=== PATIENT | female | born 1950 | race Caucasian/White ===

== ENCOUNTER 2017-03-12 04:20 | Inpatient (IN) ==
[2017-03-12 05:54] LABS: Hematocrit 36.9 VOL% (35.7-47.0); Hemoglobin 12.9 GM/DL (12.0-16.0); Lymphocytes % 5.4 % (21.3-54.2); Mean Corpuscular Hemoglobin 30 PG (27-34); Mean Corpuscular Volume 85.2 FL (87-102); Mean Platelet Volume 9.2 FL (9.6-12.0); Monocytes % 5.7 % (1.7-12.7); Neutrophils % 87.9 % (38.7-73.9); Platelet Count 298 T/CUMM (130-400); Red Blood Count 4.33 MC/CUMM (3.8-5.5); Red Cell Distribution Width 13.7 % (9.3-17.3)
[2017-03-12 05:55] LABS: Basophils % 0.2 % (0.0-0.8); Eosinophils % 0.2 % (0.00-10.9); Immature Granulocytes % 0.6 %; Immature Granulocytes Absolute 0.11 #; Monocytes # 1.1 10*3/uL (0.11-0.8); Neutrophils # 16.7 10*3/uL (1.4-7.4)
[2017-03-12] MEDS ORDERED: cefTRIAXone 1,000 MG in SODIUM CHLORIDE 0.9% 100 ML IV STA (06:02)
[2017-03-12] MEDS ORDERED: ACETAMINOPHEN 325 MG TABLET PO PRN (06:04)
[2017-03-12] MEDS ORDERED: ONDANSETRON 4 MG/2 ML VIAL IV PRN (06:04)
[2017-03-12] MEDS ORDERED: GLUCAGON 1 MG VIAL IM PRN (06:04)
[2017-03-12] MEDS ORDERED: DEXTROSE 50% 25 GM/50 ML VIAL IV PRN (06:04)
[2017-03-12 06:07] LABS: Apearance,Urine CLEAR (Clear); Bilirubin,Urine Negative (Negative); Blood, Urine Small mg/dL (Negative); Glucose,Urine (UA) 150 mg/dL (Negative); Ketones,Urine Negative (Negative); Mucus,Urine Occasional /LPF (Occasional); Nitrite,Urine Negative (Negative); Protein,Urine >=500 MG/DL; Urine Color Yellow (Yellow); Urine Specific Gravity 1.009 (1.001-1.035); Urine Urobilinogen < 2.0 EU/DL (0.2-1.0)
[2017-03-12 06:09] LABS: Barbiturates Screen,Urine Negative (Negative); Benzodiazepines Screen,Urine Positive (Negative); Cannabinoid Screen,Urine Negative (Negative); Opiate Screen,Urine Negative (Negative); Phencyclidine Screen,Urine Negative (Negative)
[2017-03-12] MEDS ORDERED: SODIUM CHLORIDE 0.9% 1,000 ML IV SCH (06:30)
[2017-03-12 06:31] LABS: Bilirubin,Total 0.4 MG/DL (0.2-1.0); Calcium 8.7 MG/DL (8.5-10.1); Osmolality,Calculated 290.3 MOS/KG (273-304); Potassium 4.2 MMOL/L (3.5-5.1); Total Protein 5.8 G/DL (6.4-8.3)
[2017-03-12] MEDS ORDERED: cefTRIAXone 1,000 MG VIAL ONE (07:03)
[2017-03-12] MEDS ORDERED: DEXTROSE 50% 25 GM/50 ML VIAL IV STA (07:18)
[2017-03-12] MEDS: DEXTROSE 5% NACL 0.9% 1,000 ML IV SCH ×2 (08:26→16:34)
[2017-03-12] MEDS ORDERED: [UNRECOGNIZED DRUG - OTHER] PO SCH (09:00)
[2017-03-12] MEDS: FLUoxetine 20 MG CAPSULE PO SCH (10:11)
[2017-03-12] MEDS: ALPRAZolam 0.5 MG TABLET PO SCH ×3 (10:11→20:57)
[2017-03-12] MEDS: DOCUSATE SODIUM 100 MG CAPSULE PO SCH ×2 (10:12→20:56)
[2017-03-12] MEDS: FELODIPINE 5 MG TABLET PO SCH (10:12)
[2017-03-12] MEDS: FENOFIBRATE 145 MG TABLET PO SCH (10:13)
[2017-03-12] MEDS: DIGOXIN 0.25 MG TABLET PO SCH (10:13)
[2017-03-12] MEDS: PANTOPRAZOLE 40 MG TABLET PO SCH (10:14)
[2017-03-12] MEDS: ATORVASTATIN 40 MG TABLET PO SCH (10:16)
[2017-03-12] MEDS: INSULIN REGULAR 100 UNIT/ML SUBCUT SCH ×3 (12:24→20:57)
[2017-03-13] MEDS: DEXTROSE 5% NACL 0.9% 1,000 ML IV SCH ×2 (00:35→17:25)
[2017-03-13 06:32] LABS: Basophils % 0.5 % (0.0-0.8); Eosinophils # 0.1 10*3/uL (0.0-0.87); Eosinophils % 0.6 % (0.00-10.9); Hematocrit 31.4 VOL% (35.7-47.0); Hemoglobin 10.6 GM/DL (12.0-16.0); Immature Granulocytes % 0.5 %; Immature Granulocytes Absolute 0.04 #; Lymphocytes # 1.7 10*3/uL (1.4-4.0); Lymphocytes % 20.2 % (21.3-54.2); Mean Corpuscular HGB Conc 33.8 GM/DL (32-36); Mean Corpuscular Hemoglobin 29 PG (27-34); Mean Corpuscular Volume 86.5 FL (87-102); Mean Platelet Volume 9.7 FL (9.6-12.0); Monocytes # 0.8 10*3/uL (0.11-0.8); Monocytes % 9.9 % (1.7-12.7); Neutrophils # 5.7 10*3/uL (1.4-7.4); Neutrophils % 68.3 % (38.7-73.9); Platelet Count 250 T/CUMM (130-400); Red Blood Count 3.63 MC/CUMM (3.8-5.5); Red Cell Distribution Width 14.4 % (9.3-17.3); White Blood Count 8.4 T/CUMM (4-12)
[2017-03-13] MEDS: LEVOTHYROXINE 100 MCG TABLET PO SCH (06:50)
[2017-03-13 07:09] LABS: Albumin 2.3 G/DL (3.4-5.0); Bilirubin,Total 0.8 MG/DL (0.2-1.0); Osmolality,Calculated 295.1 MOS/KG (273-304); Potassium 3.8 MMOL/L (3.5-5.1); Risk Ratio 4.18; Total Protein 4.8 G/DL (6.4-8.3); VLDL CHOLESTEROL 45.6 MG/DL
[2017-03-13 07:56] LABS: Free T4 (Free Thyroxine) 1.31 NG/DL (0.76-1.46); Thyroid Stimulating Hormone 0.078 uIU/ml (0.358-3.74)
[2017-03-13] MEDS: INSULIN REGULAR 100 UNIT/ML SUBCUT SCH ×4 (09:02→22:35)
[2017-03-13] MEDS: ALPRAZolam 0.5 MG TABLET PO SCH ×3 (09:03→21:40)
[2017-03-13 09:55] LABS: Basophils # 0.1 10*3/uL (0.0-0.2); Basophils % 0.7 % (0.0-0.8); Eosinophils # 0.1 10*3/uL (0.0-0.87); Eosinophils % 0.7 % (0.00-10.9); Hematocrit 31.1 VOL% (35.7-47.0); Hemoglobin 10.5 GM/DL (12.0-16.0); Immature Granulocytes % 0.5 %; Immature Granulocytes Absolute 0.04 #; Lymphocytes # 1.5 10*3/uL (1.4-4.0); Lymphocytes % 18.8 % (21.3-54.2); Mean Corpuscular HGB Conc 33.8 GM/DL (32-36); Mean Corpuscular Hemoglobin 30 PG (27-34); Mean Corpuscular Volume 87.4 FL (87-102); Mean Platelet Volume 9.2 FL (9.6-12.0); Monocytes # 0.7 10*3/uL (0.11-0.8); Monocytes % 7.9 % (1.7-12.7); Neutrophils # 5.8 10*3/uL (1.4-7.4); Neutrophils % 71.4 % (38.7-73.9); Platelet Count 245 T/CUMM (130-400); Red Blood Count 3.56 MC/CUMM (3.8-5.5); Red Cell Distribution Width 14.4 % (9.3-17.3); White Blood Count 8.2 T/CUMM (4-12)
[2017-03-13] MEDS: PANTOPRAZOLE 40 MG TABLET PO SCH (11:14)
[2017-03-13] MEDS: ATORVASTATIN 40 MG TABLET PO SCH (11:14)
[2017-03-13] MEDS: FLUoxetine 20 MG CAPSULE PO SCH ×2 (11:14→11:26)
[2017-03-13] MEDS: DOCUSATE SODIUM 100 MG CAPSULE PO SCH ×2 (11:46→21:37)
[2017-03-13] MEDS: DIGOXIN 0.25 MG TABLET PO SCH (11:46)
[2017-03-13] MEDS: FENOFIBRATE 145 MG TABLET PO SCH (11:50)
[2017-03-13] MEDS: FELODIPINE 5 MG TABLET PO SCH (11:50)
[2017-03-13] MEDS ORDERED: amLODIPine 5 MG TABLET PO SCH (14:00)
[2017-03-13] MEDS: amLODIPine 5 MG TABLET PO SCH ×2 (18:00→21:38)
[2017-03-13] MEDS ORDERED: FUROSEMIDE 40 MG TABLET PO SCH (21:00)
[2017-03-13] MEDS: CARVEDILOL 25 MG TABLET PO SCH (21:37)
[2017-03-14] MEDS: LEVOTHYROXINE 100 MCG TABLET PO SCH (06:48)
[2017-03-14] MEDS: FLUoxetine 20 MG CAPSULE PO SCH (09:28)
[2017-03-14] MEDS: DOCUSATE SODIUM 100 MG CAPSULE PO SCH ×2 (09:28→20:44)
[2017-03-14] MEDS: CARVEDILOL 25 MG TABLET PO SCH ×2 (09:29→20:44)
[2017-03-14] MEDS: DIGOXIN 0.25 MG TABLET PO SCH (09:30)
[2017-03-14] MEDS: FUROSEMIDE 40 MG TABLET PO SCH ×2 (09:30→18:49)
[2017-03-14] MEDS: PANTOPRAZOLE 40 MG TABLET PO SCH (09:31)
[2017-03-14] MEDS: amLODIPine 5 MG TABLET PO SCH ×2 (09:31→20:44)
[2017-03-14] MEDS: ATORVASTATIN 40 MG TABLET PO SCH (09:32)
[2017-03-14] MEDS: INSULIN REGULAR 100 UNIT/ML SUBCUT SCH ×4 (09:32→22:30)
[2017-03-14] MEDS: ALPRAZolam 0.5 MG TABLET PO SCH ×3 (09:34→20:47)
[2017-03-14] MEDS: FENOFIBRATE 145 MG TABLET PO SCH (09:42)
[2017-03-15] MEDS: LEVOTHYROXINE 100 MCG TABLET PO SCH (06:18)
[2017-03-15 08:43] LABS: Basophils # 0.1 10*3/uL (0.0-0.2); Basophils % 0.7 % (0.0-0.8); Eosinophils # 0.2 10*3/uL (0.0-0.87); Hematocrit 32.6 VOL% (35.7-47.0); Hemoglobin 11.3 GM/DL (12.0-16.0); Immature Granulocytes % 0.5 %; Immature Granulocytes Absolute 0.04 #; Lymphocytes # 1.5 10*3/uL (1.4-4.0); Mean Corpuscular HGB Conc 34.7 GM/DL (32-36); Mean Corpuscular Hemoglobin 29 PG (27-34); Mean Corpuscular Volume 84.9 FL (87-102); Mean Platelet Volume 9.4 FL (9.6-12.0); Monocytes # 0.5 10*3/uL (0.11-0.8); Monocytes % 6.7 % (1.7-12.7); Neutrophils # 5.7 10*3/uL (1.4-7.4); Neutrophils % 71.1 % (38.7-73.9); Platelet Count 292 T/CUMM (130-400); Red Blood Count 3.84 MC/CUMM (3.8-5.5); Red Cell Distribution Width 13.5 % (9.3-17.3)
[2017-03-15 09:08] LABS: Calcium 8.7 MG/DL (8.5-10.1); Magnesium 1.7 MG/DL (1.8-2.4); Osmolality,Calculated 294.1 MOS/KG (273-304); Potassium 3.8 MMOL/L (3.5-5.1)
[2017-03-15] MEDS: ALPRAZolam 0.5 MG TABLET PO SCH ×3 (09:22→21:23)
[2017-03-15] MEDS: FLUoxetine 20 MG CAPSULE PO SCH (09:23)
[2017-03-15] MEDS: INSULIN REGULAR 100 UNIT/ML SUBCUT SCH ×4 (09:23→21:23)
[2017-03-15] MEDS: amLODIPine 5 MG TABLET PO SCH ×2 (09:23→21:23)
[2017-03-15] MEDS: PANTOPRAZOLE 40 MG TABLET PO SCH (09:24)
[2017-03-15] MEDS: FUROSEMIDE 40 MG TABLET PO SCH ×2 (09:24→16:54)
[2017-03-15] MEDS: FENOFIBRATE 145 MG TABLET PO SCH (09:24)
[2017-03-15] MEDS: ATORVASTATIN 40 MG TABLET PO SCH (09:24)
[2017-03-15] MEDS: CARVEDILOL 25 MG TABLET PO SCH ×2 (09:24→21:19)
[2017-03-15] MEDS: DIGOXIN 0.25 MG TABLET PO SCH (09:24)
[2017-03-15] MEDS: DOCUSATE SODIUM 100 MG CAPSULE PO SCH ×3 (11:11→21:25)
[2017-03-15] MEDS: INSULIN ASPART PROTAMINE/ASPART 70/30 100 UNIT/ML SUBCUT SCH (16:57)
[2017-03-15] MEDS ORDERED: INSULIN GLARGINE 100 UNIT/ML SUBCUT SCH (21:00)
[2017-03-16] MEDS: FENOFIBRATE 145 MG TABLET PO SCH (10:00)
[2017-03-16] MEDS: DIGOXIN 0.25 MG TABLET PO SCH (10:00)
[2017-03-16] MEDS: ALPRAZolam 0.5 MG TABLET PO SCH (10:01)
[2017-03-16] MEDS: FUROSEMIDE 40 MG TABLET PO SCH (10:01)
[2017-03-16] MEDS: LEVOTHYROXINE 100 MCG TABLET PO SCH (10:01)
[2017-03-16] MEDS: PANTOPRAZOLE 40 MG TABLET PO SCH (10:01)
[2017-03-16] MEDS: FLUoxetine 20 MG CAPSULE PO SCH (10:01)
[2017-03-16] MEDS: amLODIPine 5 MG TABLET PO SCH (10:02)
[2017-03-16] MEDS: ATORVASTATIN 40 MG TABLET PO SCH (10:02)
[2017-03-16] MEDS: CARVEDILOL 25 MG TABLET PO SCH (10:02)
[2017-03-16] MEDS: DOCUSATE SODIUM 100 MG CAPSULE PO SCH (10:02)
[2017-03-16] MEDS: INSULIN REGULAR 100 UNIT/ML SUBCUT SCH ×2 (10:03→12:35)
[2017-03-16] MEDS: INSULIN ASPART PROTAMINE/ASPART 70/30 100 UNIT/ML SUBCUT SCH (10:17)
[2017-03-16 11:55] VITALS: BP 138/64
== END 2017-03-16 13:33 | disposition home health service (06) | DRG 637 ==
LOC: EDBD → EDUNIT# → N.ED 04:20 → N.EDINP 04:20 → N.TELES 08:06
PROVIDERS: ADMIT Family Medicine; ATTEND Family Medicine

== ENCOUNTER 2017-03-25 14:13 | Inpatient (IN) ==
[2017-03-25] MEDS ORDERED: MAGNESIUM HYDROXIDE SUSP 30 ML UDCUP PO PRN (14:19)
[2017-03-25] MEDS: PANTOPRAZOLE 40 MG VIAL IV SCH (17:31)
[2017-03-25] MEDS: SODIUM CHLORIDE 0.9% 1,000 ML IV SCH (17:31)
[2017-03-25] MEDS: INSULIN LISPRO 100 UNIT/ML SUBCUT SCH ×2 (17:34→23:19)
[2017-03-25 19:29] LABS: Basophils # 0.1 10*3/uL (0.0-0.2); Basophils % 0.5 % (0.0-0.8); Eosinophils % 0.1 % (0.00-10.9); Hematocrit 31.6 VOL% (35.7-47.0); Hemoglobin 10.6 GM/DL (12.0-16.0); Immature Granulocytes % 0.4 %; Immature Granulocytes Absolute 0.04 #; Lymphocytes # 1.1 10*3/uL (1.4-4.0); Lymphocytes % 11.4 % (21.3-54.2); Mean Corpuscular HGB Conc 33.5 GM/DL (32-36); Mean Corpuscular Hemoglobin 29 PG (27-34); Mean Corpuscular Volume 87.1 FL (87-102); Mean Platelet Volume 9.1 FL (9.6-12.0); Monocytes # 0.8 10*3/uL (0.11-0.8); Monocytes % 7.9 % (1.7-12.7); Neutrophils # 7.7 10*3/uL (1.4-7.4); Neutrophils % 79.7 % (38.7-73.9); Platelet Count 353 T/CUMM (130-400); Red Blood Count 3.63 MC/CUMM (3.8-5.5); Red Cell Distribution Width 13.8 % (9.3-17.3); White Blood Count 9.6 T/CUMM (4-12)
[2017-03-25 19:48] LABS: Albumin 2.9 G/DL (3.4-5.0); Bilirubin,Total 0.7 MG/DL (0.2-1.0); Calcium 8.4 MG/DL (8.5-10.1); Total Protein 5.8 G/DL (6.4-8.3)
[2017-03-25 19:49] LABS: Magnesium 1.7 MG/DL (1.8-2.4); Osmolality,Calculated 290.5 MOS/KG (273-304); Potassium 3.9 MMOL/L (3.5-5.1)
[2017-03-25 20:54] LABS: Apearance,Urine CLEAR (Clear); Bilirubin,Urine Negative (Negative); Blood, Urine Small mg/dL (Negative); Glucose,Urine (UA) 150 mg/dL (Negative); Hyaline Casts,Urine 10 /LPF (0-3); Ketones,Urine 5 mg/dL (Negative); Nitrite,Urine Negative (Negative); Protein,Urine >=500 MG/DL; RBC,Urine 4 /HPF (0-4); Squamous Epithelial Cell,Urine Occasional /HPF (0-10); Urine Color Yellow (Yellow); Urine Specific Gravity 1.042 (1.001-1.035); Urine Urobilinogen < 2.0 EU/DL (0.2-1.0); WBC,Urine 1 /HPF (0-6)
[2017-03-25] MEDS: CARVEDILOL 25 MG TABLET PO SCH (23:18)
[2017-03-25] MEDS: ALPRAZolam 0.5 MG TABLET PO SCH (23:18)
[2017-03-25] MEDS: ONDANSETRON 4 MG/2 ML VIAL IV PRN (23:22)
[2017-03-26] MEDS: SODIUM CHLORIDE 0.9% 1,000 ML IV SCH ×3 (02:13→18:15)
[2017-03-26] MEDS: LEVOTHYROXINE 125 MCG TABLET PO SCH (06:24)
[2017-03-26 07:09] LABS: Basophils # 0.1 10*3/uL (0.0-0.2); Basophils % 0.8 % (0.0-0.8); Eosinophils # 0.1 10*3/uL (0.0-0.87); Eosinophils % 1.3 % (0.00-10.9); Hematocrit 28.9 VOL% (35.7-47.0); Hemoglobin 9.9 GM/DL (12.0-16.0); Immature Granulocytes % 0.5 %; Immature Granulocytes Absolute 0.03 #; Lymphocytes # 1.3 10*3/uL (1.4-4.0); Mean Corpuscular HGB Conc 34.3 GM/DL (32-36); Mean Corpuscular Hemoglobin 29 PG (27-34); Mean Platelet Volume 8.8 FL (9.6-12.0); Monocytes # 0.6 10*3/uL (0.11-0.8); Monocytes % 9.2 % (1.7-12.7); Neutrophils % 66.2 % (38.7-73.9); Platelet Count 297 T/CUMM (130-400); White Blood Count 6.1 T/CUMM (4-12)
[2017-03-26 07:46] LABS: Osmolality,Calculated 286.5 MOS/KG (273-304); Potassium 3.5 MMOL/L (3.5-5.1); Risk Ratio 5.5; VLDL CHOLESTEROL 80.4 MG/DL
[2017-03-26 07:55] LABS: Free T4 (Free Thyroxine) 1.41 NG/DL (0.76-1.46); Thyroid Stimulating Hormone 0.193 uIU/ml (0.358-3.74)
[2017-03-26] MEDS ORDERED: GLUCAGON 1 MG VIAL IM PRN (08:23)
[2017-03-26] MEDS ORDERED: DEXTROSE 50% 25 GM/50 ML VIAL IV PRN (08:23)
[2017-03-26] MEDS: FLUoxetine 20 MG CAPSULE PO SCH (08:45)
[2017-03-26] MEDS: CARVEDILOL 25 MG TABLET PO SCH ×2 (08:45→21:05)
[2017-03-26] MEDS: ALPRAZolam 0.5 MG TABLET PO SCH ×3 (08:45→21:05)
[2017-03-26] MEDS: FENOFIBRATE 145 MG TABLET PO SCH (08:45)
[2017-03-26] MEDS: INSULIN LISPRO 100 UNIT/ML SUBCUT SCH ×4 (08:45→21:05)
[2017-03-26] MEDS: FELODIPINE 5 MG TABLET PO SCH (08:45)
[2017-03-26] MEDS: PANTOPRAZOLE 40 MG VIAL IV SCH (08:46)
[2017-03-26] MEDS: ATORVASTATIN 40 MG TABLET PO SCH (08:46)
[2017-03-26] MEDS: SOLIFENACIN 5 MG TABLET PO SCH (08:46)
[2017-03-26] MEDS ORDERED: ZINC OXIDE PASTE 113 GM TUBE TOP PRN (13:06)
[2017-03-27] MEDS: SODIUM CHLORIDE 0.9% 1,000 ML IV SCH ×3 (02:15→19:46)
[2017-03-27 05:49] LABS: Basophils % 0.7 % (0.0-0.8); Eosinophils # 0.2 10*3/uL (0.0-0.87); Eosinophils % 3.4 % (0.00-10.9); Hematocrit 27.3 VOL% (35.7-47.0); Hemoglobin 9.3 GM/DL (12.0-16.0); Immature Granulocytes % 0.6 %; Immature Granulocytes Absolute 0.03 #; Lymphocytes # 0.8 10*3/uL (1.4-4.0); Lymphocytes % 14.7 % (21.3-54.2); Mean Corpuscular HGB Conc 34.1 GM/DL (32-36); Mean Corpuscular Hemoglobin 29 PG (27-34); Mean Corpuscular Volume 85.8 FL (87-102); Monocytes # 0.5 10*3/uL (0.11-0.8); Monocytes % 9.1 % (1.7-12.7); Neutrophils # 3.8 10*3/uL (1.4-7.4); Neutrophils % 71.5 % (38.7-73.9); Platelet Count 286 T/CUMM (130-400); Red Blood Count 3.18 MC/CUMM (3.8-5.5); Red Cell Distribution Width 13.9 % (9.3-17.3); White Blood Count 5.4 T/CUMM (4-12)
[2017-03-27 06:12] LABS: Calcium 7.7 MG/DL (8.5-10.1); Potassium 4.1 MMOL/L (3.5-5.1)
[2017-03-27] MEDS: LEVOTHYROXINE 125 MCG TABLET PO SCH (06:35)
[2017-03-27] MEDS: INSULIN LISPRO 100 UNIT/ML SUBCUT SCH ×4 (09:58→21:05)
[2017-03-27] MEDS: ATORVASTATIN 40 MG TABLET PO SCH (10:30)
[2017-03-27] MEDS: CARVEDILOL 25 MG TABLET PO SCH ×2 (10:30→21:05)
[2017-03-27] MEDS: ALPRAZolam 0.5 MG TABLET PO SCH ×3 (10:30→21:05)
[2017-03-27] MEDS: ONDANSETRON 4 MG/2 ML VIAL IV PRN (10:30)
[2017-03-27] MEDS: SOLIFENACIN 5 MG TABLET PO SCH (10:30)
[2017-03-27] MEDS: FLUoxetine 20 MG CAPSULE PO SCH (10:31)
[2017-03-27] MEDS: FELODIPINE 5 MG TABLET PO SCH (10:31)
[2017-03-27] MEDS: FENOFIBRATE 145 MG TABLET PO SCH (10:31)
[2017-03-27] MEDS: PANTOPRAZOLE 40 MG VIAL IV SCH (10:32)
[2017-03-27] MEDS: ACETAMINOPHEN 325 MG TABLET PO PRN (21:02)
[2017-03-28] MEDS: SODIUM CHLORIDE 0.9% 1,000 ML IV SCH ×3 (03:46→22:44)
[2017-03-28 05:47] LABS: Basophils % 0.7 % (0.0-0.8); Hemoglobin 8.9 GM/DL (12.0-16.0); Immature Granulocytes % 0.5 %; Immature Granulocytes Absolute 0.02 #; Lymphocytes # 0.6 10*3/uL (1.4-4.0); Lymphocytes % 13.8 % (21.3-54.2); Mean Corpuscular Hemoglobin 29 PG (27-34); Mean Corpuscular Volume 88.5 FL (87-102); Mean Platelet Volume 9.3 FL (9.6-12.0); Monocytes # 0.5 10*3/uL (0.11-0.8); Monocytes % 12.6 % (1.7-12.7); Neutrophils # 2.9 10*3/uL (1.4-7.4); Neutrophils % 71.4 % (38.7-73.9); Platelet Count 238 T/CUMM (130-400); Red Blood Count 3.05 MC/CUMM (3.8-5.5); Red Cell Distribution Width 14.1 % (9.3-17.3); White Blood Count 4.1 T/CUMM (4-12)
[2017-03-28] MEDS: LEVOTHYROXINE 125 MCG TABLET PO SCH (05:50)
[2017-03-28 06:21] LABS: Albumin 2.4 G/DL (3.4-5.0); Bilirubin,Total 0.7 MG/DL (0.2-1.0); Calcium 7.6 MG/DL (8.5-10.1); Magnesium 1.5 MG/DL (1.8-2.4); Potassium 3.8 MMOL/L (3.5-5.1)
[2017-03-28] MEDS: cefTRIAXone 1,000 MG in SYRINGE 1 EACH IV SCH (06:37)
[2017-03-28] MEDS: ONDANSETRON 4 MG/2 ML VIAL IV PRN ×2 (07:37→20:51)
[2017-03-28] MEDS: ACETAMINOPHEN 325 MG TABLET PO PRN ×3 (07:45→21:37)
[2017-03-28] MEDS: PANTOPRAZOLE 40 MG VIAL IV SCH (08:10)
[2017-03-28] MEDS: INSULIN LISPRO 100 UNIT/ML SUBCUT SCH ×4 (08:59→20:51)
[2017-03-28] MEDS: FLUoxetine 20 MG CAPSULE PO SCH (09:25)
[2017-03-28] MEDS: ALPRAZolam 0.5 MG TABLET PO SCH ×5 (09:25→21:41)
[2017-03-28] MEDS: FELODIPINE 5 MG TABLET PO SCH (09:25)
[2017-03-28] MEDS: FENOFIBRATE 145 MG TABLET PO SCH (09:25)
[2017-03-28] MEDS: CARVEDILOL 25 MG TABLET PO SCH ×4 (09:25→21:41)
[2017-03-28] MEDS: ATORVASTATIN 40 MG TABLET PO SCH (09:25)
[2017-03-28] MEDS: SOLIFENACIN 5 MG TABLET PO SCH (09:25)
[2017-03-28] MEDS ORDERED: MAGNESIUM SULF RIDER 2 GM in PREMIX 1 EACH IV ONE (12:37)
[2017-03-28] MEDS ORDERED: ALUMINUM/MAGNES/SIMETH MAX STR 30 ML UDCUP PO ONE (12:45)
[2017-03-28] MEDS ORDERED: ACETAMINOPHEN 650 MG SUPP RECTAL PRN (22:15)
[2017-03-28] MEDS: methylPREDNISolone SOD SUC 40 MG/1 ML VIAL IV SCH (22:45)
[2017-03-28 23:12] LABS: Apearance,Urine CLEAR (Clear); Bilirubin,Urine Negative (Negative); Blood, Urine Small mg/dL (Negative); Glucose,Urine (UA) 50 mg/dL (Negative); Ketones,Urine 5 mg/dL (Negative); Nitrite,Urine Negative (Negative); Protein,Urine 100 MG/DL; RBC,Urine 1 /HPF (0-4); Urine Color Yellow (Yellow); Urine Specific Gravity 1.008 (1.001-1.035); Urine Urobilinogen < 2.0 EU/DL (0.2-1.0); WBC,Urine <1 /HPF (0-6)
[2017-03-29] MEDS: KETOROLAC 15 MG/1 ML VIAL IV SCH ×2 (01:07→12:10)
[2017-03-29 02:33] LABS: Hematocrit 27.6 VOL% (35.7-47.0); Hemoglobin 9.5 GM/DL (12.0-16.0); Red Blood Count 3.22 MC/CUMM (3.8-5.5); White Blood Count 4.1 T/CUMM (4-12)
[2017-03-29 02:34] LABS: Basophils % 0.5 % (0.0-0.8); Immature Granulocytes % 0.7 %; Immature Granulocytes Absolute 0.03 #; Lymphocytes # 0.4 10*3/uL (1.4-4.0); Lymphocytes % 8.7 % (21.3-54.2); Mean Corpuscular HGB Conc 34.4 GM/DL (32-36); Mean Corpuscular Hemoglobin 30 PG (27-34); Mean Corpuscular Volume 85.7 FL (87-102); Mean Platelet Volume 9.2 FL (9.6-12.0); Monocytes # 0.2 10*3/uL (0.11-0.8); Monocytes % 3.9 % (1.7-12.7); Neutrophils # 3.6 10*3/uL (1.4-7.4); Neutrophils % 86.2 % (38.7-73.9); Platelet Count 202 T/CUMM (130-400)
[2017-03-29 03:03] LABS: Calcium 7.3 MG/DL (8.5-10.1); Osmolality,Calculated 286.3 MOS/KG (273-304); Potassium 3.3 MMOL/L (3.5-5.1)
[2017-03-29 05:04] LABS: Platelet Estimate Normal
[2017-03-29] MEDS: cefTRIAXone 1,000 MG in SYRINGE 1 EACH IV SCH (06:00)
[2017-03-29] MEDS: LEVOTHYROXINE 125 MCG TABLET PO SCH (06:00)
[2017-03-29] MEDS: INSULIN LISPRO 100 UNIT/ML SUBCUT SCH ×4 (08:15→21:04)
[2017-03-29] MEDS: FENOFIBRATE 145 MG TABLET PO SCH (08:16)
[2017-03-29] MEDS: SOLIFENACIN 5 MG TABLET PO SCH (08:16)
[2017-03-29] MEDS: PANTOPRAZOLE 40 MG VIAL IV SCH (08:16)
[2017-03-29] MEDS: FELODIPINE 5 MG TABLET PO SCH (08:16)
[2017-03-29] MEDS: ONDANSETRON 4 MG/2 ML VIAL IV PRN (08:16)
[2017-03-29] MEDS: ATORVASTATIN 40 MG TABLET PO SCH (08:17)
[2017-03-29] MEDS: CARVEDILOL 25 MG TABLET PO SCH ×2 (08:17→21:02)
[2017-03-29] MEDS: ALPRAZolam 0.5 MG TABLET PO SCH ×3 (08:17→21:02)
[2017-03-29] MEDS: FLUoxetine 20 MG CAPSULE PO SCH (08:17)
[2017-03-29] MEDS: SODIUM CHLORIDE 0.9% 1,000 ML IV SCH ×2 (09:08→20:10)
[2017-03-29] MEDS: methylPREDNISolone SOD SUC 40 MG/1 ML VIAL IV SCH ×2 (09:34→21:50)
[2017-03-29] MEDS: NYSTATIN 500,000 UNIT/5 ML UDCUP SWISH/SWAL SCH ×3 (13:54→21:03)
[2017-03-29] MEDS: OSELTAMIVIR 75 MG CAPSULE PO SCH ×2 (16:22→21:02)
[2017-03-30] MEDS: KETOROLAC 15 MG/1 ML VIAL IV SCH ×2 (00:44→12:22)
[2017-03-30] MEDS: SODIUM CHLORIDE 0.9% 1,000 ML IV SCH (05:30)
[2017-03-30] MEDS: cefTRIAXone 1,000 MG in SYRINGE 1 EACH IV SCH (06:06)
[2017-03-30] MEDS: LEVOTHYROXINE 125 MCG TABLET PO SCH ×2 (06:09→07:40)
[2017-03-30] MEDS: INSULIN LISPRO 100 UNIT/ML SUBCUT SCH ×4 (08:51→21:03)
[2017-03-30] MEDS: PANTOPRAZOLE 40 MG VIAL IV SCH (08:52)
[2017-03-30] MEDS: ONDANSETRON 4 MG/2 ML VIAL IV PRN (08:52)
[2017-03-30] MEDS: SOLIFENACIN 5 MG TABLET PO SCH (08:56)
[2017-03-30] MEDS: NYSTATIN 500,000 UNIT/5 ML UDCUP SWISH/SWAL SCH ×4 (08:56→20:00)
[2017-03-30] MEDS: FENOFIBRATE 145 MG TABLET PO SCH (08:56)
[2017-03-30] MEDS: ATORVASTATIN 40 MG TABLET PO SCH (08:56)
[2017-03-30] MEDS: ALPRAZolam 0.5 MG TABLET PO SCH ×3 (08:57→20:00)
[2017-03-30] MEDS: CARVEDILOL 25 MG TABLET PO SCH ×2 (08:57→20:00)
[2017-03-30] MEDS: FELODIPINE 5 MG TABLET PO SCH (08:57)
[2017-03-30] MEDS: FLUoxetine 20 MG CAPSULE PO SCH (08:57)
[2017-03-30] MEDS: OSELTAMIVIR 75 MG CAPSULE PO SCH ×2 (08:57→20:00)
[2017-03-30] MEDS: SODIUM CHLOR 0.45% KCL 20 MEQ 20 MEQ/1,000 ML BAG IV SCH ×2 (09:07→17:01)
[2017-03-30] MEDS: DIGOXIN 0.25 MG TABLET PO SCH (12:23)
[2017-03-30] MEDS ORDERED: PHENOL 1.4% THROAT SPRAY 177 ML BOTTLE PO PRN (16:49)
[2017-03-30] MEDS: traZODone 50 MG TABLET PO PRN (20:00)
[2017-03-31] MEDS: KETOROLAC 15 MG/1 ML VIAL IV SCH ×3 (00:32→22:30)
[2017-03-31] MEDS: SODIUM CHLOR 0.45% KCL 20 MEQ 20 MEQ/1,000 ML BAG IV SCH ×3 (00:33→17:05)
[2017-03-31] MEDS: LEVOTHYROXINE 125 MCG TABLET PO SCH (05:37)
[2017-03-31 06:40] LABS: Basophils % 0.2 % (0.0-0.8); Hematocrit 30.5 VOL% (35.7-47.0); Hemoglobin 10.1 GM/DL (12.0-16.0); Immature Granulocytes % 0.5 %; Immature Granulocytes Absolute 0.02 #; Lymphocytes # 1.1 10*3/uL (1.4-4.0); Lymphocytes % 25.1 % (21.3-54.2); Mean Corpuscular HGB Conc 33.1 GM/DL (32-36); Mean Corpuscular Hemoglobin 29 PG (27-34); Mean Corpuscular Volume 87.1 FL (87-102); Mean Platelet Volume 10.1 FL (9.6-12.0); Monocytes # 0.3 10*3/uL (0.11-0.8); Neutrophils # 2.9 10*3/uL (1.4-7.4); Neutrophils % 68.2 % (38.7-73.9); Platelet Count 239 T/CUMM (130-400); Red Cell Distribution Width 14.8 % (9.3-17.3); White Blood Count 4.2 T/CUMM (4-12)
[2017-03-31 07:03] LABS: Calcium 7.4 MG/DL (8.5-10.1); Osmolality,Calculated 291.8 MOS/KG (273-304); Potassium 3.1 MMOL/L (3.5-5.1)
[2017-03-31] MEDS: POTASSIUM CHLORIDE 10 MEQ TABLET PO SCH ×3 (09:00→22:35)
[2017-03-31] MEDS: NYSTATIN 500,000 UNIT/5 ML UDCUP SWISH/SWAL SCH ×4 (09:00→22:36)
[2017-03-31] MEDS: OSELTAMIVIR 75 MG CAPSULE PO SCH ×3 (09:00→22:35)
[2017-03-31] MEDS: PANTOPRAZOLE 40 MG VIAL IV SCH ×2 (09:00→12:47)
[2017-03-31] MEDS: cefTRIAXone 1,000 MG in SYRINGE 1 EACH IV SCH ×2 (09:00→12:50)
[2017-03-31] MEDS: FENOFIBRATE 145 MG TABLET PO SCH ×2 (09:00→12:49)
[2017-03-31] MEDS: ATORVASTATIN 40 MG TABLET PO SCH ×2 (09:00→12:48)
[2017-03-31] MEDS: CARVEDILOL 25 MG TABLET PO SCH ×3 (09:00→22:36)
[2017-03-31] MEDS: SOLIFENACIN 5 MG TABLET PO SCH ×2 (09:00→12:49)
[2017-03-31] MEDS: FLUoxetine 20 MG CAPSULE PO SCH ×2 (09:00→12:50)
[2017-03-31] MEDS: ALPRAZolam 0.5 MG TABLET PO SCH ×4 (09:00→22:35)
[2017-03-31] MEDS: FELODIPINE 5 MG TABLET PO SCH ×2 (09:00→12:50)
[2017-03-31] MEDS ORDERED: POTASSIUM CHLORIDE INJ 30 MEQ in SODIUM CHLORIDE 0.9% 500 ML IV ONE (09:30)
[2017-03-31] MEDS: INSULIN LISPRO 100 UNIT/ML SUBCUT SCH ×4 (10:22→22:37)
[2017-03-31] MEDS: ACETAMINOPHEN 325 MG TABLET PO PRN (10:26)
[2017-03-31] MEDS: ONDANSETRON 4 MG/2 ML VIAL IV PRN (12:34)
[2017-03-31] MEDS: DIGOXIN 0.25 MG TABLET PO SCH (13:50)
[2017-04-01] MEDS: SODIUM CHLOR 0.45% KCL 20 MEQ 20 MEQ/1,000 ML BAG IV SCH ×2 (01:40→14:26)
[2017-04-01] MEDS: ACETAMINOPHEN 325 MG TABLET PO PRN (05:36)
[2017-04-01] MEDS: LEVOTHYROXINE 125 MCG TABLET PO SCH (05:37)
[2017-04-01 06:09] LABS: Basophils % 0.3 % (0.0-0.8); Hematocrit 27.1 VOL% (35.7-47.0); Hemoglobin 9.1 GM/DL (12.0-16.0); Immature Granulocytes % 0.3 %; Immature Granulocytes Absolute 0.01 #; Lymphocytes # 1.4 10*3/uL (1.4-4.0); Lymphocytes % 40.9 % (21.3-54.2); Mean Corpuscular HGB Conc 33.6 GM/DL (32-36); Mean Corpuscular Hemoglobin 29 PG (27-34); Mean Corpuscular Volume 87.4 FL (87-102); Mean Platelet Volume 9.9 FL (9.6-12.0); Monocytes # 0.3 10*3/uL (0.11-0.8); Monocytes % 7.6 % (1.7-12.7); Neutrophils # 1.7 10*3/uL (1.4-7.4); Neutrophils % 50.9 % (38.7-73.9); Platelet Count 204 T/CUMM (130-400); Red Cell Distribution Width 14.8 % (9.3-17.3); White Blood Count 3.4 T/CUMM (4-12)
[2017-04-01 06:45] LABS: Calcium 6.8 MG/DL (8.5-10.1); Potassium 3.4 MMOL/L (3.5-5.1)
[2017-04-01] MEDS: INSULIN LISPRO 100 UNIT/ML SUBCUT SCH ×4 (08:00→21:46)
[2017-04-01] MEDS: NYSTATIN 500,000 UNIT/5 ML UDCUP SWISH/SWAL SCH ×4 (10:18→21:56)
[2017-04-01] MEDS: SOLIFENACIN 5 MG TABLET PO SCH (10:18)
[2017-04-01] MEDS: FENOFIBRATE 145 MG TABLET PO SCH (10:19)
[2017-04-01] MEDS: ALPRAZolam 0.5 MG TABLET PO SCH ×3 (10:19→21:57)
[2017-04-01] MEDS: CARVEDILOL 25 MG TABLET PO SCH ×2 (10:19→21:56)
[2017-04-01] MEDS: POTASSIUM CHLORIDE 10 MEQ TABLET PO SCH ×2 (10:20→21:56)
[2017-04-01] MEDS: FELODIPINE 5 MG TABLET PO SCH (10:20)
[2017-04-01] MEDS: KETOROLAC 15 MG/1 ML VIAL IV SCH ×2 (10:20→21:54)
[2017-04-01] MEDS: ATORVASTATIN 40 MG TABLET PO SCH (10:20)
[2017-04-01] MEDS: OSELTAMIVIR 75 MG CAPSULE PO SCH ×2 (10:20→21:56)
[2017-04-01] MEDS: FLUoxetine 20 MG CAPSULE PO SCH (10:20)
[2017-04-01] MEDS: PANTOPRAZOLE 40 MG VIAL IV SCH (10:22)
[2017-04-01] MEDS: cefTRIAXone 1,000 MG in SYRINGE 1 EACH IV SCH (10:31)
[2017-04-01] MEDS: DIGOXIN 0.25 MG TABLET PO SCH (13:55)
[2017-04-02] MEDS: SODIUM CHLOR 0.45% KCL 20 MEQ 20 MEQ/1,000 ML BAG IV SCH ×4 (01:00→18:45)
[2017-04-02] MEDS: LEVOTHYROXINE 125 MCG TABLET PO SCH (06:34)
[2017-04-02 07:18] LABS: Basophils % 0.3 % (0.0-0.8); Eosinophils % 0.6 % (0.00-10.9); Hematocrit 28.6 VOL% (35.7-47.0); Hemoglobin 9.6 GM/DL (12.0-16.0); Immature Granulocytes % 0.6 %; Immature Granulocytes Absolute 0.02 #; Lymphocytes # 1.3 10*3/uL (1.4-4.0); Lymphocytes % 36.1 % (21.3-54.2); Mean Corpuscular HGB Conc 33.6 GM/DL (32-36); Mean Corpuscular Hemoglobin 29 PG (27-34); Mean Corpuscular Volume 85.6 FL (87-102); Mean Platelet Volume 10.1 FL (9.6-12.0); Monocytes # 0.2 10*3/uL (0.11-0.8); Monocytes % 6.8 % (1.7-12.7); Neutrophils % 55.6 % (38.7-73.9); Platelet Count 208 T/CUMM (130-400); Red Blood Count 3.34 MC/CUMM (3.8-5.5); Red Cell Distribution Width 15.5 % (9.3-17.3); White Blood Count 3.6 T/CUMM (4-12)
[2017-04-02 07:39] LABS: Burr Cells Slight; Giant Platelets Few; Hypochromasia 1+; Ovalocytes Slight; Platelet Estimate Adequate
[2017-04-02 07:51] LABS: Calcium 6.7 MG/DL (8.5-10.1)
[2017-04-02 08:00] LABS: Alanine Aminotransferase 28 U/L (13-56); Albumin 1.5 G/DL (3.4-5.0); Alkaline Phosphatase 36 U/L (45-117); Aspartate Amino Transferase 41 U/L (0-37); Bilirubin,Total < 0.39 MG/DL (0.2-1.0); Blood Urea Nitrogen 22 MG/DL (7-18); Calcium 6.8 MG/DL (8.5-10.1); Glucose 118 MG/DL (74-106); Osmolality,Calculated 289.8 MOS/KG (273-304); Potassium 4.1 MMOL/L (3.5-5.1); Sodium 144 MMOL/L (136-145); Total Protein 4.3 G/DL (6.4-8.3)
[2017-04-02] MEDS: INSULIN LISPRO 100 UNIT/ML SUBCUT SCH ×4 (08:20→21:01)
[2017-04-02] MEDS: PANTOPRAZOLE 40 MG VIAL IV SCH (10:10)
[2017-04-02] MEDS: ATORVASTATIN 40 MG TABLET PO SCH (10:11)
[2017-04-02] MEDS: SOLIFENACIN 5 MG TABLET PO SCH (10:11)
[2017-04-02] MEDS: FELODIPINE 5 MG TABLET PO SCH (10:11)
[2017-04-02] MEDS: cefTRIAXone 1,000 MG in SYRINGE 1 EACH IV SCH (10:11)
[2017-04-02] MEDS: NYSTATIN 500,000 UNIT/5 ML UDCUP SWISH/SWAL SCH ×4 (10:11→20:59)
[2017-04-02] MEDS: FENOFIBRATE 145 MG TABLET PO SCH (10:12)
[2017-04-02] MEDS: OSELTAMIVIR 75 MG CAPSULE PO SCH ×2 (10:12→20:58)
[2017-04-02] MEDS: CARVEDILOL 25 MG TABLET PO SCH ×2 (10:12→20:58)
[2017-04-02] MEDS: POTASSIUM CHLORIDE 10 MEQ TABLET PO SCH ×2 (10:12→20:58)
[2017-04-02] MEDS: FLUoxetine 20 MG CAPSULE PO SCH (10:12)
[2017-04-02] MEDS: KETOROLAC 15 MG/1 ML VIAL IV SCH ×2 (10:13→20:59)
[2017-04-02] MEDS: DIGOXIN 0.25 MG TABLET PO SCH (13:01)
[2017-04-03 04:53] LABS: Basophils % 0.3 % (0.0-0.8); Hematocrit 29.8 VOL% (35.7-47.0); Hemoglobin 10.2 GM/DL (12.0-16.0); Immature Granulocytes % 0.8 %; Immature Granulocytes Absolute 0.03 #; Lymphocytes # 1.6 10*3/uL (1.4-4.0); Lymphocytes % 38.8 % (21.3-54.2); Mean Corpuscular HGB Conc 34.2 GM/DL (32-36); Mean Corpuscular Hemoglobin 29 PG (27-34); Mean Corpuscular Volume 85.4 FL (87-102); Mean Platelet Volume 10.6 FL (9.6-12.0); Monocytes # 0.3 10*3/uL (0.11-0.8); Neutrophils # 2.1 10*3/uL (1.4-7.4); Neutrophils % 52.1 % (38.7-73.9); Platelet Count 266 T/CUMM (130-400); Red Blood Count 3.49 MC/CUMM (3.8-5.5); Red Cell Distribution Width 15.3 % (9.3-17.3)
[2017-04-03] MEDS: SODIUM CHLOR 0.45% KCL 20 MEQ 20 MEQ/1,000 ML BAG IV SCH ×2 (05:21→13:07)
[2017-04-03 05:23] LABS: Calcium 7.6 MG/DL (8.5-10.1); Magnesium 1.3 MG/DL (1.8-2.4); Osmolality,Calculated 288.1 MOS/KG (273-304); Potassium 4.4 MMOL/L (3.5-5.1)
[2017-04-03 05:39] LABS: Platelet Estimate Normal; Polychromasia Slight
[2017-04-03] MEDS: LEVOTHYROXINE 125 MCG TABLET PO SCH (06:17)
[2017-04-03] MEDS ORDERED: MAGNESIUM SULF RIDER 2 GM in PREMIX 1 EACH IV ONE (07:08)
[2017-04-03] MEDS: ONDANSETRON 4 MG/2 ML VIAL IV PRN ×2 (07:25→20:53)
[2017-04-03] MEDS: FENOFIBRATE 145 MG TABLET PO SCH (08:50)
[2017-04-03] MEDS: NYSTATIN 500,000 UNIT/5 ML UDCUP SWISH/SWAL SCH ×4 (08:50→20:52)
[2017-04-03] MEDS: CARVEDILOL 25 MG TABLET PO SCH ×2 (08:50→20:52)
[2017-04-03] MEDS: FLUoxetine 20 MG CAPSULE PO SCH (08:50)
[2017-04-03] MEDS: INSULIN LISPRO 100 UNIT/ML SUBCUT SCH ×4 (08:50→21:11)
[2017-04-03] MEDS: FELODIPINE 5 MG TABLET PO SCH (08:50)
[2017-04-03] MEDS: OSELTAMIVIR 75 MG CAPSULE PO SCH ×2 (08:50→20:52)
[2017-04-03] MEDS: ATORVASTATIN 40 MG TABLET PO SCH (08:50)
[2017-04-03] MEDS: SOLIFENACIN 5 MG TABLET PO SCH (08:50)
[2017-04-03] MEDS: POTASSIUM CHLORIDE 10 MEQ TABLET PO SCH ×2 (08:50→20:53)
[2017-04-03] MEDS: cefTRIAXone 1,000 MG in SYRINGE 1 EACH IV SCH (08:51)
[2017-04-03] MEDS: PANTOPRAZOLE 40 MG VIAL IV SCH (08:51)
[2017-04-03] MEDS: DIGOXIN 0.25 MG TABLET PO SCH (13:07)
[2017-04-03] MEDS ORDERED: CLORAZEPATE 3.75 MG TABLET PO PRN (16:12)
[2017-04-03] MEDS: traZODone 50 MG TABLET PO PRN (20:53)
[2017-04-04 03:39] LABS: Basophils % 0.7 % (0.0-0.8); Eosinophils # 0.1 10*3/uL (0.0-0.87); Eosinophils % 1.3 % (0.00-10.9); Hematocrit 28.7 VOL% (35.7-47.0); Hemoglobin 9.7 GM/DL (12.0-16.0); Immature Granulocytes % 0.7 %; Immature Granulocytes Absolute 0.03 #; Lymphocytes # 1.7 10*3/uL (1.4-4.0); Lymphocytes % 36.2 % (21.3-54.2); Mean Corpuscular HGB Conc 33.8 GM/DL (32-36); Mean Corpuscular Hemoglobin 29 PG (27-34); Mean Corpuscular Volume 86.2 FL (87-102); Mean Platelet Volume 9.8 FL (9.6-12.0); Monocytes # 0.4 10*3/uL (0.11-0.8); Monocytes % 7.6 % (1.7-12.7); Neutrophils # 2.5 10*3/uL (1.4-7.4); Neutrophils % 53.5 % (38.7-73.9); Platelet Count 342 T/CUMM (130-400); Red Blood Count 3.33 MC/CUMM (3.8-5.5); Red Cell Distribution Width 15.4 % (9.3-17.3); White Blood Count 4.6 T/CUMM (4-12)
[2017-04-04 04:07] LABS: Calcium 7.7 MG/DL (8.5-10.1); Osmolality,Calculated 289.7 MOS/KG (273-304); Potassium 4.5 MMOL/L (3.5-5.1)
[2017-04-04] MEDS: SODIUM CHLOR 0.45% KCL 20 MEQ 20 MEQ/1,000 ML BAG IV SCH ×4 (04:52→11:32)
[2017-04-04 05:02] LABS: Band Neutrophils 1 % (0-10); Eosinophils 4 % (0-10); Lymphocytes 29 % (20-55); Metamyelocytes 1 %; Segmented Neutrophils 62 % (50-85); Total Cells Counted 100
[2017-04-04 05:03] LABS: Anisocytosis 1+; Hypochromasia Slight; Platelet Estimate Normal
[2017-04-04] MEDS: LEVOTHYROXINE 125 MCG TABLET PO SCH (06:46)
[2017-04-04] MEDS: INSULIN LISPRO 100 UNIT/ML SUBCUT SCH ×4 (08:14→21:38)
[2017-04-04] MEDS: SOLIFENACIN 5 MG TABLET PO SCH (09:25)
[2017-04-04] MEDS: NYSTATIN 500,000 UNIT/5 ML UDCUP SWISH/SWAL SCH ×4 (09:25→21:33)
[2017-04-04] MEDS: FENOFIBRATE 145 MG TABLET PO SCH (09:26)
[2017-04-04] MEDS: ATORVASTATIN 40 MG TABLET PO SCH (09:26)
[2017-04-04] MEDS: FELODIPINE 5 MG TABLET PO SCH (09:26)
[2017-04-04] MEDS: PANTOPRAZOLE 40 MG VIAL IV SCH (09:26)
[2017-04-04] MEDS: CARVEDILOL 25 MG TABLET PO SCH ×2 (09:26→21:33)
[2017-04-04] MEDS: cefTRIAXone 1,000 MG in SYRINGE 1 EACH IV SCH (09:26)
[2017-04-04] MEDS: POTASSIUM CHLORIDE 10 MEQ TABLET PO SCH ×2 (09:26→21:33)
[2017-04-04] MEDS: FLUoxetine 20 MG CAPSULE PO SCH (09:26)
[2017-04-04] MEDS: DIGOXIN 0.25 MG TABLET PO SCH (14:09)
[2017-04-04] MEDS: traZODone 50 MG TABLET PO PRN (21:33)
[2017-04-05] MEDS: SODIUM CHLOR 0.45% KCL 20 MEQ 20 MEQ/1,000 ML BAG IV SCH ×2 (01:07→16:34)
[2017-04-05] MEDS: LEVOTHYROXINE 125 MCG TABLET PO SCH (06:00)
[2017-04-05] MEDS: INSULIN LISPRO 100 UNIT/ML SUBCUT SCH ×4 (07:30→21:34)
[2017-04-05 08:45] LABS: Basophils % 0.5 % (0.0-0.8); Eosinophils # 0.1 10*3/uL (0.0-0.87); Eosinophils % 2.4 % (0.00-10.9); Hematocrit 32.5 VOL% (35.7-47.0); Hemoglobin 10.5 GM/DL (12.0-16.0); Immature Granulocytes % 1.7 %; Immature Granulocytes Absolute 0.07 #; Lymphocytes % 24.2 % (21.3-54.2); Mean Corpuscular HGB Conc 32.3 GM/DL (32-36); Mean Corpuscular Hemoglobin 29 PG (27-34); Mean Corpuscular Volume 88.6 FL (87-102); Monocytes # 0.3 10*3/uL (0.11-0.8); Monocytes % 8.1 % (1.7-12.7); Neutrophils # 2.6 10*3/uL (1.4-7.4); Neutrophils % 63.1 % (38.7-73.9); Platelet Count 381 T/CUMM (130-400); Red Blood Count 3.67 MC/CUMM (3.8-5.5); Red Cell Distribution Width 15.5 % (9.3-17.3); White Blood Count 4.2 T/CUMM (4-12)
[2017-04-05 09:02] LABS: Calcium 8.2 MG/DL (8.5-10.1); Osmolality,Calculated 286.8 MOS/KG (273-304); Potassium 4.7 MMOL/L (3.5-5.1)
[2017-04-05 09:14] LABS: Lymphocytes 19 % (20-55); Segmented Neutrophils 73 % (50-85); Total Cells Counted 100
[2017-04-05 09:24] LABS: Hypochromasia 1+
[2017-04-05 09:26] LABS: Platelet Estimate Normal
[2017-04-05] MEDS: ATORVASTATIN 40 MG TABLET PO SCH (11:30)
[2017-04-05] MEDS: NYSTATIN 500,000 UNIT/5 ML UDCUP SWISH/SWAL SCH ×4 (11:30→21:35)
[2017-04-05] MEDS: FELODIPINE 5 MG TABLET PO SCH (11:30)
[2017-04-05] MEDS: FENOFIBRATE 145 MG TABLET PO SCH (11:30)
[2017-04-05] MEDS: FLUoxetine 20 MG CAPSULE PO SCH (11:30)
[2017-04-05] MEDS: CARVEDILOL 25 MG TABLET PO SCH ×2 (11:36→21:34)
[2017-04-05] MEDS: POTASSIUM CHLORIDE 10 MEQ TABLET PO SCH ×2 (11:36→21:35)
[2017-04-05] MEDS: SOLIFENACIN 5 MG TABLET PO SCH (11:36)
[2017-04-05] MEDS: PANTOPRAZOLE 40 MG VIAL IV SCH (11:55)
[2017-04-05] MEDS: cefTRIAXone 1,000 MG in SYRINGE 1 EACH IV SCH (11:57)
[2017-04-05] MEDS: DIGOXIN 0.25 MG TABLET PO SCH (13:59)
[2017-04-06] MEDS: LEVOTHYROXINE 125 MCG TABLET PO SCH (06:31)
[2017-04-06] MEDS: CARVEDILOL 25 MG TABLET PO SCH (09:07)
[2017-04-06] MEDS: POTASSIUM CHLORIDE 10 MEQ TABLET PO SCH (09:08)
[2017-04-06] MEDS: NYSTATIN 500,000 UNIT/5 ML UDCUP SWISH/SWAL SCH (09:08)
[2017-04-06] MEDS: ATORVASTATIN 40 MG TABLET PO SCH (09:09)
[2017-04-06] MEDS: PANTOPRAZOLE 40 MG VIAL IV SCH (09:10)
[2017-04-06] MEDS: FELODIPINE 5 MG TABLET PO SCH (09:10)
[2017-04-06] MEDS: SOLIFENACIN 5 MG TABLET PO SCH (09:14)
[2017-04-06] MEDS: FENOFIBRATE 145 MG TABLET PO SCH (09:14)
[2017-04-06] MEDS: FLUoxetine 20 MG CAPSULE PO SCH (09:14)
[2017-04-06] MEDS: INSULIN LISPRO 100 UNIT/ML SUBCUT SCH ×2 (11:56→12:40)
[2017-04-06] MEDS: SODIUM CHLOR 0.45% KCL 20 MEQ 20 MEQ/1,000 ML BAG IV SCH (11:57)
[2017-04-06 12:29] VITALS: BP 138/63
== END 2017-04-06 12:35 | disposition swing bed (61) | DRG 194 ==
LOC: N.2E 16:12
PROVIDERS: ADMIT Family Medicine; ATTEND Family Medicine

== ENCOUNTER 2017-05-03 18:30 | Inpatient (IN) ==
[2017-05-03] MEDS ORDERED: ONDANSETRON 4 MG/2 ML VIAL IV STA (19:33)
[2017-05-03] MEDS ORDERED: SODIUM CHLORIDE 0.9% 500 ML IV STA (19:33)
[2017-05-03] MEDS ORDERED: MORPHINE 2 MG/1 ML SYRINGE IV STA (19:33)
[2017-05-03] MEDS ORDERED: ONDANSETRON 4 MG/2 ML VIAL ONE (20:18)
[2017-05-03] MEDS ORDERED: MORPHINE 2 MG/1 ML SYRINGE ONE (20:18)
[2017-05-03 20:55] LABS: Basophils # 0.1 10*3/uL (0.0-0.2); Basophils % 0.6 % (0.0-0.8); Eosinophils # 0.2 10*3/uL (0.0-0.87); Eosinophils % 1.9 % (0.00-10.9); Hematocrit 28.9 VOL% (35.7-47.0); Hemoglobin 9.7 GM/DL (12.0-16.0); Immature Granulocytes % 0.5 %; Immature Granulocytes Absolute 0.05 #; Lymphocytes # 2.2 10*3/uL (1.4-4.0); Mean Corpuscular HGB Conc 33.6 GM/DL (32-36); Mean Corpuscular Hemoglobin 29 PG (27-34); Mean Corpuscular Volume 85.8 FL (87-102); Monocytes # 0.7 10*3/uL (0.11-0.8); Monocytes % 7.6 % (1.7-12.7); Neutrophils # 6.1 10*3/uL (1.4-7.4); Neutrophils % 65.4 % (38.7-73.9); Platelet Count 231 T/CUMM (130-400); Red Blood Count 3.37 MC/CUMM (3.8-5.5); Red Cell Distribution Width 14.3 % (9.3-17.3); White Blood Count 9.3 T/CUMM (4-12)
[2017-05-03 21:04] LABS: INR 1.1; PT Patient Result 11.1 SECS
[2017-05-03 21:12] LABS: Alanine Aminotransferase 21 U/L (13-56); Albumin 2.6 G/DL (3.4-5.0); Alkaline Phosphatase 58 U/L (45-117); Aspartate Amino Transferase 17 U/L (0-37); Bilirubin,Total < 0.39 MG/DL (0.2-1.0); Blood Urea Nitrogen 43 MG/DL (7-18); Calcium 8.1 MG/DL (8.5-10.1); Glucose 85 MG/DL (74-106); Osmolality,Calculated 284.7 MOS/KG (273-304); Sodium 138 MMOL/L (136-145); Total Protein 5.1 G/DL (6.4-8.3)
[2017-05-03] MEDS ORDERED: ALPRAZolam 0.5 MG TABLET PO PRN (22:09)
[2017-05-03] MEDS ORDERED: GLUCAGON 1 MG VIAL IM PRN (22:09)
[2017-05-03] MEDS ORDERED: DEXTROSE 50% 25 GM/50 ML VIAL IV PRN (22:09)
[2017-05-03] MEDS ORDERED: MORPHINE 2 MG/1 ML SYRINGE IV PRN (22:09)
[2017-05-03] MEDS ORDERED: traZODone 50 MG TABLET PO PRN (22:09)
[2017-05-03] MEDS ORDERED: ACETAMINOPHEN 325 MG TABLET PO PRN ×2 (22:09)
[2017-05-03] MEDS ORDERED: LACTULOSE 20 GM/30 ML UDCUP PO PRN (22:09)
[2017-05-03 22:25] LABS: Amorphous Crystals,Urine Occasional /HPF (Few); Apearance,Urine Slightly Hazy (Clear); Bacteria,Urine Occasional /HPF (Few); Bilirubin,Urine Negative (Negative); Blood, Urine Negative (Negative); Glucose,Urine (UA) 50 mg/dL (Negative); Ketones,Urine Negative (Negative); Nitrite,Urine Negative (Negative); Protein,Urine 100 MG/DL; Urine Color Yellow (Yellow); Urine Specific Gravity 1.006 (1.001-1.035); Urine Urobilinogen < 2.0 EU/DL (0.2-1.0); WBC,Urine 2 /HPF (0-6)
[2017-05-03 22:29] LABS: Barbiturates Screen,Urine Negative (Negative); Benzodiazepines Screen,Urine Positive (Negative); Cannabinoid Screen,Urine Negative (Negative); Opiate Screen,Urine Positive (Negative); Phencyclidine Screen,Urine Negative (Negative)
[2017-05-03] MEDS ORDERED: SODIUM CHLORIDE 0.9% 1,000 ML IV SCH (22:30)
[2017-05-04 06:19] LABS: Basophils % 0.6 % (0.0-0.8); Eosinophils # 0.2 10*3/uL (0.0-0.87); Eosinophils % 3.3 % (0.00-10.9); Hematocrit 26.2 VOL% (35.7-47.0); Hemoglobin 8.5 GM/DL (12.0-16.0); Immature Granulocytes % 0.7 %; Immature Granulocytes Absolute 0.05 #; Lymphocytes # 1.8 10*3/uL (1.4-4.0); Lymphocytes % 25.1 % (21.3-54.2); Mean Corpuscular HGB Conc 32.4 GM/DL (32-36); Mean Corpuscular Hemoglobin 28 PG (27-34); Mean Platelet Volume 10.4 FL (9.6-12.0); Monocytes # 0.6 10*3/uL (0.11-0.8); Monocytes % 8.1 % (1.7-12.7); Neutrophils # 4.4 10*3/uL (1.4-7.4); Neutrophils % 62.2 % (38.7-73.9); Platelet Count 224 T/CUMM (130-400); Red Blood Count 3.01 MC/CUMM (3.8-5.5); Red Cell Distribution Width 14.5 % (9.3-17.3); White Blood Count 7.1 T/CUMM (4-12)
[2017-05-04 07:00] LABS: Albumin 2.2 G/DL (3.4-5.0); Bilirubin,Total 0.4 MG/DL (0.2-1.0); Calcium 7.4 MG/DL (8.5-10.1); Osmolality,Calculated 297.3 MOS/KG (273-304); Potassium 3.2 MMOL/L (3.5-5.1); Risk Ratio 4.17; Total Protein 4.6 G/DL (6.4-8.3)
[2017-05-04] MEDS ORDERED: ceFAZolin 1,000 MG in SYRINGE 1 EACH IV ONE (07:23)
[2017-05-04] MEDS ORDERED: MAGNESIUM SULF RIDER 2 GM in PREMIX 1 EACH IV ONE (08:10)
[2017-05-04] MEDS: INSULIN ASPART PROTAMINE/ASPART 70/30 100 UNIT/ML SUBCUT SCH ×2 (08:51→18:19)
[2017-05-04] MEDS ORDERED: PANTOPRAZOLE 40 MG TABLET PO SCH (09:00)
[2017-05-04] MEDS ORDERED: FELODIPINE 5 MG TABLET PO SCH (09:00)
[2017-05-04] MEDS: INSULIN REGULAR 100 UNIT/ML SUBCUT SCH ×4 (10:10→21:26)
[2017-05-04] MEDS: DIGOXIN 0.25 MG TABLET PO SCH (10:11)
[2017-05-04] MEDS: CARVEDILOL 25 MG TABLET PO SCH ×2 (10:11→21:40)
[2017-05-04] MEDS ORDERED: ZINC OXIDE PASTE 113 GM TUBE TOP PRN (12:25)
[2017-05-04] MEDS: POTASSIUM CHLORIDE INJ 40 MEQ in LACTATED RINGERS 1,000 ML IV SCH ×2 (12:30→21:29)
[2017-05-04] MEDS ORDERED: BACITRACIN OINT 0.9 GM PACK TOP ONE (13:51)
[2017-05-04] MEDS ORDERED: MORPHINE 2 MG/1 ML SYRINGE IV PRN (14:26)
[2017-05-04] MEDS: FUROSEMIDE 40 MG TABLET PO SCH ×2 (14:28→21:25)
[2017-05-04] MEDS: FLUoxetine 20 MG CAPSULE PO SCH (14:28)
[2017-05-04] MEDS: DOCUSATE SODIUM 100 MG CAPSULE PO SCH ×2 (14:28→21:25)
[2017-05-04] MEDS: ATORVASTATIN 40 MG TABLET PO SCH (14:28)
[2017-05-04] MEDS: LEVOTHYROXINE 100 MCG TABLET PO SCH (14:28)
[2017-05-04] MEDS: PANTOPRAZOLE 40 MG TABLET PO SCH (14:28)
[2017-05-04] MEDS: SOLIFENACIN 5 MG TABLET PO SCH (14:29)
[2017-05-04] MEDS: FENOFIBRATE 145 MG TABLET PO SCH (14:29)
[2017-05-04] MEDS ORDERED: MIDAZOLAM 2 MG/2 ML VIAL ONE (15:35)
[2017-05-04] MEDS ORDERED: PROPOFOL 500 MG/50 ML BOTTLE IV ONE (15:35)
[2017-05-04] MEDS ORDERED: fentaNYL 100 MCG/2 ML VIAL ONE (15:35)
[2017-05-04] MEDS ORDERED: KETAMINE 500 MG/10 ML VIAL ONE (15:35)
[2017-05-04] MEDS: KETOROLAC 15 MG/1 ML VIAL IV SCH ×2 (16:51→21:26)
[2017-05-04] MEDS: MORPHINE 2 MG/1 ML SYRINGE IV PRN (18:20)
[2017-05-04] MEDS: ceFAZolin 1,000 MG in SYRINGE 1 EACH IV SCH (19:11)
[2017-05-04] MEDS: INSULIN GLARGINE 100 UNIT/ML SUBCUT SCH (21:27)
[2017-05-05] MEDS: KETOROLAC 15 MG/1 ML VIAL IV SCH ×2 (04:52→12:05)
[2017-05-05 06:07] LABS: Basophils # 0.1 10*3/uL (0.0-0.2); Basophils % 0.8 % (0.0-0.8); Eosinophils # 0.3 10*3/uL (0.0-0.87); Eosinophils % 3.8 % (0.00-10.9); Hematocrit 28.1 VOL% (35.7-47.0); Hemoglobin 9.2 GM/DL (12.0-16.0); Immature Granulocytes % 0.4 %; Immature Granulocytes Absolute 0.03 #; Lymphocytes # 1.5 10*3/uL (1.4-4.0); Mean Corpuscular HGB Conc 32.7 GM/DL (32-36); Mean Corpuscular Hemoglobin 29 PG (27-34); Mean Corpuscular Volume 87.3 FL (87-102); Mean Platelet Volume 10.1 FL (9.6-12.0); Monocytes # 0.6 10*3/uL (0.11-0.8); Monocytes % 7.8 % (1.7-12.7); Neutrophils # 5.2 10*3/uL (1.4-7.4); Neutrophils % 67.2 % (38.7-73.9); Platelet Count 241 T/CUMM (130-400); Red Blood Count 3.22 MC/CUMM (3.8-5.5); Red Cell Distribution Width 14.6 % (9.3-17.3); White Blood Count 7.7 T/CUMM (4-12)
[2017-05-05] MEDS: LEVOTHYROXINE 100 MCG TABLET PO SCH (06:46)
[2017-05-05 06:51] LABS: Calcium 7.7 MG/DL (8.5-10.1); Osmolality,Calculated 288.8 MOS/KG (273-304); Potassium 3.6 MMOL/L (3.5-5.1)
[2017-05-05 07:01] LABS: Albumin 2.2 G/DL (3.4-5.0); Bilirubin,Total 0.8 MG/DL (0.2-1.0); Calcium 7.5 MG/DL (8.5-10.1); Free T4 (Free Thyroxine) 1.11 NG/DL (0.76-1.46); Osmolality,Calculated 288.8 MOS/KG (273-304); Potassium 3.4 MMOL/L (3.5-5.1); Thyroid Stimulating Hormone 0.87 uIU/ml (0.358-3.74); Total Protein 4.5 G/DL (6.4-8.3)
[2017-05-05] MEDS: INSULIN REGULAR 100 UNIT/ML SUBCUT SCH ×4 (08:19→20:32)
[2017-05-05] MEDS: FUROSEMIDE 40 MG TABLET PO SCH ×2 (09:33→20:31)
[2017-05-05] MEDS: CARVEDILOL 25 MG TABLET PO SCH ×2 (09:33→20:31)
[2017-05-05] MEDS: POTASSIUM CHLORIDE 20 MEQ TABLET PO SCH ×2 (09:33→20:31)
[2017-05-05] MEDS: ONDANSETRON 4 MG/2 ML VIAL IV PRN ×2 (09:47→20:39)
[2017-05-05] MEDS: INSULIN ASPART PROTAMINE/ASPART 70/30 100 UNIT/ML SUBCUT SCH ×2 (09:56→17:18)
[2017-05-05] MEDS: FONDAPARINUX 2.5 MG/0.5 ML SYRINGE SUBCUT SCH (09:56)
[2017-05-05] MEDS: DOCUSATE SODIUM 100 MG CAPSULE PO SCH ×2 (12:05→20:31)
[2017-05-05] MEDS: DIGOXIN 0.25 MG TABLET PO SCH (12:06)
[2017-05-05] MEDS: FLUoxetine 20 MG CAPSULE PO SCH (12:06)
[2017-05-05] MEDS: PANTOPRAZOLE 40 MG TABLET PO SCH (12:06)
[2017-05-05] MEDS: ATORVASTATIN 40 MG TABLET PO SCH (12:06)
[2017-05-05] MEDS: SOLIFENACIN 5 MG TABLET PO SCH (12:06)
[2017-05-05] MEDS: FENOFIBRATE 145 MG TABLET PO SCH (12:06)
[2017-05-05] MEDS: ceFAZolin 1,000 MG in SYRINGE 1 EACH IV SCH (12:24)
[2017-05-05] MEDS ORDERED: PROMETHAZINE 25 MG/1 ML VIAL IM ONE (12:24)
[2017-05-05] MEDS: MORPHINE 2 MG/1 ML SYRINGE IV PRN ×2 (13:17→23:54)
[2017-05-05] MEDS: POTASSIUM CHLORIDE INJ 40 MEQ in LACTATED RINGERS 1,000 ML IV SCH (15:12)
[2017-05-05] MEDS: INSULIN GLARGINE 100 UNIT/ML SUBCUT SCH (20:32)
[2017-05-06] MEDS: POTASSIUM CHLORIDE INJ 40 MEQ in LACTATED RINGERS 1,000 ML IV SCH ×2 (02:36→16:40)
[2017-05-06 06:14] LABS: Basophils % 0.5 % (0.0-0.8); Eosinophils # 0.2 10*3/uL (0.0-0.87); Hematocrit 28.7 VOL% (35.7-47.0); Hemoglobin 9.7 GM/DL (12.0-16.0); Immature Granulocytes % 0.5 %; Immature Granulocytes Absolute 0.04 #; Lymphocytes # 1.7 10*3/uL (1.4-4.0); Lymphocytes % 21.1 % (21.3-54.2); Mean Corpuscular HGB Conc 33.8 GM/DL (32-36); Mean Corpuscular Hemoglobin 29 PG (27-34); Mean Corpuscular Volume 85.7 FL (87-102); Mean Platelet Volume 9.8 FL (9.6-12.0); Monocytes # 0.5 10*3/uL (0.11-0.8); Monocytes % 5.8 % (1.7-12.7); Neutrophils # 5.5 10*3/uL (1.4-7.4); Neutrophils % 70.1 % (38.7-73.9); Platelet Count 259 T/CUMM (130-400); Red Blood Count 3.35 MC/CUMM (3.8-5.5); Red Cell Distribution Width 14.6 % (9.3-17.3); White Blood Count 7.8 T/CUMM (4-12)
[2017-05-06] MEDS: LEVOTHYROXINE 100 MCG TABLET PO SCH (06:18)
[2017-05-06 06:39] LABS: Potassium 3.8 MMOL/L (3.5-5.1)
[2017-05-06] MEDS: INSULIN ASPART PROTAMINE/ASPART 70/30 100 UNIT/ML SUBCUT SCH ×2 (12:44→17:52)
[2017-05-06] MEDS: INSULIN REGULAR 100 UNIT/ML SUBCUT SCH ×3 (12:44→20:41)
[2017-05-06] MEDS: SOLIFENACIN 5 MG TABLET PO SCH (13:23)
[2017-05-06] MEDS: FLUoxetine 20 MG CAPSULE PO SCH (13:24)
[2017-05-06] MEDS: PANTOPRAZOLE 40 MG TABLET PO SCH (13:24)
[2017-05-06] MEDS: FENOFIBRATE 145 MG TABLET PO SCH (13:24)
[2017-05-06] MEDS: FUROSEMIDE 40 MG TABLET PO SCH ×2 (13:24→20:45)
[2017-05-06] MEDS: MAGNESIUM CHLORIDE 64 MG TABLET PO SCH ×2 (13:24→20:45)
[2017-05-06] MEDS: POTASSIUM CHLORIDE 20 MEQ TABLET PO SCH ×2 (13:25→20:45)
[2017-05-06] MEDS: CARVEDILOL 25 MG TABLET PO SCH ×2 (13:26→20:45)
[2017-05-06] MEDS: ATORVASTATIN 40 MG TABLET PO SCH (13:26)
[2017-05-06] MEDS: DOCUSATE SODIUM 100 MG CAPSULE PO SCH ×2 (13:26→20:44)
[2017-05-06] MEDS: FONDAPARINUX 2.5 MG/0.5 ML SYRINGE SUBCUT SCH (13:28)
[2017-05-06] MEDS: DIGOXIN 0.25 MG TABLET PO SCH (13:29)
[2017-05-06] MEDS: INSULIN GLARGINE 100 UNIT/ML SUBCUT SCH (20:41)
[2017-05-07] MEDS: LEVOTHYROXINE 100 MCG TABLET PO SCH (06:05)
[2017-05-07] MEDS: MAGNESIUM HYDROXIDE SUSP 30 ML UDCUP PO PRN (06:09)
[2017-05-07 07:10] LABS: Hemoglobin A1C 7.4 % (4.2-6.3)
[2017-05-07 07:21] LABS: Osmolality,Calculated 286.1 MOS/KG (273-304); Potassium 4.1 MMOL/L (3.5-5.1)
[2017-05-07] MEDS: INSULIN REGULAR 100 UNIT/ML SUBCUT SCH ×4 (08:31→20:48)
[2017-05-07] MEDS: INSULIN ASPART PROTAMINE/ASPART 70/30 100 UNIT/ML SUBCUT SCH ×2 (08:33→18:02)
[2017-05-07] MEDS: FUROSEMIDE 40 MG TABLET PO SCH ×2 (09:00→20:52)
[2017-05-07] MEDS: DOCUSATE SODIUM 100 MG CAPSULE PO SCH ×2 (09:00→20:52)
[2017-05-07] MEDS: MAGNESIUM CHLORIDE 64 MG TABLET PO SCH ×2 (09:00→20:52)
[2017-05-07] MEDS: DIGOXIN 0.25 MG TABLET PO SCH (09:00)
[2017-05-07] MEDS: POTASSIUM CHLORIDE 20 MEQ TABLET PO SCH ×2 (09:00→20:52)
[2017-05-07] MEDS: CARVEDILOL 25 MG TABLET PO SCH ×2 (09:04→20:52)
[2017-05-07] MEDS: IRBESARTAN 150 MG TABLET PO SCH (09:05)
[2017-05-07] MEDS: FLUoxetine 20 MG CAPSULE PO SCH (16:01)
[2017-05-07] MEDS: PANTOPRAZOLE 40 MG TABLET PO SCH (16:01)
[2017-05-07] MEDS: ATORVASTATIN 40 MG TABLET PO SCH (16:01)
[2017-05-07] MEDS: FENOFIBRATE 145 MG TABLET PO SCH (16:01)
[2017-05-07] MEDS: SOLIFENACIN 5 MG TABLET PO SCH (16:02)
[2017-05-07] MEDS: FONDAPARINUX 2.5 MG/0.5 ML SYRINGE SUBCUT SCH (16:02)
[2017-05-07] MEDS ORDERED: TUBERCULIN SKIN TEST 0.1 ML SYRINGE INTRADERM ONE (16:37)
[2017-05-07] MEDS: INSULIN GLARGINE 100 UNIT/ML SUBCUT SCH (20:56)
[2017-05-08 02:47] LABS: Basophils # 0.1 10*3/uL (0.0-0.2); Eosinophils # 0.4 10*3/uL (0.0-0.87); Eosinophils % 5.2 % (0.00-10.9); Hematocrit 25.7 VOL% (35.7-47.0); Hemoglobin 8.5 GM/DL (12.0-16.0); Immature Granulocytes % 0.3 %; Immature Granulocytes Absolute 0.02 #; Lymphocytes # 1.7 10*3/uL (1.4-4.0); Lymphocytes % 25.5 % (21.3-54.2); Mean Corpuscular HGB Conc 33.1 GM/DL (32-36); Mean Corpuscular Hemoglobin 29 PG (27-34); Mean Corpuscular Volume 86.8 FL (87-102); Mean Platelet Volume 9.4 FL (9.6-12.0); Monocytes # 0.6 10*3/uL (0.11-0.8); Monocytes % 8.8 % (1.7-12.7); Neutrophils % 59.2 % (38.7-73.9); Platelet Count 313 T/CUMM (130-400); Red Blood Count 2.96 MC/CUMM (3.8-5.5); Red Cell Distribution Width 14.6 % (9.3-17.3); White Blood Count 6.8 T/CUMM (4-12)
[2017-05-08 04:55] LABS: Osmolality,Calculated 284.3 MOS/KG (273-304); Potassium 4.5 MMOL/L (3.5-5.1)
[2017-05-08] MEDS: LEVOTHYROXINE 100 MCG TABLET PO SCH (06:17)
[2017-05-08] MEDS: INSULIN REGULAR 100 UNIT/ML SUBCUT SCH ×4 (08:32→21:03)
[2017-05-08] MEDS: INSULIN ASPART PROTAMINE/ASPART 70/30 100 UNIT/ML SUBCUT SCH ×2 (08:32→16:30)
[2017-05-08] MEDS: FONDAPARINUX 2.5 MG/0.5 ML SYRINGE SUBCUT SCH (08:33)
[2017-05-08] MEDS: IRBESARTAN 150 MG TABLET PO SCH (08:33)
[2017-05-08] MEDS: POTASSIUM CHLORIDE 20 MEQ TABLET PO SCH ×2 (08:34→21:02)
[2017-05-08] MEDS: FUROSEMIDE 40 MG TABLET PO SCH ×2 (08:34→21:02)
[2017-05-08] MEDS: CARVEDILOL 25 MG TABLET PO SCH ×2 (08:34→21:02)
[2017-05-08] MEDS: FENOFIBRATE 145 MG TABLET PO SCH (08:35)
[2017-05-08] MEDS: PANTOPRAZOLE 40 MG TABLET PO SCH (08:35)
[2017-05-08] MEDS: ATORVASTATIN 40 MG TABLET PO SCH (08:35)
[2017-05-08] MEDS: SOLIFENACIN 5 MG TABLET PO SCH (08:35)
[2017-05-08] MEDS: MAGNESIUM CHLORIDE 64 MG TABLET PO SCH ×2 (08:35→21:02)
[2017-05-08] MEDS: FLUoxetine 20 MG CAPSULE PO SCH (08:35)
[2017-05-08] MEDS: DOCUSATE SODIUM 100 MG CAPSULE PO SCH ×2 (08:41→21:02)
[2017-05-08] MEDS: DIGOXIN 0.25 MG TABLET PO SCH (13:23)
[2017-05-08] MEDS: INSULIN GLARGINE 100 UNIT/ML SUBCUT SCH (21:03)
[2017-05-09] MEDS: LEVOTHYROXINE 100 MCG TABLET PO SCH (06:25)
[2017-05-09] MEDS: INSULIN REGULAR 100 UNIT/ML SUBCUT SCH ×4 (08:00→20:53)
[2017-05-09] MEDS: INSULIN ASPART PROTAMINE/ASPART 70/30 100 UNIT/ML SUBCUT SCH ×2 (08:00→16:30)
[2017-05-09] MEDS: FONDAPARINUX 2.5 MG/0.5 ML SYRINGE SUBCUT SCH (09:00)
[2017-05-09] MEDS: IRBESARTAN 150 MG TABLET PO SCH (09:01)
[2017-05-09] MEDS: DOCUSATE SODIUM 100 MG CAPSULE PO SCH ×2 (09:01→20:52)
[2017-05-09] MEDS: DIGOXIN 0.25 MG TABLET PO SCH (09:02)
[2017-05-09] MEDS: FUROSEMIDE 40 MG TABLET PO SCH ×2 (09:02→20:52)
[2017-05-09] MEDS: POTASSIUM CHLORIDE 20 MEQ TABLET PO SCH ×2 (09:02→20:52)
[2017-05-09] MEDS: CARVEDILOL 25 MG TABLET PO SCH ×2 (09:02→20:52)
[2017-05-09] MEDS: MAGNESIUM CHLORIDE 64 MG TABLET PO SCH ×2 (09:03→20:52)
[2017-05-09] MEDS: ATORVASTATIN 40 MG TABLET PO SCH (09:03)
[2017-05-09] MEDS: FENOFIBRATE 145 MG TABLET PO SCH (09:03)
[2017-05-09] MEDS: PANTOPRAZOLE 40 MG TABLET PO SCH (09:03)
[2017-05-09] MEDS: SOLIFENACIN 5 MG TABLET PO SCH (09:03)
[2017-05-09] MEDS: FLUoxetine 20 MG CAPSULE PO SCH (09:03)
[2017-05-09] MEDS: INSULIN GLARGINE 100 UNIT/ML SUBCUT SCH (20:53)
[2017-05-10] MEDS: MAGNESIUM HYDROXIDE SUSP 30 ML UDCUP PO PRN (06:04)
[2017-05-10] MEDS: LEVOTHYROXINE 100 MCG TABLET PO SCH (06:04)
[2017-05-10 06:13] LABS: Basophils # 0.1 10*3/uL (0.0-0.2); Basophils % 1.1 % (0.0-0.8); Eosinophils # 0.3 10*3/uL (0.0-0.87); Eosinophils % 5.9 % (0.00-10.9); Hematocrit 29.7 VOL% (35.7-47.0); Hemoglobin 9.8 GM/DL (12.0-16.0); Immature Granulocytes % 0.2 %; Immature Granulocytes Absolute 0.01 #; Lymphocytes # 1.3 10*3/uL (1.4-4.0); Lymphocytes % 25.6 % (21.3-54.2); Mean Corpuscular Hemoglobin 29 PG (27-34); Mean Corpuscular Volume 86.8 FL (87-102); Mean Platelet Volume 9.1 FL (9.6-12.0); Monocytes # 0.5 10*3/uL (0.11-0.8); Monocytes % 10.1 % (1.7-12.7); Neutrophils % 57.1 % (38.7-73.9); Platelet Count 413 T/CUMM (130-400); Red Blood Count 3.42 MC/CUMM (3.8-5.5); Red Cell Distribution Width 14.6 % (9.3-17.3); White Blood Count 5.2 T/CUMM (4-12)
[2017-05-10] MEDS: INSULIN REGULAR 100 UNIT/ML SUBCUT SCH ×4 (07:48→21:01)
[2017-05-10] MEDS: INSULIN ASPART PROTAMINE/ASPART 70/30 100 UNIT/ML SUBCUT SCH ×2 (07:48→16:36)
[2017-05-10] MEDS: FONDAPARINUX 2.5 MG/0.5 ML SYRINGE SUBCUT SCH (08:18)
[2017-05-10] MEDS: DIGOXIN 0.25 MG TABLET PO SCH (08:19)
[2017-05-10] MEDS: FENOFIBRATE 145 MG TABLET PO SCH (08:19)
[2017-05-10] MEDS: MAGNESIUM CHLORIDE 64 MG TABLET PO SCH ×2 (08:19→21:58)
[2017-05-10] MEDS: FUROSEMIDE 40 MG TABLET PO SCH ×2 (08:19→21:58)
[2017-05-10] MEDS: SOLIFENACIN 5 MG TABLET PO SCH (08:20)
[2017-05-10] MEDS: POTASSIUM CHLORIDE 20 MEQ TABLET PO SCH ×2 (08:21→21:58)
[2017-05-10] MEDS: ATORVASTATIN 40 MG TABLET PO SCH (08:21)
[2017-05-10] MEDS: FLUoxetine 20 MG CAPSULE PO SCH (08:21)
[2017-05-10] MEDS: IRBESARTAN 150 MG TABLET PO SCH (08:21)
[2017-05-10] MEDS: CARVEDILOL 25 MG TABLET PO SCH ×2 (08:21→21:58)
[2017-05-10] MEDS: DOCUSATE SODIUM 100 MG CAPSULE PO SCH ×2 (08:21→21:58)
[2017-05-10] MEDS: PANTOPRAZOLE 40 MG TABLET PO SCH (08:21)
[2017-05-10] MEDS: INSULIN GLARGINE 100 UNIT/ML SUBCUT SCH (21:01)
[2017-05-11] MEDS: LEVOTHYROXINE 100 MCG TABLET PO SCH (06:34)
[2017-05-11] MEDS: INSULIN REGULAR 100 UNIT/ML SUBCUT SCH ×4 (07:11→21:40)
[2017-05-11] MEDS: INSULIN ASPART PROTAMINE/ASPART 70/30 100 UNIT/ML SUBCUT SCH ×2 (07:12→17:19)
[2017-05-11] MEDS: MAGNESIUM CHLORIDE 64 MG TABLET PO SCH ×2 (10:24→21:39)
[2017-05-11] MEDS: DIGOXIN 0.25 MG TABLET PO SCH (10:24)
[2017-05-11] MEDS: IRBESARTAN 150 MG TABLET PO SCH (10:24)
[2017-05-11] MEDS: ATORVASTATIN 40 MG TABLET PO SCH (10:25)
[2017-05-11] MEDS: POTASSIUM CHLORIDE 20 MEQ TABLET PO SCH ×2 (10:25→21:38)
[2017-05-11] MEDS: SOLIFENACIN 5 MG TABLET PO SCH (10:25)
[2017-05-11] MEDS: CARVEDILOL 25 MG TABLET PO SCH ×2 (10:25→21:39)
[2017-05-11] MEDS: DOCUSATE SODIUM 100 MG CAPSULE PO SCH ×2 (10:25→21:40)
[2017-05-11] MEDS: FENOFIBRATE 145 MG TABLET PO SCH (10:25)
[2017-05-11] MEDS: FLUoxetine 20 MG CAPSULE PO SCH (10:26)
[2017-05-11] MEDS: PANTOPRAZOLE 40 MG TABLET PO SCH (10:26)
[2017-05-11] MEDS: FUROSEMIDE 40 MG TABLET PO SCH ×2 (10:26→21:40)
[2017-05-11] MEDS: FONDAPARINUX 2.5 MG/0.5 ML SYRINGE SUBCUT SCH (17:22)
[2017-05-11] MEDS: INSULIN GLARGINE 100 UNIT/ML SUBCUT SCH (21:41)
[2017-05-12] MEDS: LEVOTHYROXINE 100 MCG TABLET PO SCH (06:10)
[2017-05-12 06:23] LABS: Basophils # 0.1 10*3/uL (0.0-0.2); Basophils % 1.3 % (0.0-0.8); Eosinophils # 0.3 10*3/uL (0.0-0.87); Eosinophils % 5.9 % (0.00-10.9); Hematocrit 30.3 VOL% (35.7-47.0); Hemoglobin 9.4 GM/DL (12.0-16.0); Immature Granulocytes % 0.4 %; Immature Granulocytes Absolute 0.02 #; Lymphocytes # 1.6 10*3/uL (1.4-4.0); Lymphocytes % 29.9 % (21.3-54.2); Mean Corpuscular Hemoglobin 28 PG (27-34); Mean Corpuscular Volume 90.2 FL (87-102); Monocytes # 0.5 10*3/uL (0.11-0.8); Monocytes % 8.5 % (1.7-12.7); Neutrophils # 2.9 10*3/uL (1.4-7.4); Platelet Count 418 T/CUMM (130-400); Red Blood Count 3.36 MC/CUMM (3.8-5.5); Red Cell Distribution Width 14.9 % (9.3-17.3); White Blood Count 5.4 T/CUMM (4-12)
[2017-05-12 07:04] LABS: Albumin 2.3 G/DL (3.4-5.0); Bilirubin,Total 0.4 MG/DL (0.2-1.0); Calcium 8.7 MG/DL (8.5-10.1); Osmolality,Calculated 287.3 MOS/KG (273-304); Potassium 4.7 MMOL/L (3.5-5.1); Total Protein 5.4 G/DL (6.4-8.3)
[2017-05-12] MEDS: INSULIN REGULAR 100 UNIT/ML SUBCUT SCH ×2 (08:27→13:41)
[2017-05-12] MEDS ORDERED: ASPIRIN 325 MG TABLET PO SCH (09:00)
[2017-05-12] MEDS: INSULIN ASPART PROTAMINE/ASPART 70/30 100 UNIT/ML SUBCUT SCH (10:41)
[2017-05-12] MEDS: CARVEDILOL 25 MG TABLET PO SCH (10:42)
[2017-05-12] MEDS: DOCUSATE SODIUM 100 MG CAPSULE PO SCH (10:42)
[2017-05-12] MEDS: IRBESARTAN 150 MG TABLET PO SCH (10:42)
[2017-05-12] MEDS: POTASSIUM CHLORIDE 20 MEQ TABLET PO SCH (10:42)
[2017-05-12] MEDS: FUROSEMIDE 40 MG TABLET PO SCH (10:42)
[2017-05-12] MEDS: MAGNESIUM CHLORIDE 64 MG TABLET PO SCH (10:43)
[2017-05-12] MEDS: PANTOPRAZOLE 40 MG TABLET PO SCH (10:43)
[2017-05-12] MEDS: ATORVASTATIN 40 MG TABLET PO SCH (10:43)
[2017-05-12] MEDS: FLUoxetine 20 MG CAPSULE PO SCH (10:43)
[2017-05-12] MEDS: SOLIFENACIN 5 MG TABLET PO SCH (10:43)
[2017-05-12] MEDS: FENOFIBRATE 145 MG TABLET PO SCH (10:43)
[2017-05-12 11:22] VITALS: BP 141/72
== END 2017-05-12 16:05 | disposition swing bed (61) | DRG 481 ==
LOC: EDUNIT# → EDBD → N.ED 18:30 → N.EDINP 21:13 → N.3E 22:19
PROVIDERS: ADMIT Family Medicine; ATTEND Family Medicine

== ENCOUNTER 2017-06-21 12:45 | Inpatient (IN) ==
[2017-06-21] MEDS ORDERED: MAGNESIUM HYDROXIDE SUSP 30 ML UDCUP PO PRN (13:06)
[2017-06-21] MEDS ORDERED: ONDANSETRON 4 MG/2 ML VIAL IV PRN (13:06)
[2017-06-21] MEDS ORDERED: DEXTROSE 50% 25 GM/50 ML VIAL IV PRN (13:06)
[2017-06-21] MEDS ORDERED: GLUCAGON 1 MG VIAL IM PRN (13:06)
[2017-06-21] MEDS ORDERED: ACETAMINOPHEN 325 MG TABLET PO PRN (13:06)
[2017-06-21] MEDS: SODIUM CHLORIDE 0.9% 1,000 ML IV SCH (15:09)
[2017-06-21] MEDS: PANTOPRAZOLE 40 MG VIAL IV SCH (15:09)
[2017-06-21 15:26] LABS: Basophils # 0.1 10*3/uL (0.0-0.2); Eosinophils # 0.1 10*3/uL (0.0-0.87); Eosinophils % 1.5 % (0.00-10.9); Hematocrit 36.9 VOL% (35.7-47.0); Hemoglobin 12.3 GM/DL (12.0-16.0); Immature Granulocytes % 0.8 %; Immature Granulocytes Absolute 0.06 #; Lymphocytes # 1.8 10*3/uL (1.4-4.0); Lymphocytes % 25.5 % (21.3-54.2); Mean Corpuscular HGB Conc 33.3 GM/DL (32-36); Mean Corpuscular Hemoglobin 28 PG (27-34); Mean Corpuscular Volume 85.2 FL (87-102); Mean Platelet Volume 9.7 FL (9.6-12.0); Monocytes # 0.4 10*3/uL (0.11-0.8); Neutrophils # 4.6 10*3/uL (1.4-7.4); Neutrophils % 65.2 % (38.7-73.9); Platelet Count 347 T/CUMM (130-400); Red Blood Count 4.33 MC/CUMM (3.8-5.5); Red Cell Distribution Width 15.2 % (9.3-17.3); White Blood Count 7.1 T/CUMM (4-12)
[2017-06-21 15:37] LABS: Albumin 3.2 G/DL (3.4-5.0); Bilirubin,Total 0.8 MG/DL (0.2-1.0); Calcium 8.5 MG/DL (8.5-10.1); Osmolality,Calculated 289.5 MOS/KG (273-304); Potassium 3.3 MMOL/L (3.5-5.1); Total Protein 6.4 G/DL (6.4-8.3)
[2017-06-21] MEDS: INSULIN REGULAR 100 UNIT/ML SUBCUT SCH (16:16)
[2017-06-21] MEDS ORDERED: ALPRAZolam 0.5 MG TABLET PO PRN (17:18)
[2017-06-21 19:13] LABS: Apearance,Urine CLEAR (Clear); Bilirubin,Urine Negative (Negative); Blood, Urine Negative (Negative); Glucose,Urine (UA) 50 mg/dL (Negative); Ketones,Urine 5 mg/dL (Negative); Nitrite,Urine Negative (Negative); Protein,Urine >=500 MG/DL; Squamous Epithelial Cell,Urine Occasional /HPF (0-10); Urine Color Yellow (Yellow); Urine Urobilinogen < 2.0 EU/DL (0.2-1.0); WBC,Urine <1 /HPF (0-6)
[2017-06-21] MEDS: CARVEDILOL 25 MG TABLET PO SCH (21:22)
[2017-06-21] MEDS: traZODone 50 MG TABLET PO SCH (22:25)
[2017-06-22] MEDS: INSULIN REGULAR 100 UNIT/ML SUBCUT SCH ×5 (01:37→21:00)
[2017-06-22] MEDS: SODIUM CHLORIDE 0.9% 1,000 ML IV SCH ×3 (01:38→23:22)
[2017-06-22 06:32] LABS: Risk Ratio 6.26; VLDL CHOLESTEROL 57.2 MG/DL
[2017-06-22 07:36] LABS: Calcium 7.7 MG/DL (8.5-10.1); Osmolality,Calculated 293.8 MOS/KG (273-304); Potassium 3.9 MMOL/L (3.5-5.1)
[2017-06-22] MEDS ORDERED: traZODone 50 MG TABLET PO PRN (08:01)
[2017-06-22] MEDS: ATORVASTATIN 40 MG TABLET PO SCH (08:38)
[2017-06-22] MEDS: CARVEDILOL 25 MG TABLET PO SCH ×2 (08:38→20:55)
[2017-06-22] MEDS: LEVOTHYROXINE 125 MCG TABLET PO SCH (08:38)
[2017-06-22] MEDS: FENOFIBRATE 145 MG TABLET PO SCH (08:39)
[2017-06-22] MEDS: FUROSEMIDE 40 MG TABLET PO SCH ×2 (08:39→16:04)
[2017-06-22] MEDS: SOLIFENACIN 5 MG TABLET PO SCH (08:39)
[2017-06-22] MEDS: FELODIPINE 5 MG TABLET PO SCH (08:39)
[2017-06-22] MEDS: FLUoxetine 20 MG CAPSULE PO SCH (08:39)
[2017-06-22] MEDS ORDERED: [UNRECOGNIZED DRUG - OTHER] PO SCH (09:00)
[2017-06-22] MEDS: PANTOPRAZOLE 40 MG VIAL IV SCH (09:10)
[2017-06-22] MEDS: DIGOXIN 0.25 MG TABLET PO SCH (12:45)
[2017-06-22] MEDS: FAT EMULSION 20% 250 ML IV SCH (15:50)
[2017-06-22] MEDS ORDERED: TRACE ELEMENTS (5) 1 ML, MULTIVITAMIN INJ 10 ML in AMINO ACIDS/DEXT/LYTES 4.25-5% 2,000 ML IV SCH (17:00)
[2017-06-22] MEDS ORDERED: DEXTROSE 10% 1,000 ML IV PRN (17:00)
[2017-06-22] MEDS: traZODone 50 MG TABLET PO SCH (20:56)
[2017-06-23] MEDS: SODIUM CHLORIDE 0.9% 1,000 ML IV SCH ×2 (02:37→14:37)
[2017-06-23 05:36] LABS: Basophils % 0.8 % (0.0-0.8); Eosinophils # 0.1 10*3/uL (0.0-0.87); Eosinophils % 2.1 % (0.00-10.9); Hematocrit 30.5 VOL% (35.7-47.0); Hemoglobin 10.3 GM/DL (12.0-16.0); Immature Granulocytes % 0.4 %; Immature Granulocytes Absolute 0.02 #; Lymphocytes # 1.4 10*3/uL (1.4-4.0); Lymphocytes % 27.4 % (21.3-54.2); Mean Corpuscular HGB Conc 33.8 GM/DL (32-36); Mean Corpuscular Hemoglobin 29 PG (27-34); Mean Corpuscular Volume 85.7 FL (87-102); Mean Platelet Volume 9.6 FL (9.6-12.0); Monocytes # 0.5 10*3/uL (0.11-0.8); Monocytes % 9.1 % (1.7-12.7); Neutrophils # 3.1 10*3/uL (1.4-7.4); Neutrophils % 60.2 % (38.7-73.9); Platelet Count 224 T/CUMM (130-400); Red Blood Count 3.56 MC/CUMM (3.8-5.5); Red Cell Distribution Width 14.9 % (9.3-17.3); White Blood Count 5.1 T/CUMM (4-12)
[2017-06-23] MEDS: LEVOTHYROXINE 125 MCG TABLET PO SCH (06:02)
[2017-06-23 06:11] LABS: Prealbumin 14.2 MG/DL (20-40)
[2017-06-23 06:29] LABS: Albumin 2.5 G/DL (3.4-5.0); Bilirubin,Total 0.7 MG/DL (0.2-1.0); Ferritin 208.1 ng/ml (8-252); Free T4 (Free Thyroxine) 1.33 NG/DL (0.76-1.46); Osmolality,Calculated 290.4 MOS/KG (273-304); Potassium 3.6 MMOL/L (3.5-5.1); Thyroid Stimulating Hormone 0.142 uIU/ml (0.358-3.74); Total Protein 4.7 G/DL (6.4-8.3)
[2017-06-23 07:55] LABS: Sedimentation Rate-Westergren 10 MM/HR (0-30)
[2017-06-23] MEDS: FLUoxetine 20 MG CAPSULE PO SCH (08:50)
[2017-06-23] MEDS: PANTOPRAZOLE 40 MG VIAL IV SCH (08:50)
[2017-06-23] MEDS: ATORVASTATIN 40 MG TABLET PO SCH (08:50)
[2017-06-23] MEDS: FELODIPINE 5 MG TABLET PO SCH (08:50)
[2017-06-23] MEDS: FENOFIBRATE 145 MG TABLET PO SCH (08:50)
[2017-06-23] MEDS: SOLIFENACIN 5 MG TABLET PO SCH (08:50)
[2017-06-23] MEDS: FUROSEMIDE 40 MG TABLET PO SCH ×2 (08:50→16:20)
[2017-06-23] MEDS: MAGNESIUM CHLORIDE 64 MG TABLET PO SCH ×2 (08:50→21:25)
[2017-06-23] MEDS: CARVEDILOL 25 MG TABLET PO SCH ×2 (08:50→21:25)
[2017-06-23] MEDS: INSULIN REGULAR 100 UNIT/ML SUBCUT SCH ×4 (09:17→21:24)
[2017-06-23] MEDS ORDERED: PROPOFOL 200 MG/20 ML VIAL IV ONE (12:12)
[2017-06-23] MEDS ORDERED: LIDOCAINE 2% 5 ML VIAL ONE (12:12)
[2017-06-23] MEDS: DIGOXIN 0.25 MG TABLET PO SCH (14:36)
[2017-06-23] MEDS: FAT EMULSION 20% 250 ML IV SCH (14:42)
[2017-06-23] MEDS: TRACE ELEMENTS (5) 1 ML, MULTIVITAMIN INJ 10 ML, INSULIN REGULAR 10 UNIT in AMINO ACIDS... IV SCH (16:20)
[2017-06-23] MEDS: traZODone 50 MG TABLET PO SCH (21:25)
[2017-06-24 04:49] LABS: Basophils % 0.7 % (0.0-0.8); Eosinophils # 0.1 10*3/uL (0.0-0.87); Eosinophils % 2.6 % (0.00-10.9); Hematocrit 29.4 VOL% (35.7-47.0); Hemoglobin 10.2 GM/DL (12.0-16.0); Immature Granulocytes % 0.4 %; Immature Granulocytes Absolute 0.02 #; Lymphocytes # 1.6 10*3/uL (1.4-4.0); Lymphocytes % 29.7 % (21.3-54.2); Mean Corpuscular HGB Conc 34.7 GM/DL (32-36); Mean Corpuscular Hemoglobin 29 PG (27-34); Mean Corpuscular Volume 83.1 FL (87-102); Mean Platelet Volume 9.8 FL (9.6-12.0); Monocytes # 0.5 10*3/uL (0.11-0.8); Monocytes % 8.9 % (1.7-12.7); Neutrophils # 3.2 10*3/uL (1.4-7.4); Neutrophils % 57.7 % (38.7-73.9); Platelet Count 197 T/CUMM (130-400); Red Blood Count 3.54 MC/CUMM (3.8-5.5); Red Cell Distribution Width 14.9 % (9.3-17.3); White Blood Count 5.5 T/CUMM (4-12)
[2017-06-24 05:16] LABS: Calcium 8.3 MG/DL (8.5-10.1); Osmolality,Calculated 298.8 MOS/KG (273-304); Potassium 3.6 MMOL/L (3.5-5.1)
[2017-06-24] MEDS ORDERED: cefOXitin 2,000 MG in SYRINGE 1 EACH IV ONE (07:00)
[2017-06-24] MEDS ORDERED: TISSUE ADHESIVE 1 EACH APPLICATOR TOP ONE (07:08)
[2017-06-24] MEDS ORDERED: LIDOCAINE 1%/EPI INJ 20 ML VIAL ONE (07:08)
[2017-06-24] MEDS ORDERED: BUPIVACAINE MPF 0.25% /EPI 30 ML VIAL ONE (07:08)
[2017-06-24] MEDS: LEVOTHYROXINE 125 MCG TABLET PO SCH (08:16)
[2017-06-24] MEDS: SODIUM CHLORIDE 0.9% 1,000 ML IV SCH (08:16)
[2017-06-24] MEDS: INSULIN REGULAR 100 UNIT/ML SUBCUT SCH ×4 (08:32→20:48)
[2017-06-24] MEDS: PANTOPRAZOLE 40 MG VIAL IV SCH (08:48)
[2017-06-24] MEDS: CARVEDILOL 25 MG TABLET PO SCH ×2 (08:48→21:02)
[2017-06-24] MEDS ORDERED: LACTATED RINGERS 1,000 ML IV SCH (09:30)
[2017-06-24] MEDS ORDERED: INSULIN REGULAR 100 UNIT/ML ONE (10:22)
[2017-06-24] MEDS: INSULIN REGULAR 100 UNIT/ML IV ONE ×2 (10:25→10:42)
[2017-06-24] MEDS ORDERED: PROPOFOL 200 MG/20 ML VIAL IV ONE (10:26)
[2017-06-24] MEDS ORDERED: MIDAZOLAM 2 MG/2 ML VIAL ONE (10:27)
[2017-06-24] MEDS ORDERED: ONDANSETRON 4 MG/2 ML VIAL ONE ×2 (10:27→10:37)
[2017-06-24] MEDS ORDERED: fentaNYL 100 MCG/2 ML VIAL ONE (10:27)
[2017-06-24] MEDS ORDERED: ALBUMIN 5% 12.5 GM/250 ML VIAL IV ONE (10:27)
[2017-06-24] MEDS ORDERED: SEVOFLURANE 1 UNIT/15 MINUTE INH ONE (10:27)
[2017-06-24] MEDS ORDERED: GLYCOPYRROLATE 0.4 MG/2 ML VIAL ONE (10:28)
[2017-06-24] MEDS ORDERED: ROCURONIUM 100 MG/10 ML VIAL IV ONE (10:28)
[2017-06-24] MEDS ORDERED: NEOSTIGMINE 10 MG/10 ML VIAL ONE (10:28)
[2017-06-24] MEDS ORDERED: PHENYLEPHRINE 1 MG/10 ML SYRINGE IV ONE (10:28)
[2017-06-24] MEDS ORDERED: ACETAMINOPHEN 1,000 MG/100 ML VIAL IV ONE (10:28)
[2017-06-24] MEDS ORDERED: HYDROmorphone 2 MG/1 ML VIAL ONE (10:37)
[2017-06-24] MEDS ORDERED: HYDROmorphone 2 MG/1 ML VIAL IV PRN (10:41)
[2017-06-24] MEDS ORDERED: ONDANSETRON 4 MG/2 ML VIAL IV PRN (10:41)
[2017-06-24] MEDS: SOLIFENACIN 5 MG TABLET PO SCH (11:35)
[2017-06-24] MEDS: FELODIPINE 5 MG TABLET PO SCH (11:35)
[2017-06-24] MEDS: FUROSEMIDE 40 MG TABLET PO SCH ×2 (11:36→15:57)
[2017-06-24] MEDS: FENOFIBRATE 145 MG TABLET PO SCH (11:36)
[2017-06-24] MEDS: ATORVASTATIN 40 MG TABLET PO SCH (11:36)
[2017-06-24] MEDS: FLUoxetine 20 MG CAPSULE PO SCH (11:36)
[2017-06-24] MEDS: MAGNESIUM CHLORIDE 64 MG TABLET PO SCH ×2 (11:45→20:48)
[2017-06-24] MEDS ORDERED: FUROSEMIDE 40 MG/4 ML VIAL IV ONE (12:13)
[2017-06-24] MEDS ORDERED: FUROSEMIDE 20 MG/2 ML VIAL IV ONE (12:13)
[2017-06-24] MEDS ORDERED: FUROSEMIDE 20 MG/2 ML VIAL ONE (12:15)
[2017-06-24] MEDS ORDERED: DIGOXIN 0.25 MG TABLET PO SCH (13:00)
[2017-06-24] MEDS: FAT EMULSION 20% 250 ML IV SCH (14:34)
[2017-06-24] MEDS: TRACE ELEMENTS (5) 1 ML, MULTIVITAMIN INJ 10 ML, INSULIN REGULAR 10 UNIT in AMINO ACIDS... IV SCH (16:07)
[2017-06-24] MEDS ORDERED: SODIUM CHLORIDE 0.45% 1,000 ML IV SCH ×2 (19:08→19:30)
[2017-06-24] MEDS: traZODone 50 MG TABLET PO SCH (20:48)
[2017-06-25] MEDS: LEVOTHYROXINE 125 MCG TABLET PO SCH (06:03)
[2017-06-25 07:07] LABS: Basophils % 0.5 % (0.0-0.8); Eosinophils # 0.2 10*3/uL (0.0-0.87); Eosinophils % 2.8 % (0.00-10.9); Hematocrit 27.3 VOL% (35.7-47.0); Hemoglobin 9.4 GM/DL (12.0-16.0); Immature Granulocytes % 0.2 %; Immature Granulocytes Absolute 0.01 #; Lymphocytes # 1.3 10*3/uL (1.4-4.0); Lymphocytes % 21.5 % (21.3-54.2); Mean Corpuscular HGB Conc 34.4 GM/DL (32-36); Mean Corpuscular Hemoglobin 29 PG (27-34); Mean Platelet Volume 10.6 FL (9.6-12.0); Monocytes # 0.4 10*3/uL (0.11-0.8); Monocytes % 7.2 % (1.7-12.7); Neutrophils # 4.1 10*3/uL (1.4-7.4); Neutrophils % 67.8 % (38.7-73.9); Platelet Count 184 T/CUMM (130-400); Red Blood Count 3.25 MC/CUMM (3.8-5.5); Red Cell Distribution Width 15.7 % (9.3-17.3); White Blood Count 6.1 T/CUMM (4-12)
[2017-06-25 07:43] LABS: Osmolality,Calculated 287.3 MOS/KG (273-304); Potassium 3.4 MMOL/L (3.5-5.1)
[2017-06-25 07:49] LABS: Albumin 2.7 G/DL (3.4-5.0); Bilirubin,Total 0.8 MG/DL (0.2-1.0); Calcium 7.9 MG/DL (8.5-10.1); Osmolality,Calculated 290.1 MOS/KG (273-304); Potassium 3.2 MMOL/L (3.5-5.1); Total Protein 5.1 G/DL (6.4-8.3)
[2017-06-25] MEDS: INSULIN REGULAR 100 UNIT/ML SUBCUT SCH ×2 (08:58→12:54)
[2017-06-25] MEDS: PANTOPRAZOLE 40 MG VIAL IV SCH (09:00)
[2017-06-25] MEDS: FELODIPINE 5 MG TABLET PO SCH (09:00)
[2017-06-25] MEDS: CARVEDILOL 25 MG TABLET PO SCH (09:01)
[2017-06-25] MEDS: FLUoxetine 20 MG CAPSULE PO SCH (09:01)
[2017-06-25] MEDS: FUROSEMIDE 40 MG TABLET PO SCH (09:02)
[2017-06-25] MEDS: SOLIFENACIN 5 MG TABLET PO SCH (09:02)
[2017-06-25] MEDS: MAGNESIUM CHLORIDE 64 MG TABLET PO SCH (09:03)
[2017-06-25] MEDS: ATORVASTATIN 40 MG TABLET PO SCH (09:03)
[2017-06-25] MEDS: FENOFIBRATE 145 MG TABLET PO SCH (09:03)
[2017-06-25] MEDS ORDERED: POTASSIUM CHLORIDE 10 MEQ TABLET PO SCH (11:00)
[2017-06-25] MEDS ORDERED: SODIUM CHLOR 0.45% KCL 20 MEQ 20 MEQ/1,000 ML BAG IV SCH (11:00)
[2017-06-25 12:24] VITALS: BP 141/67
[2017-06-25] MEDS: DIGOXIN 0.25 MG TABLET PO SCH (12:52)
== END 2017-06-25 13:57 | disposition home health service (06) | DRG 418 ==
LOC: N.2E 13:48
PROVIDERS: ADMIT Family Medicine; ATTEND Family Medicine
PROC: LAPCHOL (2017-06-24 09:15)

== ENCOUNTER 2017-12-17 16:27 | Inpatient (IN) ==
[2017-12-17 17:48] LABS: Basophils % 0.2 % (0.0-0.8); Hematocrit 31.5 VOL% (35.7-47.0); Hemoglobin 10.5 GM/DL (12.0-16.0); Immature Granulocytes % 0.5 %; Immature Granulocytes Absolute 0.06 #; Lymphocytes # 1.3 10*3/uL (1.4-4.0); Lymphocytes % 11.6 % (21.3-54.2); Mean Corpuscular HGB Conc 33.3 GM/DL (32-36); Mean Corpuscular Hemoglobin 30 PG (27-34); Mean Corpuscular Volume 90.5 FL (87-102); Monocytes # 0.6 10*3/uL (0.11-0.8); Neutrophils # 9.2 10*3/uL (1.4-7.4); Neutrophils % 82.7 % (38.7-73.9); Platelet Count 437 T/CUMM (130-400); Red Blood Count 3.48 MC/CUMM (3.8-5.5); Red Cell Distribution Width 14.1 % (9.3-17.3); White Blood Count 11.1 T/CUMM (4-12)
[2017-12-17 17:59] LABS: INR 1.1; PT Patient Result 11.6 SECS; Partial Thromboplastin Time 21.5 SECS (0-40)
[2017-12-17 18:02] LABS: Ammonia < 10 UMOL/L (11-32)
[2017-12-17 18:13] LABS: Alanine Aminotransferase 35 U/L (13-56); Albumin 3.2 G/DL (3.4-5.0); Alkaline Phosphatase 59 U/L (45-117); Aspartate Amino Transferase 97 U/L (0-37); Blood Urea Nitrogen 42 MG/DL (7-18); Calcium 8.6 MG/DL (8.5-10.1); Free T4 (Free Thyroxine) 1.09 NG/DL (0.76-1.46); Glucose 260 MG/DL (74-106); Osmolality,Calculated 298.4 MOS/KG (273-304); Potassium 3.7 MMOL/L (3.5-5.1); Sodium 140 MMOL/L (136-145); Total Protein 6.7 G/DL (6.4-8.3)
[2017-12-17] MEDS ORDERED: SODIUM CHLORIDE 0.9% 1,000 ML IV STA (18:27)
[2017-12-17 18:53] LABS: Apearance,Urine Slightly Hazy (Clear); Bacteria,Urine Many /HPF (Few); Bilirubin,Urine Negative (Negative); Blood, Urine Moderate mg/dL (Negative); Glucose,Urine (UA) >=500 mg/dL (Negative); Ketones,Urine 20 mg/dL (Negative); Nitrite,Urine Negative (Negative); Protein,Urine >=500 MG/DL; RBC,Urine 1 /HPF (0-4); Urine Color Yellow (Yellow); Urine Urobilinogen < 2.0 EU/DL (0.2-1.0); WBC,Urine 19 /HPF (0-6)
[2017-12-17 19:09] LABS: Barbiturates Screen,Urine Negative (Negative); Benzodiazepines Screen,Urine Positive (Negative); Cannabinoid Screen,Urine Negative (Negative); Opiate Screen,Urine Negative (Negative); Phencyclidine Screen,Urine Negative (Negative)
[2017-12-17] MEDS ORDERED: ACETAMINOPHEN 325 MG TABLET PO PRN ×2 (19:29→23:13)
[2017-12-17] MEDS ORDERED: ONDANSETRON 4 MG/2 ML VIAL IV PRN (19:29)
[2017-12-17] MEDS ORDERED: SODIUM CHLORIDE 0.9% 1,000 ML IV SCH (19:30)
[2017-12-17] MEDS: SODIUM CHLORIDE 0.9% 1,000 ML IV SCH (23:37)
[2017-12-17] MEDS: FAMOTIDINE 20 MG/2 ML VIAL IV SCH (23:45)
[2017-12-17] MEDS: cefTRIAXone 1,000 MG in SYRINGE 1 EACH IV SCH (23:47)
[2017-12-18 05:19] LABS: Basophils # 0.1 10*3/uL (0.0-0.2); Basophils % 0.6 % (0.0-0.8); Eosinophils % 0.1 % (0.00-10.9); Hematocrit 28.2 VOL% (35.7-47.0); Hemoglobin 9.6 GM/DL (12.0-16.0); Immature Granulocytes % 0.6 %; Immature Granulocytes Absolute 0.06 #; Lymphocytes # 2.1 10*3/uL (1.4-4.0); Lymphocytes % 20.8 % (21.3-54.2); Mean Corpuscular Hemoglobin 31 PG (27-34); Mean Corpuscular Volume 89.5 FL (87-102); Monocytes # 0.8 10*3/uL (0.11-0.8); Monocytes % 8.2 % (1.7-12.7); Neutrophils # 7.1 10*3/uL (1.4-7.4); Neutrophils % 69.7 % (38.7-73.9); Platelet Count 380 T/CUMM (130-400); Red Blood Count 3.15 MC/CUMM (3.8-5.5); Red Cell Distribution Width 14.1 % (9.3-17.3); White Blood Count 10.1 T/CUMM (4-12)
[2017-12-18 05:55] LABS: Albumin 2.7 G/DL (3.4-5.0); Bilirubin,Total 0.9 MG/DL (0.2-1.0); Calcium 7.8 MG/DL (8.5-10.1); Osmolality,Calculated 294.1 MOS/KG (273-304); Potassium 3.7 MMOL/L (3.5-5.1); Total Protein 5.9 G/DL (6.4-8.3)
[2017-12-18] MEDS ORDERED: FAMOTIDINE 20 MG/2 ML VIAL IV SCH (09:00)
[2017-12-18] MEDS ORDERED: cefTRIAXone 1,000 MG in SYRINGE 1 EACH IV SCH (09:00)
[2017-12-18] MEDS ORDERED: PANTOPRAZOLE 40 MG TABLET PO SCH (09:00)
[2017-12-18] MEDS: SODIUM CHLORIDE 0.9% 1,000 ML IV SCH ×2 (09:52→18:56)
[2017-12-18] MEDS ORDERED: traMADol 50 MG TABLET PO PRN (11:50)
[2017-12-18] MEDS: tiZANidine 4 MG TABLET PO SCH ×2 (12:45→17:51)
[2017-12-18] MEDS: DIGOXIN 0.25 MG TABLET PO SCH (12:45)
[2017-12-18] MEDS: OXYBUTYNIN 5 MG TABLET PO SCH ×2 (15:20→21:12)
[2017-12-18] MEDS: INSULIN LISPRO 100 UNIT/ML SUBCUT SCH ×2 (17:50→21:20)
[2017-12-18] MEDS: POTASSIUM CHLORIDE 10 MEQ TABLET PO SCH (21:12)
[2017-12-18] MEDS: FUROSEMIDE 40 MG TABLET PO SCH (21:12)
[2017-12-18] MEDS: CARVEDILOL 25 MG TABLET PO SCH (21:13)
[2017-12-18] MEDS: FAMOTIDINE 20 MG/2 ML VIAL IV SCH (21:13)
[2017-12-18] MEDS: cefTRIAXone 1,000 MG in SYRINGE 1 EACH IV SCH (23:06)
[2017-12-19] MEDS: tiZANidine 4 MG TABLET PO SCH ×4 (00:40→17:20)
[2017-12-19] MEDS: SODIUM CHLORIDE 0.9% 1,000 ML IV SCH ×2 (04:30→15:20)
[2017-12-19] MEDS: LEVOTHYROXINE 125 MCG TABLET PO SCH (07:24)
[2017-12-19] MEDS: INSULIN LISPRO 100 UNIT/ML SUBCUT SCH ×4 (07:57→21:33)
[2017-12-19] MEDS: ONDANSETRON 4 MG/2 ML VIAL IV PRN ×2 (08:47→17:52)
[2017-12-19] MEDS: FENOFIBRATE 145 MG TABLET PO SCH (08:48)
[2017-12-19] MEDS: FLUoxetine 20 MG CAPSULE PO SCH (08:49)
[2017-12-19] MEDS: OXYBUTYNIN 5 MG TABLET PO SCH ×3 (08:49→21:39)
[2017-12-19] MEDS: POTASSIUM CHLORIDE 10 MEQ TABLET PO SCH ×2 (08:50→21:38)
[2017-12-19] MEDS: FUROSEMIDE 40 MG TABLET PO SCH ×2 (08:50→21:38)
[2017-12-19] MEDS: predniSONE 20 MG TABLET PO SCH (08:50)
[2017-12-19] MEDS: ATORVASTATIN 40 MG TABLET PO SCH (08:50)
[2017-12-19] MEDS: CARVEDILOL 25 MG TABLET PO SCH ×2 (08:50→21:39)
[2017-12-19] MEDS: ENOXAPARIN 30 MG/0.3 ML SYRINGE SUBCUT SCH (08:51)
[2017-12-19] MEDS: FELODIPINE 5 MG TABLET PO SCH (08:52)
[2017-12-19] MEDS ORDERED: DARIFENACIN HYDROBROMIDE 15 MG PO SCH (09:00)
[2017-12-19] MEDS: DIGOXIN 0.25 MG TABLET PO SCH (12:56)
[2017-12-19] MEDS: FAMOTIDINE 20 MG/2 ML VIAL IV SCH (21:32)
[2017-12-19] MEDS: traZODone 50 MG TABLET PO PRN (21:42)
[2017-12-19] MEDS: cefTRIAXone 1,000 MG in SYRINGE 1 EACH IV SCH (23:41)
[2017-12-20] MEDS: tiZANidine 4 MG TABLET PO SCH ×5 (00:37→23:42)
[2017-12-20] MEDS: SODIUM CHLORIDE 0.9% 1,000 ML IV SCH ×3 (01:20→21:39)
[2017-12-20 03:25] LABS: Calcium 8.5 MG/DL (8.5-10.1); Osmolality,Calculated 295.6 MOS/KG (273-304); Potassium 3.6 MMOL/L (3.5-5.1)
[2017-12-20] MEDS: LEVOTHYROXINE 125 MCG TABLET PO SCH (07:12)
[2017-12-20] MEDS: INSULIN LISPRO 100 UNIT/ML SUBCUT SCH ×4 (07:38→20:44)
[2017-12-20] MEDS: ONDANSETRON 4 MG/2 ML VIAL IV PRN (09:42)
[2017-12-20] MEDS: FENOFIBRATE 145 MG TABLET PO SCH (10:19)
[2017-12-20] MEDS: CARVEDILOL 25 MG TABLET PO SCH ×2 (10:19→20:36)
[2017-12-20] MEDS: POTASSIUM CHLORIDE 10 MEQ TABLET PO SCH ×2 (10:19→20:37)
[2017-12-20] MEDS: FLUoxetine 20 MG CAPSULE PO SCH (10:19)
[2017-12-20] MEDS: predniSONE 20 MG TABLET PO SCH (10:19)
[2017-12-20] MEDS: FELODIPINE 5 MG TABLET PO SCH (10:20)
[2017-12-20] MEDS: FUROSEMIDE 40 MG TABLET PO SCH ×2 (10:20→20:36)
[2017-12-20] MEDS: ATORVASTATIN 40 MG TABLET PO SCH (10:20)
[2017-12-20] MEDS: OXYBUTYNIN 5 MG TABLET PO SCH ×3 (10:20→20:36)
[2017-12-20] MEDS: ENOXAPARIN 30 MG/0.3 ML SYRINGE SUBCUT SCH (10:21)
[2017-12-20] MEDS ORDERED: DIGOXIN 0.25 MG TABLET PO SCH (11:50)
[2017-12-20] MEDS: FAMOTIDINE 20 MG/2 ML VIAL IV SCH (20:37)
[2017-12-20] MEDS: cefTRIAXone 1,000 MG in SYRINGE 1 EACH IV SCH (20:41)
[2017-12-21] MEDS: tiZANidine 4 MG TABLET PO SCH (05:10)
[2017-12-21 05:57] LABS: Basophils # 0.1 10*3/uL (0.0-0.2); Basophils % 0.5 % (0.0-0.8); Hemoglobin 10.8 GM/DL (12.0-16.0); Immature Granulocytes % 0.5 %; Immature Granulocytes Absolute 0.05 #; Lymphocytes # 1.3 10*3/uL (1.4-4.0); Lymphocytes % 11.8 % (21.3-54.2); Mean Corpuscular HGB Conc 32.7 GM/DL (32-36); Mean Corpuscular Hemoglobin 30 PG (27-34); Mean Corpuscular Volume 91.7 FL (87-102); Mean Platelet Volume 9.2 FL (9.6-12.0); Monocytes # 0.6 10*3/uL (0.11-0.8); Monocytes % 5.1 % (1.7-12.7); Neutrophils # 8.9 10*3/uL (1.4-7.4); Neutrophils % 82.1 % (38.7-73.9); Platelet Count 339 T/CUMM (130-400); Red Cell Distribution Width 13.2 % (9.3-17.3); White Blood Count 10.8 T/CUMM (4-12)
[2017-12-21 06:32] LABS: Calcium 8.1 MG/DL (8.5-10.1); Osmolality,Calculated 305.7 MOS/KG (273-304); Potassium 4.3 MMOL/L (3.5-5.1); Risk Ratio 4.9; VLDL CHOLESTEROL 68.4 MG/DL
[2017-12-21] MEDS: LEVOTHYROXINE 125 MCG TABLET PO SCH (06:32)
[2017-12-21] MEDS: INSULIN LISPRO 100 UNIT/ML SUBCUT SCH ×4 (07:25→22:01)
[2017-12-21] MEDS ORDERED: tiZANidine 4 MG TABLET PO PRN (07:44)
[2017-12-21] MEDS: ONDANSETRON 4 MG/2 ML VIAL IV PRN (07:45)
[2017-12-21] MEDS ORDERED: predniSONE 10 MG TABLET PO SCH (09:00)
[2017-12-21] MEDS: SODIUM CHLORIDE 0.9% 1,000 ML IV SCH ×2 (09:27→19:08)
[2017-12-21] MEDS: ATORVASTATIN 40 MG TABLET PO SCH (10:48)
[2017-12-21] MEDS: FLUoxetine 20 MG CAPSULE PO SCH (10:48)
[2017-12-21] MEDS: FELODIPINE 5 MG TABLET PO SCH (10:48)
[2017-12-21] MEDS: FUROSEMIDE 40 MG TABLET PO SCH ×2 (10:48→21:58)
[2017-12-21] MEDS: FENOFIBRATE 145 MG TABLET PO SCH (10:48)
[2017-12-21] MEDS: IRBESARTAN 150 MG TABLET PO SCH (10:48)
[2017-12-21] MEDS: POTASSIUM CHLORIDE 10 MEQ TABLET PO SCH ×2 (10:48→21:58)
[2017-12-21] MEDS: CARVEDILOL 25 MG TABLET PO SCH ×2 (10:49→21:58)
[2017-12-21] MEDS: OXYBUTYNIN 5 MG TABLET PO SCH ×3 (10:49→21:58)
[2017-12-21] MEDS: ENOXAPARIN 30 MG/0.3 ML SYRINGE SUBCUT SCH (10:49)
[2017-12-21] MEDS: traZODone 50 MG TABLET PO PRN (21:58)
[2017-12-21] MEDS: FAMOTIDINE 20 MG/2 ML VIAL IV SCH (21:58)
[2017-12-21] MEDS: cefTRIAXone 1,000 MG in SYRINGE 1 EACH IV SCH (22:01)
[2017-12-22] MEDS: SODIUM CHLORIDE 0.9% 1,000 ML IV SCH ×2 (02:10→16:37)
[2017-12-22] MEDS: LEVOTHYROXINE 125 MCG TABLET PO SCH (07:44)
[2017-12-22 07:47] LABS: Basophils # 0.1 10*3/uL (0.0-0.2); Basophils % 1.1 % (0.0-0.8); Eosinophils % 0.8 % (0.00-10.9); Hematocrit 29.4 VOL% (35.7-47.0); Hemoglobin 9.9 GM/DL (12.0-16.0); Immature Granulocytes % 0.4 %; Immature Granulocytes Absolute 0.02 #; Lymphocytes # 1.6 10*3/uL (1.4-4.0); Mean Corpuscular HGB Conc 33.7 GM/DL (32-36); Mean Corpuscular Hemoglobin 30 PG (27-34); Mean Corpuscular Volume 90.2 FL (87-102); Mean Platelet Volume 9.5 FL (9.6-12.0); Monocytes # 0.4 10*3/uL (0.11-0.8); Monocytes % 7.7 % (1.7-12.7); Neutrophils # 3.2 10*3/uL (1.4-7.4); Red Blood Count 3.26 MC/CUMM (3.8-5.5); Red Cell Distribution Width 13.3 % (9.3-17.3)
[2017-12-22 07:48] LABS: Platelet Count 223 T/CUMM (130-400); White Blood Count 5.3 T/CUMM (4-12)
[2017-12-22 08:09] LABS: Osmolality,Calculated 303.6 MOS/KG (273-304); Potassium 3.5 MMOL/L (3.5-5.1)
[2017-12-22] MEDS: INSULIN LISPRO 100 UNIT/ML SUBCUT SCH ×4 (08:18→21:47)
[2017-12-22] MEDS: ENOXAPARIN 30 MG/0.3 ML SYRINGE SUBCUT SCH (10:53)
[2017-12-22] MEDS: OXYBUTYNIN 5 MG TABLET PO SCH ×3 (11:01→21:43)
[2017-12-22] MEDS: CARVEDILOL 25 MG TABLET PO SCH ×2 (11:01→21:44)
[2017-12-22] MEDS: POTASSIUM CHLORIDE 10 MEQ TABLET PO SCH ×2 (11:02→21:43)
[2017-12-22] MEDS: FUROSEMIDE 40 MG TABLET PO SCH ×2 (11:02→21:43)
[2017-12-22] MEDS: IRBESARTAN 150 MG TABLET PO SCH (14:45)
[2017-12-22] MEDS: ATORVASTATIN 40 MG TABLET PO SCH (14:45)
[2017-12-22] MEDS: FENOFIBRATE 145 MG TABLET PO SCH (14:45)
[2017-12-22] MEDS: FELODIPINE 5 MG TABLET PO SCH (14:45)
[2017-12-22] MEDS: FLUoxetine 20 MG CAPSULE PO SCH (14:45)
[2017-12-22] MEDS ORDERED: QUEtiapine 25 MG TABLET PO SCH (21:00)
[2017-12-22] MEDS: FAMOTIDINE 20 MG/2 ML VIAL IV SCH (21:44)
[2017-12-22] MEDS: cefTRIAXone 1,000 MG in SYRINGE 1 EACH IV SCH (21:44)
[2017-12-23 04:56] LABS: Basophils # 0.1 10*3/uL (0.0-0.2); Basophils % 0.9 % (0.0-0.8); Eosinophils # 0.2 10*3/uL (0.0-0.87); Eosinophils % 2.9 % (0.00-10.9); Hematocrit 29.2 VOL% (35.7-47.0); Hemoglobin 9.7 GM/DL (12.0-16.0); Immature Granulocytes % 0.2 %; Immature Granulocytes Absolute 0.01 #; Lymphocytes # 1.9 10*3/uL (1.4-4.0); Lymphocytes % 34.2 % (21.3-54.2); Mean Corpuscular HGB Conc 33.2 GM/DL (32-36); Mean Corpuscular Hemoglobin 30 PG (27-34); Mean Platelet Volume 9.5 FL (9.6-12.0); Monocytes # 0.5 10*3/uL (0.11-0.8); Monocytes % 8.8 % (1.7-12.7); Neutrophils # 2.9 10*3/uL (1.4-7.4); Platelet Count 183 T/CUMM (130-400); Red Blood Count 3.21 MC/CUMM (3.8-5.5); Red Cell Distribution Width 13.3 % (9.3-17.3); White Blood Count 5.5 T/CUMM (4-12)
[2017-12-23 05:18] LABS: Calcium 7.7 MG/DL (8.5-10.1); Osmolality,Calculated 300.4 MOS/KG (273-304); Potassium 3.5 MMOL/L (3.5-5.1)
[2017-12-23] MEDS: SODIUM CHLORIDE 0.9% 1,000 ML IV SCH (05:57)
[2017-12-23] MEDS: LEVOTHYROXINE 125 MCG TABLET PO SCH (06:03)
[2017-12-23 07:37] VITALS: BP 169/72
[2017-12-23] MEDS: INSULIN LISPRO 100 UNIT/ML SUBCUT SCH (07:53)
[2017-12-23] MEDS ORDERED: DIGOXIN 0.25 MG TABLET PO SCH (13:00)
[2017-12-23] MEDS ORDERED: SULFAMETHOX/TRIMETHOPRIM 800-160 MG TABLET PO SCH (21:00)
== END 2017-12-23 08:46 | disposition home or self-care (01) | DRG 689 ==
LOC: EDUNIT# → EDBD → N.ED 16:27 → N.EDINP 21:29 → N.2E 22:35
PROVIDERS: ADMIT Family Medicine; ATTEND Family Medicine

== ENCOUNTER 2018-04-14 17:29 | Inpatient (IN) ==
[2018-04-14] MEDS ORDERED: ONDANSETRON 4 MG/2 ML VIAL IV STA (18:51)
[2018-04-14 18:59] LABS: Basophils % 0.8 % (0.0-0.8); Eosinophils % 0.3 % (0.00-10.9); Hematocrit 27.4 VOL% (35.7-47.0); Immature Granulocytes % 0.3 %; Immature Granulocytes Absolute 0.01 #; Lymphocytes # 0.6 10*3/uL (1.4-4.0); Lymphocytes % 15.9 % (21.3-54.2); Mean Corpuscular HGB Conc 32.8 GM/DL (32-36); Mean Corpuscular Hemoglobin 30 PG (27-34); Mean Corpuscular Volume 91.3 FL (87-102); Mean Platelet Volume 9.8 FL (9.6-12.0); Monocytes # 0.4 10*3/uL (0.11-0.8); Monocytes % 11.4 % (1.7-12.7); Neutrophils # 2.7 10*3/uL (1.4-7.4); Neutrophils % 71.3 % (38.7-73.9); Platelet Count 277 T/CUMM (130-400); Red Cell Distribution Width 15.5 % (9.3-17.3); White Blood Count 3.8 T/CUMM (4-12)
[2018-04-14 19:10] LABS: Albumin 3.1 G/DL (3.4-5.0); Bilirubin,Total 0.8 MG/DL (0.2-1.0); Calcium 8.2 MG/DL (8.5-10.1); Osmolality,Calculated 294.1 MOS/KG (273-304); Potassium 4.6 MMOL/L (3.5-5.1); Total Protein 5.9 G/DL (6.4-8.3)
[2018-04-14] MEDS ORDERED: SODIUM CHLORIDE 0.9% 1,000 ML IV STA (19:57)
[2018-04-14] MEDS ORDERED: DEXTROSE 50% 25 GM/50 ML VIAL IV PRN (20:02)
[2018-04-14] MEDS ORDERED: GLUCAGON 1 MG VIAL IM PRN (20:02)
[2018-04-14] MEDS ORDERED: ACETAMINOPHEN 325 MG TABLET PO PRN (20:02)
[2018-04-14] MEDS: SODIUM CHLORIDE 0.9% 1,000 ML IV SCH (21:56)
[2018-04-14] MEDS: DOCUSATE SODIUM 100 MG CAPSULE PO SCH (21:58)
[2018-04-14 22:52] LABS: Apearance,Urine CLEAR (Clear); Bilirubin,Urine Negative (Negative); Blood, Urine Negative (Negative); Glucose,Urine (UA) 50 mg/dL (Negative); Ketones,Urine Negative (Negative); Nitrite,Urine Negative (Negative); Protein,Urine 30 MG/DL; Squamous Epithelial Cell,Urine Occasional /HPF (0-10); Urine Color Yellow (Yellow); Urine Urobilinogen < 2.0 EU/DL (0.2-1.0); WBC,Urine <1 /HPF (0-6)
[2018-04-15] MEDS ORDERED: traZODone 50 MG TABLET PO PRN (07:48)
[2018-04-15] MEDS: ONDANSETRON 4 MG/2 ML VIAL IV PRN (07:56)
[2018-04-15] MEDS ORDERED: [UNRECOGNIZED DRUG - OTHER] PO SCH (09:00)
[2018-04-15] MEDS ORDERED: FELODIPINE 5 MG TABLET PO SCH (09:00)
[2018-04-15] MEDS: SODIUM CHLORIDE 0.9% 1,000 ML IV SCH ×3 (09:40→23:20)
[2018-04-15] MEDS: DIGOXIN 0.25 MG TABLET PO SCH (09:46)
[2018-04-15] MEDS: FENOFIBRATE 145 MG TABLET PO SCH (09:47)
[2018-04-15] MEDS: FLUoxetine 20 MG CAPSULE PO SCH (09:47)
[2018-04-15] MEDS: PANTOPRAZOLE 40 MG VIAL IV SCH (09:47)
[2018-04-15] MEDS: FUROSEMIDE 40 MG TABLET PO SCH ×2 (09:47→15:17)
[2018-04-15] MEDS: ATORVASTATIN 40 MG TABLET PO SCH (09:47)
[2018-04-15] MEDS: LOSARTAN 50 MG TABLET PO SCH (09:47)
[2018-04-15] MEDS: DOCUSATE SODIUM 100 MG CAPSULE PO SCH ×2 (09:48→21:06)
[2018-04-15] MEDS: POTASSIUM CHLORIDE 10 MEQ TABLET PO SCH ×2 (09:48→21:07)
[2018-04-15] MEDS: OXYBUTYNIN 5 MG TABLET PO SCH ×3 (09:48→21:07)
[2018-04-15] MEDS: ALPRAZolam 0.5 MG TABLET PO PRN ×2 (09:52→21:12)
[2018-04-15] MEDS: INSULIN LISPRO 100 UNIT/ML SUBCUT SCH ×3 (11:58→21:07)
[2018-04-15] MEDS: CARVEDILOL 25 MG TABLET PO SCH (16:13)
[2018-04-15 18:48] LABS: Barbiturates Screen,Urine Negative (Negative); Benzodiazepines Screen,Urine Positive (Negative); Cannabinoid Screen,Urine Negative (Negative); Opiate Screen,Urine Negative (Negative); Phencyclidine Screen,Urine Negative (Negative)
[2018-04-15] MEDS ORDERED: INSULIN GLARGINE 100 UNIT/ML SUBCUT SCH (21:00)
[2018-04-16 04:37] LABS: Basophils % 0.5 % (0.0-0.8); Eosinophils % 0.2 % (0.00-10.9); Hematocrit 24.7 VOL% (35.7-47.0); Immature Granulocytes % 0.5 %; Immature Granulocytes Absolute 0.02 #; Lymphocytes # 1.2 10*3/uL (1.4-4.0); Lymphocytes % 27.6 % (21.3-54.2); Mean Corpuscular HGB Conc 32.4 GM/DL (32-36); Mean Corpuscular Hemoglobin 29 PG (27-34); Mean Corpuscular Volume 89.8 FL (87-102); Mean Platelet Volume 9.1 FL (9.6-12.0); Monocytes # 0.5 10*3/uL (0.11-0.8); Monocytes % 11.5 % (1.7-12.7); Neutrophils # 2.5 10*3/uL (1.4-7.4); Neutrophils % 59.7 % (38.7-73.9); Platelet Count 228 T/CUMM (130-400); Red Blood Count 2.75 MC/CUMM (3.8-5.5); Red Cell Distribution Width 14.9 % (9.3-17.3); White Blood Count 4.2 T/CUMM (4-12)
[2018-04-16 05:13] LABS: Albumin 2.7 G/DL (3.4-5.0); Bilirubin,Total 0.7 MG/DL (0.2-1.0); Calcium 7.8 MG/DL (8.5-10.1); Ferritin 269.6 ng/ml (8-252); Free T4 (Free Thyroxine) 1.29 NG/DL (0.76-1.46); Osmolality,Calculated 283.5 MOS/KG (273-304); Potassium 3.5 MMOL/L (3.5-5.1); Thyroid Stimulating Hormone 0.53 uIU/ml (0.358-3.74); Total Protein 5.6 G/DL (6.4-8.3)
[2018-04-16] MEDS: LEVOTHYROXINE 125 MCG TABLET PO SCH (06:10)
[2018-04-16] MEDS: SODIUM CHLORIDE 0.9% 1,000 ML IV SCH ×4 (07:00→22:43)
[2018-04-16] MEDS: ONDANSETRON 4 MG/2 ML VIAL IV PRN (08:04)
[2018-04-16] MEDS: POTASSIUM CHLORIDE 10 MEQ TABLET PO SCH ×2 (10:48→20:59)
[2018-04-16] MEDS: CARVEDILOL 25 MG TABLET PO SCH ×2 (10:48→16:51)
[2018-04-16] MEDS: FUROSEMIDE 40 MG TABLET PO SCH ×2 (10:48→16:51)
[2018-04-16] MEDS: ATORVASTATIN 40 MG TABLET PO SCH (10:48)
[2018-04-16] MEDS: FLUoxetine 20 MG CAPSULE PO SCH (10:48)
[2018-04-16] MEDS: DOCUSATE SODIUM 100 MG CAPSULE PO SCH ×2 (10:48→20:59)
[2018-04-16] MEDS: FENOFIBRATE 145 MG TABLET PO SCH (10:49)
[2018-04-16] MEDS: INSULIN LISPRO 100 UNIT/ML SUBCUT SCH ×4 (10:49→21:00)
[2018-04-16] MEDS: OXYBUTYNIN 5 MG TABLET PO SCH ×3 (10:49→20:59)
[2018-04-16] MEDS: LOSARTAN 50 MG TABLET PO SCH (10:49)
[2018-04-16] MEDS: DIGOXIN 0.25 MG TABLET PO SCH ×2 (10:51→10:53)
[2018-04-16] MEDS: PANTOPRAZOLE 40 MG VIAL IV SCH (10:52)
[2018-04-17 06:43] LABS: Basophils % 0.6 % (0.0-0.8); Eosinophils % 0.7 % (0.00-10.9); Hematocrit 24.5 VOL% (35.7-47.0); Hemoglobin 8.1 GM/DL (12.0-16.0); Immature Granulocytes % 0.2 %; Immature Granulocytes Absolute 0.01 #; Lymphocytes # 1.6 10*3/uL (1.4-4.0); Lymphocytes % 30.2 % (21.3-54.2); Mean Corpuscular HGB Conc 33.1 GM/DL (32-36); Mean Corpuscular Hemoglobin 30 PG (27-34); Mean Corpuscular Volume 90.7 FL (87-102); Mean Platelet Volume 9.4 FL (9.6-12.0); Monocytes # 0.5 10*3/uL (0.11-0.8); Monocytes % 9.2 % (1.7-12.7); Neutrophils # 3.2 10*3/uL (1.4-7.4); Neutrophils % 59.1 % (38.7-73.9); Platelet Count 253 T/CUMM (130-400); Red Cell Distribution Width 14.8 % (9.3-17.3); White Blood Count 5.4 T/CUMM (4-12)
[2018-04-17] MEDS: LEVOTHYROXINE 125 MCG TABLET PO SCH (06:49)
[2018-04-17] MEDS: SODIUM CHLORIDE 0.9% 1,000 ML IV SCH (06:49)
[2018-04-17 06:58] LABS: Albumin 2.6 G/DL (3.4-5.0); Bilirubin,Total 0.7 MG/DL (0.2-1.0); Calcium 7.6 MG/DL (8.5-10.1); Osmolality,Calculated 288.4 MOS/KG (273-304); Potassium 4.3 MMOL/L (3.5-5.1); Total Protein 5.4 G/DL (6.4-8.3)
[2018-04-17] MEDS: PANTOPRAZOLE 40 MG VIAL IV SCH (11:08)
[2018-04-17] MEDS: FENOFIBRATE 145 MG TABLET PO SCH (11:09)
[2018-04-17] MEDS: POTASSIUM CHLORIDE 10 MEQ TABLET PO SCH ×2 (11:09→21:27)
[2018-04-17] MEDS: ATORVASTATIN 40 MG TABLET PO SCH (11:09)
[2018-04-17] MEDS: LOSARTAN 50 MG TABLET PO SCH (11:09)
[2018-04-17] MEDS: FUROSEMIDE 40 MG TABLET PO SCH ×2 (11:09→17:16)
[2018-04-17] MEDS: FLUoxetine 20 MG CAPSULE PO SCH (11:09)
[2018-04-17] MEDS: INSULIN LISPRO 100 UNIT/ML SUBCUT SCH ×4 (11:09→21:28)
[2018-04-17] MEDS: CARVEDILOL 25 MG TABLET PO SCH ×2 (11:09→17:16)
[2018-04-17] MEDS: DOCUSATE SODIUM 100 MG CAPSULE PO SCH ×2 (11:09→21:26)
[2018-04-17] MEDS: OXYBUTYNIN 5 MG TABLET PO SCH ×3 (11:09→21:27)
[2018-04-17] MEDS: ALPRAZolam 0.5 MG TABLET PO PRN ×2 (11:11→17:20)
[2018-04-18 05:58] LABS: Basophils % 0.3 % (0.0-0.8); Eosinophils # 0.1 10*3/uL (0.0-0.87); Eosinophils % 2.3 % (0.00-10.9); Hematocrit 23.9 VOL% (35.7-47.0); Hemoglobin 7.8 GM/DL (12.0-16.0); Immature Granulocytes % 0.2 %; Immature Granulocytes Absolute 0.01 #; Lymphocytes # 1.7 10*3/uL (1.4-4.0); Lymphocytes % 29.3 % (21.3-54.2); Mean Corpuscular HGB Conc 32.6 GM/DL (32-36); Mean Corpuscular Hemoglobin 29 PG (27-34); Mean Corpuscular Volume 89.5 FL (87-102); Mean Platelet Volume 9.4 FL (9.6-12.0); Monocytes # 0.4 10*3/uL (0.11-0.8); Neutrophils # 3.5 10*3/uL (1.4-7.4); Neutrophils % 60.9 % (38.7-73.9); Platelet Count 234 T/CUMM (130-400); Red Blood Count 2.67 MC/CUMM (3.8-5.5); Red Cell Distribution Width 14.6 % (9.3-17.3); White Blood Count 5.7 T/CUMM (4-12)
[2018-04-18 06:49] LABS: Calcium 7.9 MG/DL (8.5-10.1); Osmolality,Calculated 284.4 MOS/KG (273-304); Potassium 3.3 MMOL/L (3.5-5.1)
[2018-04-18] MEDS: INSULIN LISPRO 100 UNIT/ML SUBCUT SCH ×4 (08:08→21:53)
[2018-04-18] MEDS ORDERED: LIDOCAINE 2% 5 ML VIAL ONE (10:00)
[2018-04-18] MEDS ORDERED: POTASSIUM CHLORIDE 20 MEQ TABLET PO ONE (13:00)
[2018-04-18] MEDS ORDERED: PROPOFOL 200 MG/20 ML VIAL IV ONE (13:57)
[2018-04-18] MEDS: FUROSEMIDE 40 MG TABLET PO SCH ×2 (14:45→16:42)
[2018-04-18] MEDS: CARVEDILOL 25 MG TABLET PO SCH ×2 (14:45→16:42)
[2018-04-18] MEDS: FENOFIBRATE 145 MG TABLET PO SCH (14:51)
[2018-04-18] MEDS: ALPRAZolam 0.5 MG TABLET PO PRN ×2 (14:51→21:56)
[2018-04-18] MEDS: POTASSIUM CHLORIDE 10 MEQ TABLET PO SCH ×2 (14:51→21:53)
[2018-04-18] MEDS: FLUoxetine 20 MG CAPSULE PO SCH (14:51)
[2018-04-18] MEDS: LOSARTAN 50 MG TABLET PO SCH (14:54)
[2018-04-18] MEDS: ATORVASTATIN 40 MG TABLET PO SCH (14:55)
[2018-04-18] MEDS: DOCUSATE SODIUM 100 MG CAPSULE PO SCH ×2 (14:55→21:53)
[2018-04-18] MEDS: OXYBUTYNIN 5 MG TABLET PO SCH ×3 (14:55→21:53)
[2018-04-18] MEDS: LEVOTHYROXINE 125 MCG TABLET PO SCH (14:55)
[2018-04-18] MEDS: PANTOPRAZOLE 40 MG VIAL IV SCH (14:55)
[2018-04-19] MEDS: LEVOTHYROXINE 125 MCG TABLET PO SCH (06:07)
[2018-04-19 08:40] LABS: Basophils % 0.5 % (0.0-0.8); Eosinophils # 0.2 10*3/uL (0.0-0.87); Eosinophils % 2.4 % (0.00-10.9); Hematocrit 27.3 VOL% (35.7-47.0); Hemoglobin 8.9 GM/DL (12.0-16.0); Immature Granulocytes % 0.4 %; Immature Granulocytes Absolute 0.03 #; Lymphocytes # 1.5 10*3/uL (1.4-4.0); Lymphocytes % 18.6 % (21.3-54.2); Mean Corpuscular HGB Conc 32.6 GM/DL (32-36); Mean Corpuscular Hemoglobin 29 PG (27-34); Mean Corpuscular Volume 89.2 FL (87-102); Mean Platelet Volume 9.1 FL (9.6-12.0); Monocytes # 0.4 10*3/uL (0.11-0.8); Monocytes % 5.2 % (1.7-12.7); Neutrophils % 72.9 % (38.7-73.9); Platelet Count 322 T/CUMM (130-400); Red Blood Count 3.06 MC/CUMM (3.8-5.5); White Blood Count 8.2 T/CUMM (4-12)
[2018-04-19] MEDS: INSULIN LISPRO 100 UNIT/ML SUBCUT SCH ×4 (09:01→21:19)
[2018-04-19] MEDS: FUROSEMIDE 40 MG TABLET PO SCH (09:02)
[2018-04-19] MEDS: OXYBUTYNIN 5 MG TABLET PO SCH ×3 (09:02→21:18)
[2018-04-19] MEDS: DOCUSATE SODIUM 100 MG CAPSULE PO SCH ×2 (09:02→21:18)
[2018-04-19] MEDS: LOSARTAN 50 MG TABLET PO SCH (09:02)
[2018-04-19] MEDS: CARVEDILOL 25 MG TABLET PO SCH ×2 (09:02→17:11)
[2018-04-19] MEDS: FLUoxetine 20 MG CAPSULE PO SCH (09:02)
[2018-04-19] MEDS: POTASSIUM CHLORIDE 10 MEQ TABLET PO SCH ×2 (09:02→21:18)
[2018-04-19] MEDS: ATORVASTATIN 40 MG TABLET PO SCH (09:02)
[2018-04-19] MEDS: PANTOPRAZOLE 40 MG VIAL IV SCH (09:03)
[2018-04-19] MEDS: ALPRAZolam 0.5 MG TABLET PO PRN ×2 (09:07→21:18)
[2018-04-19] MEDS: FENOFIBRATE 145 MG TABLET PO SCH (09:07)
[2018-04-20 04:40] LABS: Basophils % 0.3 % (0.0-0.8); Eosinophils # 0.2 10*3/uL (0.0-0.87); Eosinophils % 2.5 % (0.00-10.9); Hematocrit 24.7 VOL% (35.7-47.0); Immature Granulocytes % 0.3 %; Immature Granulocytes Absolute 0.03 #; Lymphocytes # 1.9 10*3/uL (1.4-4.0); Lymphocytes % 21.1 % (21.3-54.2); Mean Corpuscular HGB Conc 32.4 GM/DL (32-36); Mean Corpuscular Hemoglobin 29 PG (27-34); Mean Corpuscular Volume 90.5 FL (87-102); Mean Platelet Volume 9.2 FL (9.6-12.0); Monocytes # 0.6 10*3/uL (0.11-0.8); Monocytes % 6.7 % (1.7-12.7); Neutrophils # 6.1 10*3/uL (1.4-7.4); Neutrophils % 69.1 % (38.7-73.9); Platelet Count 268 T/CUMM (130-400); Red Blood Count 2.73 MC/CUMM (3.8-5.5); White Blood Count 8.8 T/CUMM (4-12)
[2018-04-20 04:49] LABS: Calcium 8.1 MG/DL (8.5-10.1); Osmolality,Calculated 284.7 MOS/KG (273-304); Potassium 3.8 MMOL/L (3.5-5.1)
[2018-04-20] MEDS: LEVOTHYROXINE 125 MCG TABLET PO SCH (05:41)
[2018-04-20] MEDS: INSULIN LISPRO 100 UNIT/ML SUBCUT SCH ×4 (09:19→21:39)
[2018-04-20] MEDS: ALPRAZolam 0.5 MG TABLET PO PRN ×2 (09:20→21:38)
[2018-04-20] MEDS: FUROSEMIDE 40 MG TABLET PO SCH (09:20)
[2018-04-20] MEDS: ATORVASTATIN 40 MG TABLET PO SCH (09:21)
[2018-04-20] MEDS: OXYBUTYNIN 5 MG TABLET PO SCH ×3 (09:21→21:38)
[2018-04-20] MEDS: CARVEDILOL 25 MG TABLET PO SCH ×2 (09:21→16:43)
[2018-04-20] MEDS: FLUoxetine 20 MG CAPSULE PO SCH (09:21)
[2018-04-20] MEDS: LOSARTAN 50 MG TABLET PO SCH (09:21)
[2018-04-20] MEDS: POTASSIUM CHLORIDE 10 MEQ TABLET PO SCH ×2 (09:22→21:39)
[2018-04-20] MEDS: DOCUSATE SODIUM 100 MG CAPSULE PO SCH ×2 (09:22→21:39)
[2018-04-20] MEDS: PANTOPRAZOLE 40 MG VIAL IV SCH (09:23)
[2018-04-20] MEDS: FENOFIBRATE 145 MG TABLET PO SCH (09:23)
[2018-04-21 04:31] LABS: Basophils % 0.3 % (0.0-0.8); Eosinophils # 0.2 10*3/uL (0.0-0.87); Eosinophils % 1.9 % (0.00-10.9); Hematocrit 23.2 VOL% (35.7-47.0); Hemoglobin 7.6 GM/DL (12.0-16.0); Immature Granulocytes % 0.7 %; Immature Granulocytes Absolute 0.07 #; Lymphocytes # 2.3 10*3/uL (1.4-4.0); Lymphocytes % 22.3 % (21.3-54.2); Mean Corpuscular HGB Conc 32.8 GM/DL (32-36); Mean Corpuscular Hemoglobin 30 PG (27-34); Mean Corpuscular Volume 90.6 FL (87-102); Mean Platelet Volume 9.2 FL (9.6-12.0); Monocytes # 0.6 10*3/uL (0.11-0.8); Monocytes % 5.7 % (1.7-12.7); Neutrophils # 7.1 10*3/uL (1.4-7.4); Neutrophils % 69.1 % (38.7-73.9); Platelet Count 296 T/CUMM (130-400); Red Blood Count 2.56 MC/CUMM (3.8-5.5); Red Cell Distribution Width 14.9 % (9.3-17.3); White Blood Count 10.3 T/CUMM (4-12)
[2018-04-21] MEDS: LEVOTHYROXINE 125 MCG TABLET PO SCH (06:45)
[2018-04-21 08:08] LABS: Basophils % 0.3 % (0.0-0.8); Eosinophils # 0.2 10*3/uL (0.0-0.87); Eosinophils % 1.9 % (0.00-10.9); Hematocrit 25.6 VOL% (35.7-47.0); Hemoglobin 8.3 GM/DL (12.0-16.0); Immature Granulocytes % 0.5 %; Immature Granulocytes Absolute 0.06 #; Lymphocytes # 1.7 10*3/uL (1.4-4.0); Lymphocytes % 15.6 % (21.3-54.2); Mean Corpuscular HGB Conc 32.4 GM/DL (32-36); Mean Corpuscular Hemoglobin 30 PG (27-34); Mean Corpuscular Volume 91.1 FL (87-102); Mean Platelet Volume 9.3 FL (9.6-12.0); Monocytes # 0.5 10*3/uL (0.11-0.8); Monocytes % 4.8 % (1.7-12.7); Neutrophils # 8.5 10*3/uL (1.4-7.4); Neutrophils % 76.9 % (38.7-73.9); Platelet Count 288 T/CUMM (130-400); Red Blood Count 2.81 MC/CUMM (3.8-5.5); Red Cell Distribution Width 14.9 % (9.3-17.3); White Blood Count 11.1 T/CUMM (4-12)
[2018-04-21 09:09] LABS: Vitamin B12 477 PG/ML (211-911)
[2018-04-21 09:17] LABS: Sedimentation Rate-Westergren 48 MM/HR (0-30)
[2018-04-21] MEDS: INSULIN LISPRO 100 UNIT/ML SUBCUT SCH ×2 (09:31→11:41)
[2018-04-21] MEDS: FLUoxetine 20 MG CAPSULE PO SCH (09:31)
[2018-04-21] MEDS: OXYBUTYNIN 5 MG TABLET PO SCH (09:32)
[2018-04-21] MEDS: POTASSIUM CHLORIDE 10 MEQ TABLET PO SCH (09:32)
[2018-04-21] MEDS: FUROSEMIDE 40 MG TABLET PO SCH (09:32)
[2018-04-21] MEDS: ATORVASTATIN 40 MG TABLET PO SCH (09:32)
[2018-04-21] MEDS: LOSARTAN 50 MG TABLET PO SCH (09:32)
[2018-04-21] MEDS: CARVEDILOL 25 MG TABLET PO SCH (09:32)
[2018-04-21] MEDS: DOCUSATE SODIUM 100 MG CAPSULE PO SCH (09:32)
[2018-04-21] MEDS: FENOFIBRATE 145 MG TABLET PO SCH (09:33)
[2018-04-21] MEDS: PANTOPRAZOLE 40 MG VIAL IV SCH (09:33)
[2018-04-21] MEDS: ALPRAZolam 0.5 MG TABLET PO PRN (09:38)
[2018-04-21 11:57] VITALS: BP 85/51
[2018-04-21 12:13] LABS: Folate 6.4 NG/ML (5.4-24.0)
[2018-04-22 10:22] LABS: Hemoglobin A1 (Alkaline) 97.1 % (96.5-98.5); Hemoglobin A2 (Alkaline) 2.9 % (1.5-3.5)
== END 2018-04-21 12:21 | disposition home or self-care (01) | DRG 309 ==
LOC: EDBD → EDUNIT# → N.EDINP 17:29 → N.ED 17:29 → INTOOBSV 20:02 → OBSVTOIN 20:02 → N.2E 20:57
PROVIDERS: ADMIT Family Medicine; ATTEND Family Medicine

== ENCOUNTER 2019-08-24 10:14 | Inpatient (IN) ==
[2019-08-24] MEDS ORDERED: SODIUM CHLORIDE 0.9% 1,000 ML IV STA (10:42)
[2019-08-24 11:31] LABS: Basophils # 0.1 10*3/uL (0.0-0.2); Basophils % 1.6 % (0.0-0.8); Eosinophils # 0.2 10*3/uL (0.0-0.87); Eosinophils % 6.7 % (0.00-10.9); Hematocrit 31.2 VOL% (35.7-47.0); Hemoglobin 9.6 GM/DL (12.0-16.0); Immature Granulocytes % 0.3 %; Immature Granulocytes Absolute 0.01 #; Lymphocytes # 0.9 10*3/uL (1.4-4.0); Mean Corpuscular HGB Conc 30.8 GM/DL (32-36); Mean Corpuscular Volume 97.2 FL (87-102); Mean Platelet Volume 9.2 FL (9.6-12.0); Monocytes % 7.3 % (1.7-12.7); Neutrophils % 56.1 % (38.7-73.9); Platelet Count 238 T/CUMM (130-400); Red Blood Count 3.21 MC/CUMM (3.8-5.5); Red Cell Distribution Width 14.6 % (9.3-17.3); White Blood Count 3.1 T/CUMM (4-12)
[2019-08-24 11:38] LABS: Apearance,Urine CLEAR (Clear); Bilirubin,Urine Negative (Negative); Blood, Urine Negative (Negative); Glucose,Urine (UA) Negative (Negative); Ketones,Urine Negative (Negative); Nitrite,Urine Negative (Negative); Protein,Urine 100 MG/DL; RBC,Urine 1 /HPF (0-4); Urine Color Yellow (Yellow); Urine Specific Gravity 1.011 (1.001-1.035); Urine Urobilinogen < 2.0 EU/DL (0.2-1.0); WBC,Urine <1 /HPF (0-6)
[2019-08-24 11:41] LABS: INR 1.1; PT Patient Result 11.9 SECS (9.8-11.9); Partial Thromboplastin Time 25.9 SECS (23.9-33.8)
[2019-08-24 11:43] LABS: Barbiturates Screen,Urine Negative (Negative); Benzodiazepines Screen,Urine Positive (Negative); Cannabinoid Screen,Urine Negative (Negative); Opiate Screen,Urine Negative (Negative); Phencyclidine Screen,Urine Negative (Negative)
[2019-08-24 12:02] LABS: Alanine Aminotransferase 20 U/L (13-56); Albumin 3.4 G/DL (3.4-5.0); Alkaline Phosphatase 67 U/L (45-117); Aspartate Amino Transferase 32 U/L (0-37); Blood Urea Nitrogen 41 MG/DL (7-18); Calcium 9.5 MG/DL (8.5-10.1); Estimated Glom Filtration Rate 16 ML/MIN; Glucose 108 MG/DL (74-106); Osmolality,Calculated 293.1 MOS/KG (273-304); Thyroid Stimulating Hormone 0.456 uIU/ml (0.358-3.74); Total Protein 7.2 G/DL (6.4-8.3)
[2019-08-24] MEDS ORDERED: ACETAMINOPHEN 325 MG TABLET PO PRN (12:18)
[2019-08-24] MEDS ORDERED: ONDANSETRON 4 MG/2 ML VIAL IV PRN (12:18)
[2019-08-24 12:39] LABS: Sedimentation Rate-Westergren 30 MM/HR (0-30)
[2019-08-24] MEDS ORDERED: hydrALAZINE 20 MG/1 ML VIAL ONE (14:29)
[2019-08-24] MEDS ORDERED: hydrALAZINE 20 MG/1 ML VIAL IV STA (14:50)
[2019-08-24] MEDS: SODIUM CHLORIDE 0.9% 1,000 ML IV SCH (16:48)
[2019-08-24] MEDS: ENOXAPARIN 30 MG/0.3 ML SYRINGE SUBCUT SCH (16:48)
[2019-08-24] MEDS ORDERED: ALPRAZolam 0.5 MG TABLET PO PRN (17:37)
[2019-08-24] MEDS ORDERED: traZODone 50 MG TABLET PO PRN (17:37)
[2019-08-24] MEDS: DOCUSATE SODIUM 100 MG CAPSULE PO SCH (21:33)
[2019-08-24] MEDS: cloNIDine 0.1 MG TABLET PO SCH (21:33)
[2019-08-24] MEDS: GABAPENTIN 100 MG CAPSULE PO SCH (21:34)
[2019-08-24] MEDS: INSULIN LISPRO 100 UNIT/ML SUBCUT SCH (21:34)
[2019-08-24] MEDS: OXYBUTYNIN 5 MG TABLET PO SCH (21:34)
[2019-08-24] MEDS: carvediloL 25 MG TABLET PO SCH (21:34)
[2019-08-25] MEDS: SODIUM CHLORIDE 0.9% 1,000 ML IV SCH (01:48)
[2019-08-25 04:53] LABS: Eosinophils # 0.1 10*3/uL (0.0-0.87); Eosinophils % 1.9 % (0.00-10.9); Hematocrit 32.3 VOL% (35.7-47.0); Hemoglobin 10.1 GM/DL (12.0-16.0); Immature Granulocytes % 0.2 %; Immature Granulocytes Absolute 0.01 #; Lymphocytes # 0.9 10*3/uL (1.4-4.0); Lymphocytes % 22.3 % (21.3-54.2); Mean Corpuscular HGB Conc 31.3 GM/DL (32-36); Mean Corpuscular Volume 96.1 FL (87-102); Mean Platelet Volume 9.1 FL (9.6-12.0); Monocytes % 5.3 % (1.7-12.7); Neutrophils % 69.3 % (38.7-73.9); Platelet Count 246 T/CUMM (130-400); Red Blood Count 3.36 MC/CUMM (3.8-5.5); Red Cell Distribution Width 14.7 % (9.3-17.3); White Blood Count 4.1 T/CUMM (4-12)
[2019-08-25 05:30] LABS: Albumin 3.3 G/DL (3.4-5.0); Bilirubin,Total 0.7 MG/DL (0.2-1.0); Calcium 9.3 MG/DL (8.5-10.1); Osmolality,Calculated 298.6 MOS/KG (273-304); Risk Ratio 8.42; VLDL CHOLESTEROL 36.2 MG/DL
[2019-08-25] MEDS: LEVOTHYROXINE 125 MCG TABLET PO SCH (06:19)
[2019-08-25] MEDS: carvediloL 25 MG TABLET PO SCH ×2 (09:01→21:27)
[2019-08-25] MEDS: AMIODARONE 200 MG TABLET PO SCH (09:02)
[2019-08-25] MEDS: FLUoxetine 20 MG CAPSULE PO SCH (09:10)
[2019-08-25] MEDS: OXYBUTYNIN 5 MG TABLET PO SCH ×2 (09:10→21:27)
[2019-08-25] MEDS: PANTOPRAZOLE 40 MG TABLET PO SCH (09:11)
[2019-08-25] MEDS: FENOFIBRATE 145 MG TABLET PO SCH (09:11)
[2019-08-25] MEDS: FELODIPINE 5 MG TABLET PO SCH (09:11)
[2019-08-25] MEDS: GABAPENTIN 100 MG CAPSULE PO SCH ×2 (09:11→21:27)
[2019-08-25] MEDS: ATORVASTATIN 40 MG TABLET PO SCH (09:11)
[2019-08-25] MEDS: DOCUSATE SODIUM 100 MG CAPSULE PO SCH ×2 (09:12→21:27)
[2019-08-25] MEDS: INSULIN LISPRO 100 UNIT/ML SUBCUT SCH ×4 (09:31→21:28)
[2019-08-25] MEDS: SODIUM CHLOR 0.9% KCL 20 MEQ 20 MEQ/1,000 ML BAG IV SCH (13:55)
[2019-08-25] MEDS: FUROSEMIDE 40 MG TABLET PO SCH (14:01)
[2019-08-25] MEDS: ENOXAPARIN 30 MG/0.3 ML SYRINGE SUBCUT SCH (17:21)
[2019-08-25] MEDS: cloNIDine 0.1 MG TABLET PO SCH (21:27)
[2019-08-26] MEDS: SODIUM CHLOR 0.9% KCL 20 MEQ 20 MEQ/1,000 ML BAG IV SCH ×3 (03:15→16:30)
[2019-08-26 06:08] LABS: Basophils # 0.1 10*3/uL (0.0-0.2); Basophils % 0.5 % (0.0-0.8); Hematocrit 31.8 VOL% (35.7-47.0); Hemoglobin 9.7 GM/DL (12.0-16.0); Immature Granulocytes % 0.6 %; Immature Granulocytes Absolute 0.07 #; Lymphocytes % 7.9 % (21.3-54.2); Mean Corpuscular HGB Conc 30.5 GM/DL (32-36); Mean Corpuscular Volume 98.1 FL (87-102); Mean Platelet Volume 9.3 FL (9.6-12.0); Monocytes % 5.6 % (1.7-12.7); Neutrophils % 85.4 % (38.7-73.9); Platelet Count 217 T/CUMM (130-400); Red Blood Count 3.24 MC/CUMM (3.8-5.5); Red Cell Distribution Width 14.6 % (9.3-17.3); White Blood Count 12.3 T/CUMM (4-12)
[2019-08-26 06:31] LABS: Albumin 3.2 G/DL (3.4-5.0); Bilirubin,Total 1.3 MG/DL (0.2-1.0); Calcium 8.7 MG/DL (8.5-10.1); Osmolality,Calculated 300.7 MOS/KG (273-304); Total Protein 6.7 G/DL (6.4-8.3)
[2019-08-26] MEDS ORDERED: hydrALAZINE 20 MG/1 ML VIAL IV PRN (06:35)
[2019-08-26] MEDS: cloNIDine 0.1 MG TABLET PO SCH ×4 (07:04→21:38)
[2019-08-26] MEDS: LEVOTHYROXINE 125 MCG TABLET PO SCH (07:04)
[2019-08-26] MEDS: INSULIN LISPRO 100 UNIT/ML SUBCUT SCH ×4 (08:46→21:39)
[2019-08-26] MEDS ORDERED: FUROSEMIDE 20 MG TABLET ONE (09:41)
[2019-08-26] MEDS: DOCUSATE SODIUM 100 MG CAPSULE PO SCH ×2 (11:07→21:38)
[2019-08-26] MEDS: AMIODARONE 200 MG TABLET PO SCH (11:07)
[2019-08-26] MEDS: carvediloL 25 MG TABLET PO SCH ×2 (11:08→21:38)
[2019-08-26] MEDS: OXYBUTYNIN 5 MG TABLET PO SCH ×2 (11:09→21:38)
[2019-08-26] MEDS: FUROSEMIDE 40 MG TABLET PO SCH (11:09)
[2019-08-26] MEDS: GABAPENTIN 100 MG CAPSULE PO SCH ×2 (11:10→21:38)
[2019-08-26] MEDS: FELODIPINE 5 MG TABLET PO SCH (11:10)
[2019-08-26] MEDS: ATORVASTATIN 40 MG TABLET PO SCH (11:10)
[2019-08-26] MEDS: PANTOPRAZOLE 40 MG TABLET PO SCH (11:10)
[2019-08-26] MEDS: FLUoxetine 20 MG CAPSULE PO SCH (11:10)
[2019-08-26] MEDS: FENOFIBRATE 145 MG TABLET PO SCH (11:10)
[2019-08-26] MEDS: ENOXAPARIN 30 MG/0.3 ML SYRINGE SUBCUT SCH (17:48)
[2019-08-26] MEDS ORDERED: POTASSIUM CHLORIDE 20 MEQ TABLET PO ONE (22:30)
[2019-08-26] MEDS: POTASSIUM CHLORIDE 20 MEQ TABLET PO PRN (22:50)
[2019-08-26] MEDS: cefTRIAXone 500 MG in SYRINGE 1 EACH IV SCH (22:50)
[2019-08-27] MEDS: POTASSIUM CHLORIDE 20 MEQ TABLET PO PRN ×3 (01:13→05:31)
[2019-08-27 04:54] LABS: Basophils # 0.1 10*3/uL (0.0-0.2); Basophils % 0.6 % (0.0-0.8); Eosinophils # 0.1 10*3/uL (0.0-0.87); Eosinophils % 1.8 % (0.00-10.9); Hematocrit 26.4 VOL% (35.7-47.0); Hemoglobin 8.2 GM/DL (12.0-16.0); Immature Granulocytes % 0.4 %; Immature Granulocytes Absolute 0.03 #; Lymphocytes # 1.3 10*3/uL (1.4-4.0); Mean Corpuscular HGB Conc 31.1 GM/DL (32-36); Mean Corpuscular Volume 97.1 FL (87-102); Mean Platelet Volume 9.8 FL (9.6-12.0); Neutrophils % 74.2 % (38.7-73.9); Platelet Count 163 T/CUMM (130-400); Red Blood Count 2.72 MC/CUMM (3.8-5.5); Red Cell Distribution Width 13.8 % (9.3-17.3); White Blood Count 7.8 T/CUMM (4-12)
[2019-08-27] MEDS: LEVOTHYROXINE 125 MCG TABLET PO SCH (05:31)
[2019-08-27] MEDS: SODIUM CHLOR 0.9% KCL 20 MEQ 20 MEQ/1,000 ML BAG IV SCH ×2 (05:31→19:32)
[2019-08-27 05:45] LABS: Albumin 2.5 G/DL (3.4-5.0); Bilirubin,Total 0.9 MG/DL (0.2-1.0); Calcium 8.1 MG/DL (8.5-10.1); Osmolality,Calculated 289.4 MOS/KG (273-304); Total Protein 5.5 G/DL (6.4-8.3)
[2019-08-27] MEDS: cloNIDine 0.1 MG TABLET PO SCH ×3 (09:11→21:28)
[2019-08-27] MEDS: AMIODARONE 200 MG TABLET PO SCH (09:11)
[2019-08-27] MEDS: DOCUSATE SODIUM 100 MG CAPSULE PO SCH ×2 (09:11→21:28)
[2019-08-27] MEDS: ATORVASTATIN 40 MG TABLET PO SCH (09:12)
[2019-08-27] MEDS: carvediloL 25 MG TABLET PO SCH ×2 (09:12→21:27)
[2019-08-27] MEDS: GABAPENTIN 100 MG CAPSULE PO SCH ×2 (09:12→21:28)
[2019-08-27] MEDS: FUROSEMIDE 40 MG TABLET PO SCH (09:12)
[2019-08-27] MEDS: OXYBUTYNIN 5 MG TABLET PO SCH ×2 (09:12→21:27)
[2019-08-27] MEDS: PANTOPRAZOLE 40 MG TABLET PO SCH (09:13)
[2019-08-27] MEDS: FLUoxetine 20 MG CAPSULE PO SCH (09:13)
[2019-08-27] MEDS: FELODIPINE 5 MG TABLET PO SCH (09:13)
[2019-08-27] MEDS: FENOFIBRATE 145 MG TABLET PO SCH (09:13)
[2019-08-27] MEDS: INSULIN LISPRO 100 UNIT/ML SUBCUT SCH ×4 (09:55→21:27)
[2019-08-27] MEDS ORDERED: LOPERAMIDE 2 MG CAPSULE PO PRN (12:04)
[2019-08-27] MEDS: ENOXAPARIN 30 MG/0.3 ML SYRINGE SUBCUT SCH (17:24)
[2019-08-27] MEDS: cefTRIAXone 500 MG in SYRINGE 1 EACH IV SCH (21:28)
[2019-08-28 05:52] LABS: Basophils # 0.1 10*3/uL (0.0-0.2); Eosinophils # 0.2 10*3/uL (0.0-0.87); Eosinophils % 3.1 % (0.00-10.9); Hematocrit 26.3 VOL% (35.7-47.0); Hemoglobin 8.2 GM/DL (12.0-16.0); Immature Granulocytes % 0.3 %; Immature Granulocytes Absolute 0.02 #; Lymphocytes # 1.2 10*3/uL (1.4-4.0); Lymphocytes % 19.6 % (21.3-54.2); Mean Corpuscular HGB Conc 31.2 GM/DL (32-36); Mean Corpuscular Volume 98.5 FL (87-102); Mean Platelet Volume 9.9 FL (9.6-12.0); Monocytes % 5.7 % (1.7-12.7); Neutrophils % 70.3 % (38.7-73.9); Platelet Count 166 T/CUMM (130-400); Red Blood Count 2.67 MC/CUMM (3.8-5.5); Red Cell Distribution Width 13.7 % (9.3-17.3); White Blood Count 6.1 T/CUMM (4-12)
[2019-08-28] MEDS: LEVOTHYROXINE 125 MCG TABLET PO SCH (06:14)
[2019-08-28 06:21] LABS: Calcium 8.2 MG/DL (8.5-10.1)
[2019-08-28] MEDS ORDERED: CHOLECALCIFEROL 5,000 UNIT TABLET PO SCH (09:00)
[2019-08-28] MEDS ORDERED: FERROUS SULFATE 325 MG TABLET PO SCH (09:00)
[2019-08-28] MEDS: GABAPENTIN 100 MG CAPSULE PO SCH (09:49)
[2019-08-28] MEDS: FELODIPINE 5 MG TABLET PO SCH (09:49)
[2019-08-28] MEDS: ATORVASTATIN 40 MG TABLET PO SCH (09:49)
[2019-08-28] MEDS: FLUoxetine 20 MG CAPSULE PO SCH (09:49)
[2019-08-28] MEDS: FENOFIBRATE 145 MG TABLET PO SCH (09:49)
[2019-08-28] MEDS: PANTOPRAZOLE 40 MG TABLET PO SCH (09:49)
[2019-08-28] MEDS: AMIODARONE 200 MG TABLET PO SCH (09:49)
[2019-08-28] MEDS: carvediloL 25 MG TABLET PO SCH (09:49)
[2019-08-28] MEDS: DOCUSATE SODIUM 100 MG CAPSULE PO SCH (09:50)
[2019-08-28] MEDS: OXYBUTYNIN 5 MG TABLET PO SCH (09:50)
[2019-08-28] MEDS: FUROSEMIDE 40 MG TABLET PO SCH (09:50)
[2019-08-28] MEDS ORDERED: TUBERCULIN SKIN TEST 0.1 ML SYRINGE INTRADERM ONE (09:51)
[2019-08-28] MEDS: INSULIN LISPRO 100 UNIT/ML SUBCUT SCH ×2 (09:51→12:53)
[2019-08-28] MEDS: SODIUM CHLOR 0.9% KCL 20 MEQ 20 MEQ/1,000 ML BAG IV SCH (11:17)
[2019-08-28 11:29] VITALS: BP 170/73
== END 2019-08-28 13:53 | disposition swing bed (61) | DRG 884 ==
LOC: N.ED 10:14 → INTOOBSV 12:18 → N.EDINP 12:18 → N.3E 14:45
PROVIDERS: ADMIT Family Medicine; ATTEND Family Medicine

== ENCOUNTER 2020-08-09 16:07 | Inpatient (IN) ==
[2020-08-09] MEDS ORDERED: ONDANSETRON 4 MG/2 ML VIAL IV STA (16:35)
[2020-08-09] MEDS ORDERED: MORPHINE 4 MG/1 ML VIAL IV STA (16:35)
[2020-08-09 16:57] LABS: Basophils # 0.1 10*3/uL (0.0-0.2); Basophils % 1.1 % (0.0-0.8); Eosinophils # 0.2 10*3/uL (0.0-0.87); Eosinophils % 3.2 % (0.00-10.9); Hematocrit 26.1 VOL% (35.7-47.0); Hemoglobin 8.3 GM/DL (12.0-16.0); Immature Granulocytes % 0.6 %; Immature Granulocytes Absolute 0.03 #; Lymphocytes # 1.4 10*3/uL (1.4-4.0); Lymphocytes % 30.1 % (21.3-54.2); Mean Corpuscular HGB Conc 31.8 GM/DL (32-36); Mean Corpuscular Volume 95.3 FL (87-102); Mean Platelet Volume 9.8 FL (9.6-12.0); Monocytes % 8.4 % (1.7-12.7); Neutrophils % 56.6 % (38.7-73.9); Platelet Count 209 T/CUMM (130-400); Red Blood Count 2.74 MC/CUMM (3.8-5.5); Red Cell Distribution Width 17.2 % (9.3-17.3); White Blood Count 4.6 T/CUMM (4-12)
[2020-08-09 17:15] LABS: INR 1.1; Partial Thromboplastin Time 21.9 SECS (23.9-33.8)
[2020-08-09 17:20] LABS: Alanine Aminotransferase 26 U/L (13-56); Albumin 3.3 G/DL (3.4-5.0); Alkaline Phosphatase 76 U/L (45-117); Aspartate Amino Transferase 31 U/L (0-37); Bilirubin,Total < 0.39 MG/DL (0.2-1.0); Blood Urea Nitrogen 59 MG/DL (7-18); Calcium 8.4 MG/DL (8.5-10.1); Carbon Dioxide 27 MMOL/L (21-32); Estimated Glom Filtration Rate 10 ML/MIN; Glucose 140 MG/DL (74-106); Osmolality,Calculated 295.5 MOS/KG (273-304); Potassium 4.8 MMOL/L (3.5-5.1); Sodium 139 MMOL/L (136-145); Total Protein 6.2 G/DL (6.4-8.2)
[2020-08-09] MEDS ORDERED: ACETAMINOPHEN 325 MG TABLET PO PRN (17:59)
[2020-08-09] MEDS ORDERED: ORPHENADRINE 60 MG/2 ML VIAL IV ONE (18:53)
[2020-08-09] MEDS ORDERED: HYDROmorphone 2 MG/1 ML VIAL IV STA (18:53)
[2020-08-09] MEDS ORDERED: MAGNESIUM HYDROXIDE SUSP 30 ML UDCUP PO PRN (19:51)
[2020-08-09] MEDS ORDERED: diphenhydrAMINE CAP 25 MG CAPSULE PO PRN (19:57)
[2020-08-09] MEDS: SODIUM CHLORIDE 0.9% 1,000 ML IV SCH (21:28)
[2020-08-09] MEDS: carvediloL 25 MG TABLET PO SCH (21:28)
[2020-08-09] MEDS: cloNIDine 0.1 MG TABLET PO SCH (21:28)
[2020-08-09] MEDS: DOCUSATE SODIUM 100 MG CAPSULE PO SCH (21:28)
[2020-08-09] MEDS ORDERED: ONDANSETRON 4 MG TABLET PO PRN (22:15)
[2020-08-09] MEDS: MORPHINE 4 MG/1 ML VIAL IV PRN (22:39)
[2020-08-09] MEDS: ONDANSETRON 4 MG/2 ML VIAL IV PRN (22:40)
[2020-08-10] MEDS: MORPHINE 4 MG/1 ML VIAL IV PRN ×2 (02:19→06:13)
[2020-08-10 03:33] LABS: Bacteria,Urine Occasional /HPF (Few); Bilirubin,Urine Negative (Negative); Blood, Urine Negative (Negative); Glucose,Urine (UA) Negative (Negative); Hyaline Casts,Urine 4 /LPF (0-3); Ketones,Urine Negative (Negative); Mucus,Urine Occasional /LPF (Occasional); Nitrite,Urine Negative (Negative); Protein,Urine 100 MG/DL; RBC,Urine 3 /HPF (0-4); Squamous Epithelial Cell,Urine Occasional /HPF (0-10); Urine Appearance Slightly Hazy (Clear); Urine Color Yellow (Yellow); Urine Specific Gravity 1.011 (1.001-1.035); Urine Urobilinogen < 2.0 EU/DL (0.2-1.0)
[2020-08-10] MEDS: SODIUM CHLORIDE 0.9% 1,000 ML IV SCH ×4 (06:12→23:02)
[2020-08-10] MEDS: ONDANSETRON 4 MG/2 ML VIAL IV PRN (06:13)
[2020-08-10] MEDS ORDERED: PROMETHAZINE INJ 25 MG in SODIUM CHLORIDE 0.9% 50 ML IV PRN (06:34)
[2020-08-10] MEDS ORDERED: ONDANSETRON 4 MG/2 ML VIAL IV PRN (06:34)
[2020-08-10] MEDS ORDERED: HYDROmorphone 2 MG/1 ML VIAL IV PRN (06:34)
[2020-08-10] MEDS ORDERED: MEPERIDINE 25 MG/1 ML VIAL IV PRN (06:34)
[2020-08-10] MEDS ORDERED: diphenhydrAMINE 50 MG/1 ML VIAL IV PRN (06:34)
[2020-08-10] MEDS ORDERED: SODIUM CHLORIDE 0.9% 1,000 ML IV PRN (07:00)
[2020-08-10 07:04] LABS: Basophils # 0.1 10*3/uL (0.0-0.2); Basophils % 0.8 % (0.0-0.8); Eosinophils # 0.1 10*3/uL (0.0-0.87); Hematocrit 23.4 VOL% (35.7-47.0); Hemoglobin 7.5 GM/DL (12.0-16.0); Immature Granulocytes % 0.4 %; Immature Granulocytes Absolute 0.03 #; Lymphocytes # 1.2 10*3/uL (1.4-4.0); Lymphocytes % 16.3 % (21.3-54.2); Mean Corpuscular HGB Conc 32.1 GM/DL (32-36); Mean Corpuscular Volume 95.9 FL (87-102); Mean Platelet Volume 10.2 FL (9.6-12.0); Monocytes % 9.8 % (1.7-12.7); Neutrophils % 70.7 % (38.7-73.9); Platelet Count 185 T/CUMM (130-400); Red Blood Count 2.44 MC/CUMM (3.8-5.5); Red Cell Distribution Width 17.1 % (9.3-17.3); White Blood Count 7.1 T/CUMM (4-12)
[2020-08-10] MEDS: carvediloL 25 MG TABLET PO SCH ×2 (07:13→20:55)
[2020-08-10] MEDS: AMIODARONE 200 MG TABLET PO SCH ×2 (07:13→08:11)
[2020-08-10] MEDS: LEVOTHYROXINE 125 MCG TABLET PO SCH (07:13)
[2020-08-10 07:21] LABS: Albumin 3.1 G/DL (3.4-5.0); Bilirubin,Total 0.9 MG/DL (0.2-1.0); Calcium 8.3 MG/DL (8.5-10.1); Osmolality,Calculated 295.3 MOS/KG (273-304); Potassium 4.4 MMOL/L (3.5-5.1); Total Protein 5.9 G/DL (6.4-8.2)
[2020-08-10] MEDS: FELODIPINE 5 MG TABLET PO SCH (08:20)
[2020-08-10] MEDS ORDERED: CALCIUM CHLORIDE 1,000 MG/10 ML VIAL IV ONE (09:39)
[2020-08-10] MEDS ORDERED: ALBUMIN 5% 12.5 GM/250 ML VIAL IV ONE (09:39)
[2020-08-10] MEDS ORDERED: DEXMEDETOMIDINE 200 MCG/2 ML VIAL ONE (09:41)
[2020-08-10] MEDS ORDERED: FUROSEMIDE 20 MG/2 ML VIAL ONE (10:59)
[2020-08-10] MEDS ORDERED: BUPIVACAINE SPINAL 0.75% 2 ML AMP SPINAL ONE (10:59)
[2020-08-10] MEDS ORDERED: SODIUM CHLORIDE 0.9% 1,000 ML IV ONE (10:59)
[2020-08-10] MEDS ORDERED: ceFAZolin 1,000 MG VIAL ONE (10:59)
[2020-08-10] MEDS ORDERED: BUPIVACAINE 0.5% 50 ML VIAL ONE (11:20)
[2020-08-10] MEDS: ATORVASTATIN 40 MG TABLET PO SCH (12:34)
[2020-08-10] MEDS: DOCUSATE SODIUM 100 MG CAPSULE PO SCH ×2 (12:34→20:56)
[2020-08-10] MEDS: PANTOPRAZOLE 40 MG TABLET PO SCH (12:34)
[2020-08-10] MEDS: FLUoxetine 20 MG CAPSULE PO SCH (12:35)
[2020-08-10 12:57] LABS: Basophils # 0.1 10*3/uL (0.0-0.2); Basophils % 0.7 % (0.0-0.8); Eosinophils # 0.2 10*3/uL (0.0-0.87); Eosinophils % 1.9 % (0.00-10.9); Hematocrit 29.7 VOL% (35.7-47.0); Hemoglobin 9.1 GM/DL (12.0-16.0); Immature Granulocytes % 0.4 %; Immature Granulocytes Absolute 0.03 #; Lymphocytes % 12.6 % (21.3-54.2); Mean Corpuscular HGB Conc 30.6 GM/DL (32-36); Mean Corpuscular Volume 99.3 FL (87-102); Mean Platelet Volume 9.8 FL (9.6-12.0); Monocytes % 9.1 % (1.7-12.7); Neutrophils % 75.3 % (38.7-73.9); Platelet Count 166 T/CUMM (130-400); Red Blood Count 2.99 MC/CUMM (3.8-5.5); Red Cell Distribution Width 15.9 % (9.3-17.3)
[2020-08-10] MEDS: cloNIDine 0.1 MG TABLET PO SCH (20:56)
[2020-08-10] MEDS: traZODone 50 MG TABLET PO SCH (20:58)
[2020-08-11] MEDS: MORPHINE 4 MG/1 ML VIAL IV PRN ×2 (00:08→05:11)
[2020-08-11] MEDS: ONDANSETRON 4 MG/2 ML VIAL IV PRN (00:09)
[2020-08-11] MEDS: oxyCODONE/ACETAMINOPHEN 5-325 MG TABLET PO PRN ×4 (03:13→22:15)
[2020-08-11] MEDS ORDERED: MAGNESIUM HYDROXIDE SUSP 30 ML UDCUP PO PRN (06:00)
[2020-08-11] MEDS: LEVOTHYROXINE 125 MCG TABLET PO SCH (06:03)
[2020-08-11 06:58] LABS: Basophils % 0.5 % (0.0-0.8); Eosinophils # 0.1 10*3/uL (0.0-0.87); Eosinophils % 0.9 % (0.00-10.9); Hematocrit 20.9 VOL% (35.7-47.0); Immature Granulocytes % 0.4 %; Immature Granulocytes Absolute 0.03 #; Lymphocytes # 1.2 10*3/uL (1.4-4.0); Lymphocytes % 16.5 % (21.3-54.2); Mean Corpuscular HGB Conc 31.6 GM/DL (32-36); Mean Corpuscular Volume 98.6 FL (87-102); Mean Platelet Volume 10.3 FL (9.6-12.0); Monocytes % 11.9 % (1.7-12.7); Neutrophils % 69.8 % (38.7-73.9); Platelet Count 125 T/CUMM (130-400); Red Blood Count 2.12 MC/CUMM (3.8-5.5); Red Cell Distribution Width 15.8 % (9.3-17.3); White Blood Count 7.5 T/CUMM (4-12)
[2020-08-11 07:00] LABS: Hemoglobin 6.6 GM/DL (12.0-16.0)
[2020-08-11 07:02] LABS: Calcium 7.9 MG/DL (8.5-10.1); Osmolality,Calculated 285.8 MOS/KG (273-304)
[2020-08-11] MEDS: FELODIPINE 5 MG TABLET PO SCH (09:41)
[2020-08-11] MEDS: FLUoxetine 20 MG CAPSULE PO SCH (09:42)
[2020-08-11] MEDS: ATORVASTATIN 40 MG TABLET PO SCH (09:42)
[2020-08-11] MEDS: AMIODARONE 200 MG TABLET PO SCH (09:42)
[2020-08-11] MEDS: carvediloL 25 MG TABLET PO SCH ×2 (09:42→20:22)
[2020-08-11] MEDS: DOCUSATE SODIUM 100 MG CAPSULE PO SCH ×2 (09:42→20:22)
[2020-08-11] MEDS: PANTOPRAZOLE 40 MG TABLET PO SCH (09:42)
[2020-08-11] MEDS: SODIUM CHLORIDE 0.9% 1,000 ML IV SCH (09:43)
[2020-08-11] MEDS ORDERED: SODIUM CHLORIDE 0.9% 1,000 ML IV PRN ×2 (13:51→14:44)
[2020-08-11] MEDS: ASPIRIN 325 MG TABLET PO SCH (15:28)
[2020-08-11] MEDS: cloNIDine 0.1 MG TABLET PO SCH (20:22)
[2020-08-11] MEDS: traZODone 50 MG TABLET PO SCH (20:22)
[2020-08-12] MEDS: SODIUM CHLORIDE 0.9% 1,000 ML IV SCH (03:45)
[2020-08-12 05:46] LABS: Basophils % 0.4 % (0.0-0.8); Eosinophils # 0.1 10*3/uL (0.0-0.87); Eosinophils % 0.8 % (0.00-10.9); Hematocrit 28.3 VOL% (35.7-47.0); Immature Granulocytes % 0.5 %; Immature Granulocytes Absolute 0.05 #; Lymphocytes # 0.9 10*3/uL (1.4-4.0); Mean Corpuscular HGB Conc 32.5 GM/DL (32-36); Mean Corpuscular Volume 96.3 FL (87-102); Mean Platelet Volume 11.1 FL (9.6-12.0); Monocytes % 9.7 % (1.7-12.7); Neutrophils % 79.6 % (38.7-73.9); Platelet Count 132 T/CUMM (130-400); Red Cell Distribution Width 15.1 % (9.3-17.3); White Blood Count 9.6 T/CUMM (4-12)
[2020-08-12 05:57] LABS: Red Blood Count 2.94 MC/CUMM (3.8-5.5)
[2020-08-12 05:58] LABS: Hemoglobin 9.2 GM/DL (12.0-16.0)
[2020-08-12 06:06] LABS: Hypochromasia Slight; Microcytosis 1+
[2020-08-12 06:07] LABS: Platelet Estimate Adequate
[2020-08-12 06:18] LABS: Albumin 2.5 G/DL (3.4-5.0); Bilirubin,Total 1.3 MG/DL (0.2-1.0); Calcium 8.2 MG/DL (8.5-10.1); Osmolality,Calculated 285.8 MOS/KG (273-304); Potassium 3.6 MMOL/L (3.5-5.1); Total Protein 5.4 G/DL (6.4-8.2)
[2020-08-12] MEDS: LEVOTHYROXINE 125 MCG TABLET PO SCH (06:44)
[2020-08-12] MEDS ORDERED: ALPRAZolam 0.5 MG TABLET PO PRN (07:39)
[2020-08-12] MEDS: ASPIRIN 325 MG TABLET PO SCH (08:21)
[2020-08-12] MEDS: FUROSEMIDE 80 MG TABLET PO SCH (08:21)
[2020-08-12] MEDS: FLUoxetine 20 MG CAPSULE PO SCH (08:21)
[2020-08-12] MEDS: AMIODARONE 200 MG TABLET PO SCH (08:21)
[2020-08-12] MEDS: carvediloL 25 MG TABLET PO SCH ×2 (08:21→20:14)
[2020-08-12] MEDS: DOCUSATE SODIUM 100 MG CAPSULE PO SCH ×2 (08:22→20:13)
[2020-08-12] MEDS: FENOFIBRATE 145 MG TABLET PO SCH (08:22)
[2020-08-12] MEDS: PANTOPRAZOLE 40 MG TABLET PO SCH (08:22)
[2020-08-12] MEDS: FELODIPINE 5 MG TABLET PO SCH (08:22)
[2020-08-12] MEDS: CHOLECALCIFEROL 5,000 UNIT TABLET PO SCH (08:22)
[2020-08-12] MEDS: FERROUS SULFATE 325 MG TABLET PO SCH (08:22)
[2020-08-12] MEDS: cefTRIAXone 1,000 MG in SODIUM CHLORIDE 0.9% 100 ML IV SCH (08:28)
[2020-08-12] MEDS: oxyCODONE/ACETAMINOPHEN 5-325 MG TABLET PO PRN ×2 (08:28→14:08)
[2020-08-12] MEDS: ATORVASTATIN 40 MG TABLET PO SCH (08:29)
[2020-08-12] MEDS: MAGNESIUM SULF INJ 2 GM, POTASSIUM CHLORIDE INJ 20 MEQ in SODIUM CHLORIDE 0.9% 1,000 ML IV SCH (09:55)
[2020-08-12] MEDS: traZODone 50 MG TABLET PO SCH (20:13)
[2020-08-12] MEDS: cloNIDine 0.1 MG TABLET PO SCH (20:13)
[2020-08-13] MEDS: MAGNESIUM SULF INJ 2 GM, POTASSIUM CHLORIDE INJ 20 MEQ in SODIUM CHLORIDE 0.9% 1,000 ML IV SCH ×2 (05:41→06:19)
[2020-08-13 05:45] LABS: Basophils % 0.3 % (0.0-0.8); Eosinophils % 0.2 % (0.00-10.9); Hematocrit 28.4 VOL% (35.7-47.0); Hemoglobin 9.3 GM/DL (12.0-16.0); Immature Granulocytes % 0.6 %; Immature Granulocytes Absolute 0.06 #; Lymphocytes # 0.7 10*3/uL (1.4-4.0); Lymphocytes % 7.1 % (21.3-54.2); Mean Corpuscular HGB Conc 32.7 GM/DL (32-36); Mean Corpuscular Volume 94.7 FL (87-102); Mean Platelet Volume 9.9 FL (9.6-12.0); Neutrophils % 84.8 % (38.7-73.9); Platelet Count 183 T/CUMM (130-400); Red Cell Distribution Width 15.2 % (9.3-17.3); White Blood Count 9.3 T/CUMM (4-12)
[2020-08-13 06:04] LABS: Albumin 2.4 G/DL (3.4-5.0); Bilirubin,Total 1.3 MG/DL (0.2-1.0); Calcium 8.7 MG/DL (8.5-10.1); Osmolality,Calculated 292.4 MOS/KG (273-304); Potassium 4.5 MMOL/L (3.5-5.1); Total Protein 5.7 G/DL (6.4-8.2)
[2020-08-13] MEDS: LEVOTHYROXINE 125 MCG TABLET PO SCH (07:24)
[2020-08-13] MEDS: ONDANSETRON 4 MG/2 ML VIAL IV PRN (07:29)
[2020-08-13] MEDS: ASPIRIN 325 MG TABLET PO SCH (08:44)
[2020-08-13] MEDS: AMIODARONE 200 MG TABLET PO SCH (08:44)
[2020-08-13] MEDS: CHOLECALCIFEROL 5,000 UNIT TABLET PO SCH (08:44)
[2020-08-13] MEDS: carvediloL 25 MG TABLET PO SCH (08:44)
[2020-08-13] MEDS: FUROSEMIDE 80 MG TABLET PO SCH (08:44)
[2020-08-13] MEDS: DOCUSATE SODIUM 100 MG CAPSULE PO SCH (08:44)
[2020-08-13] MEDS: FLUoxetine 20 MG CAPSULE PO SCH (08:45)
[2020-08-13] MEDS: FENOFIBRATE 145 MG TABLET PO SCH (08:45)
[2020-08-13] MEDS: FELODIPINE 5 MG TABLET PO SCH (08:45)
[2020-08-13] MEDS: ATORVASTATIN 40 MG TABLET PO SCH (08:45)
[2020-08-13] MEDS: FERROUS SULFATE 325 MG TABLET PO SCH (08:45)
[2020-08-13] MEDS: PANTOPRAZOLE 40 MG TABLET PO SCH (08:45)
[2020-08-13] MEDS: cefTRIAXone 1,000 MG in SODIUM CHLORIDE 0.9% 100 ML IV SCH (08:45)
[2020-08-13] MEDS ORDERED: cloNIDine 0.1 MG TABLET PO SCH (09:00)
[2020-08-13] MEDS ORDERED: CEFUROXIME 500 MG TABLET PO SCH (09:00)
[2020-08-13 11:12] VITALS: BP 131/63
== END 2020-08-13 14:10 | DRG 481 ==
LOC: EDBD → EDUNIT# → N.ED 16:07 → N.EDINP 18:07 → N.3E 18:45
PROVIDERS: ADMIT Family Medicine; ATTEND Family Medicine

== ENCOUNTER 2021-04-30 10:06 | Inpatient (IN) ==
[2021-04-30 12:08] LABS: Basophils # 0.1 10*3/uL (0.0-0.2); Basophils % 0.8 % (0.0-0.8); Eosinophils # 0.1 10*3/uL (0.0-0.87); Eosinophils % 0.9 % (0.00-10.9); Hemoglobin 8.5 GM/DL (12.0-16.0); Immature Granulocytes % 0.6 %; Immature Granulocytes Absolute 0.04 #; Lymphocytes # 1.2 10*3/uL (1.4-4.0); Lymphocytes % 18.5 % (21.3-54.2); Mean Corpuscular HGB Conc 32.7 GM/DL (32-36); Mean Corpuscular Volume 93.9 FL (87-102); Mean Platelet Volume 10.3 FL (9.6-12.0); Monocytes % 5.7 % (1.7-12.7); Neutrophils % 73.5 % (38.7-73.9); Platelet Count 198 T/CUMM (130-400); Red Blood Count 2.77 MC/CUMM (3.8-5.5); Red Cell Distribution Width 15.2 % (9.3-17.3); White Blood Count 6.5 T/CUMM (4-12)
[2021-04-30 12:29] LABS: Albumin 3.2 G/DL (3.4-5.0); Bilirubin,Total 0.8 MG/DL (0.20-1.00); Calcium 8.6 MG/DL (8.5-10.1); Osmolality,Calculated 298.7 MOS/KG (273-304); Potassium 3.8 MMOL/L (3.5-5.1); Total Protein 6.5 G/DL (6.4-8.2)
[2021-04-30] MEDS ORDERED: SODIUM CHLORIDE 0.9% 500 ML IV STA (12:52)
[2021-04-30 13:14] LABS: Bilirubin,Urine Negative (Negative); Blood, Urine Moderate mg/dL (Negative); Glucose,Urine (UA) 50 mg/dL (Negative); Ketones,Urine Negative (Negative); Nitrite,Urine Negative (Negative); Protein,Urine 100 MG/DL; RBC,Urine 53 /HPF (0-4); Squamous Epithelial Cell,Urine Occasional /HPF (0-10); Urine Appearance CLOUDY (Clear); Urine Color Yellow (Yellow); Urine Specific Gravity 1.011 (1.001-1.035); Urine Urobilinogen < 2.0 EU/DL (<2.0)
[2021-04-30] MEDS ORDERED: cefTRIAXone 1,000 MG in SODIUM CHLORIDE 0.9% 100 ML IV STA (13:15)
[2021-04-30] MEDS ORDERED: DEXTROSE 10% 250 ML BAG IV PRN ×2 (14:25→16:01)
[2021-04-30] MEDS ORDERED: GLUCAGON 1 MG VIAL IM PRN ×2 (14:25→16:01)
[2021-04-30] MEDS ORDERED: ACETAMINOPHEN 325 MG TABLET PO PRN (16:01)
[2021-04-30] MEDS ORDERED: ONDANSETRON 4 MG/2 ML VIAL IV PRN (16:01)
[2021-04-30] MEDS ORDERED: MORPHINE 2 MG/1 ML SYRINGE IV PRN (16:01)
[2021-04-30 16:31] LABS: Folate 10.84 NG/ML (5.38-24.0)
[2021-04-30 16:33] LABS: % Iron Saturation 28.2 % (18-50)
[2021-04-30] MEDS: HEPARIN 5,000 UNIT/1 ML VIAL SUBCUT SCH (17:08)
[2021-04-30] MEDS: SODIUM CHLORIDE 0.9% 1,000 ML IV SCH (17:08)
[2021-04-30] MEDS: INSULIN LISPRO 100 UNIT/ML SUBCUT SCH ×2 (17:09→21:14)
[2021-04-30] MEDS: cefTRIAXone 1,000 MG in SODIUM CHLORIDE 0.9% 100 ML IV SCH (22:22)
[2021-04-30] MEDS ORDERED: cloNIDine 0.1 MG TABLET PO ONE (23:03)
[2021-05-01] MEDS: SODIUM CHLORIDE 0.9% 1,000 ML IV SCH ×2 (02:35→13:36)
[2021-05-01] MEDS: HEPARIN 5,000 UNIT/1 ML VIAL SUBCUT SCH ×2 (04:24→16:48)
[2021-05-01 05:38] LABS: Basophils # 0.1 10*3/uL (0.0-0.2); Basophils % 0.9 % (0.0-0.8); Eosinophils # 0.1 10*3/uL (0.0-0.87); Eosinophils % 1.4 % (0.00-10.9); Hematocrit 26.9 VOL% (35.7-47.0); Hemoglobin 8.7 GM/DL (12.0-16.0); Immature Granulocytes % 0.5 %; Immature Granulocytes Absolute 0.03 #; Lymphocytes % 17.8 % (21.3-54.2); Mean Corpuscular HGB Conc 32.3 GM/DL (32-36); Mean Corpuscular Volume 95.1 FL (87-102); Neutrophils % 72.4 % (38.7-73.9); Platelet Count 187 T/CUMM (130-400); Red Blood Count 2.83 MC/CUMM (3.8-5.5); White Blood Count 5.7 T/CUMM (4-12)
[2021-05-01 06:18] LABS: Albumin 3.1 G/DL (3.4-5.0); Bilirubin,Total 0.7 MG/DL (0.20-1.00); Calcium 9.1 MG/DL (8.5-10.1); Osmolality,Calculated 297.4 MOS/KG (273-304); Potassium 4.3 MMOL/L (3.5-5.1); Total Protein 6.8 G/DL (6.4-8.2)
[2021-05-01] MEDS ORDERED: cloNIDine 0.1 MG TABLET PO SCH (09:00)
[2021-05-01] MEDS: PANTOPRAZOLE 40 MG TABLET PO SCH (09:52)
[2021-05-01] MEDS: INSULIN LISPRO 100 UNIT/ML SUBCUT SCH ×3 (14:32→21:05)
[2021-05-01] MEDS ORDERED: hydrALAZINE 20 MG/1 ML VIAL IV ONE (16:17)
[2021-05-01] MEDS: cefTRIAXone 1,000 MG in SODIUM CHLORIDE 0.9% 100 ML IV SCH (16:48)
[2021-05-01] MEDS ORDERED: hydrALAZINE 20 MG/1 ML VIAL IM PRN (19:04)
[2021-05-01] MEDS: ALPRAZolam 0.5 MG TABLET PO SCH (20:14)
[2021-05-01] MEDS: traZODone 50 MG TABLET PO SCH (20:14)
[2021-05-01] MEDS: carvediloL 25 MG TABLET PO SCH (20:15)
[2021-05-01] MEDS: amLODIPine 10 MG TABLET PO SCH (20:15)
[2021-05-02] MEDS: SODIUM CHLORIDE 0.9% 1,000 ML IV SCH ×2 (02:00→09:36)
[2021-05-02] MEDS: HEPARIN 5,000 UNIT/1 ML VIAL SUBCUT SCH ×2 (03:52→16:42)
[2021-05-02] MEDS: LEVOTHYROXINE 125 MCG TABLET PO SCH (05:34)
[2021-05-02 06:11] LABS: Basophils % 0.8 % (0.0-0.8); Eosinophils # 0.1 10*3/uL (0.0-0.87); Eosinophils % 1.5 % (0.00-10.9); Hemoglobin 7.3 GM/DL (12.0-16.0); Immature Granulocytes % 0.2 %; Immature Granulocytes Absolute 0.01 #; Lymphocytes # 1.1 10*3/uL (1.4-4.0); Lymphocytes % 20.7 % (21.3-54.2); Mean Corpuscular HGB Conc 31.7 GM/DL (32-36); Mean Corpuscular Volume 97.9 FL (87-102); Mean Platelet Volume 10.6 FL (9.6-12.0); Monocytes % 7.9 % (1.7-12.7); Neutrophils % 68.9 % (38.7-73.9); Platelet Count 167 T/CUMM (130-400); Red Blood Count 2.35 MC/CUMM (3.8-5.5); White Blood Count 5.2 T/CUMM (4-12)
[2021-05-02 06:17] LABS: Albumin 2.5 G/DL (3.4-5.0); Bilirubin,Total 0.7 MG/DL (0.20-1.00); Calcium 8.2 MG/DL (8.5-10.1); Osmolality,Calculated 302.6 MOS/KG (273-304); Potassium 3.1 MMOL/L (3.5-5.1); Total Protein 5.6 G/DL (6.4-8.2)
[2021-05-02] MEDS ORDERED: FELODIPINE 5 MG TABLET PO SCH (08:00)
[2021-05-02] MEDS: INSULIN LISPRO 100 UNIT/ML SUBCUT SCH ×4 (08:09→20:54)
[2021-05-02] MEDS ORDERED: POTASSIUM CHLORIDE INJ 20 MEQ in SODIUM CHLORIDE 0.9% 1,000 ML IV SCH (08:43)
[2021-05-02] MEDS ORDERED: PIPERACILLIN/TAZOBACTAM 3,375 MG in SODIUM CHLORIDE 0.9% 100 ML IV SCH (09:00)
[2021-05-02] MEDS ORDERED: VANCOMYCIN INJ 1,000 MG in SODIUM CHLORIDE 0.9% 250 ML IV ONE (09:30)
[2021-05-02] MEDS: PANTOPRAZOLE 40 MG TABLET PO SCH (10:54)
[2021-05-02] MEDS: FUROSEMIDE 80 MG TABLET PO SCH (10:54)
[2021-05-02] MEDS: ALPRAZolam 0.5 MG TABLET PO SCH ×3 (10:54→20:54)
[2021-05-02] MEDS: ATORVASTATIN 40 MG TABLET PO SCH (10:54)
[2021-05-02] MEDS: FLUoxetine 20 MG CAPSULE PO SCH (10:55)
[2021-05-02] MEDS: AMIODARONE 200 MG TABLET PO SCH (10:55)
[2021-05-02] MEDS: carvediloL 25 MG TABLET PO SCH ×2 (10:55→20:54)
[2021-05-02] MEDS: amLODIPine 10 MG TABLET PO SCH (10:55)
[2021-05-02] MEDS: ASPIRIN 325 MG TABLET PO SCH (10:55)
[2021-05-02] MEDS: FENOFIBRATE 145 MG TABLET PO SCH (10:55)
[2021-05-02] MEDS: SODIUM CHLOR 0.9% KCL 20 MEQ 20 MEQ/1,000 ML BAG IV SCH ×2 (10:57→20:09)
[2021-05-02] MEDS: POTASSIUM CHLORIDE RIDER 10 MEQ/100 ML PREMIX IV SCH ×2 (11:06→18:12)
[2021-05-02] MEDS: DARIFENACIN 15 MG PO SCH (11:11)
[2021-05-02] MEDS ORDERED: VANCOMYCIN INJ 750 MG in SODIUM CHLORIDE 0.9% 250 ML IV PRN (13:08)
[2021-05-02] MEDS ORDERED: POTASSIUM CHLORIDE RIDER 10 MEQ/100 ML PREMIX IV SCH (18:00)
[2021-05-02] MEDS: PIPERACILLIN/TAZOBACTAM 2,250 MG in SODIUM CHLORIDE 0.9% 100 ML IV SCH (19:12)
[2021-05-02] MEDS: traZODone 50 MG TABLET PO SCH (20:54)
[2021-05-03] MEDS: PIPERACILLIN/TAZOBACTAM 2,250 MG in SODIUM CHLORIDE 0.9% 100 ML IV SCH ×3 (02:06→18:01)
[2021-05-03] MEDS: LEVOTHYROXINE 125 MCG TABLET PO SCH (05:17)
[2021-05-03] MEDS: HEPARIN 5,000 UNIT/1 ML VIAL SUBCUT SCH ×2 (05:17→15:43)
[2021-05-03 06:14] LABS: Basophils # 0.1 10*3/uL (0.0-0.2); Basophils % 1.1 % (0.0-0.8); Eosinophils # 0.2 10*3/uL (0.0-0.87); Eosinophils % 4.1 % (0.00-10.9); Hematocrit 23.7 VOL% (35.7-47.0); Hemoglobin 7.4 GM/DL (12.0-16.0); Immature Granulocytes % 0.2 %; Immature Granulocytes Absolute 0.01 #; Lymphocytes # 1.1 10*3/uL (1.4-4.0); Lymphocytes % 24.2 % (21.3-54.2); Mean Corpuscular HGB Conc 31.2 GM/DL (32-36); Mean Corpuscular Volume 97.9 FL (87-102); Mean Platelet Volume 10.6 FL (9.6-12.0); Monocytes % 6.1 % (1.7-12.7); Neutrophils % 64.3 % (38.7-73.9); Platelet Count 161 T/CUMM (130-400); Red Blood Count 2.42 MC/CUMM (3.8-5.5); Red Cell Distribution Width 15.2 % (9.3-17.3); White Blood Count 4.4 T/CUMM (4-12)
[2021-05-03 06:27] LABS: Albumin 2.4 G/DL (3.4-5.0); Bilirubin,Total 0.4 MG/DL (0.20-1.00); Calcium 8.1 MG/DL (8.5-10.1); Potassium 3.8 MMOL/L (3.5-5.1); Total Protein 5.5 G/DL (6.4-8.2)
[2021-05-03] MEDS: SODIUM CHLOR 0.9% KCL 20 MEQ 20 MEQ/1,000 ML BAG IV SCH ×2 (06:46→16:59)
[2021-05-03] MEDS: FUROSEMIDE 80 MG TABLET PO SCH (10:03)
[2021-05-03] MEDS: AMIODARONE 200 MG TABLET PO SCH (10:03)
[2021-05-03] MEDS: carvediloL 25 MG TABLET PO SCH ×2 (10:03→20:55)
[2021-05-03] MEDS: ATORVASTATIN 40 MG TABLET PO SCH (10:03)
[2021-05-03] MEDS: PANTOPRAZOLE 40 MG TABLET PO SCH (10:03)
[2021-05-03] MEDS: FLUoxetine 20 MG CAPSULE PO SCH (10:03)
[2021-05-03] MEDS: ALPRAZolam 0.5 MG TABLET PO SCH ×3 (10:03→20:55)
[2021-05-03] MEDS: ASPIRIN 325 MG TABLET PO SCH (10:04)
[2021-05-03] MEDS: FENOFIBRATE 145 MG TABLET PO SCH (10:04)
[2021-05-03] MEDS: amLODIPine 10 MG TABLET PO SCH (10:05)
[2021-05-03] MEDS: INSULIN LISPRO 100 UNIT/ML SUBCUT SCH ×4 (10:05→20:56)
[2021-05-03] MEDS: DARIFENACIN 15 MG PO SCH (10:19)
[2021-05-03] MEDS: traZODone 50 MG TABLET PO SCH (20:55)
[2021-05-04] MEDS: PIPERACILLIN/TAZOBACTAM 2,250 MG in SODIUM CHLORIDE 0.9% 100 ML IV SCH ×3 (03:33→18:43)
[2021-05-04] MEDS: HEPARIN 5,000 UNIT/1 ML VIAL SUBCUT SCH ×2 (03:33→16:10)
[2021-05-04] MEDS: LEVOTHYROXINE 125 MCG TABLET PO SCH (05:58)
[2021-05-04] MEDS: SODIUM CHLOR 0.9% KCL 20 MEQ 20 MEQ/1,000 ML BAG IV SCH ×2 (07:08→11:37)
[2021-05-04] MEDS: INSULIN LISPRO 100 UNIT/ML SUBCUT SCH ×4 (07:58→20:38)
[2021-05-04] MEDS ORDERED: VANCOMYCIN INJ 750 MG in SODIUM CHLORIDE 0.9% 250 ML IV PRN (09:41)
[2021-05-04] MEDS: carvediloL 25 MG TABLET PO SCH ×2 (09:48→20:37)
[2021-05-04] MEDS: PANTOPRAZOLE 40 MG TABLET PO SCH (09:48)
[2021-05-04] MEDS: FUROSEMIDE 80 MG TABLET PO SCH (09:49)
[2021-05-04] MEDS: ATORVASTATIN 40 MG TABLET PO SCH (09:49)
[2021-05-04] MEDS: amLODIPine 10 MG TABLET PO SCH (09:49)
[2021-05-04] MEDS: ALPRAZolam 0.5 MG TABLET PO SCH ×3 (09:49→20:37)
[2021-05-04] MEDS: AMIODARONE 200 MG TABLET PO SCH (09:49)
[2021-05-04] MEDS: FLUoxetine 20 MG CAPSULE PO SCH (09:54)
[2021-05-04] MEDS: FENOFIBRATE 145 MG TABLET PO SCH (09:54)
[2021-05-04] MEDS: ASPIRIN 325 MG TABLET PO SCH (09:54)
[2021-05-04] MEDS: DARIFENACIN 15 MG PO SCH (10:35)
[2021-05-04] MEDS ORDERED: VANCOMYCIN INJ 750 MG in SODIUM CHLORIDE 0.9% 250 ML IV ONE (12:00)
[2021-05-04] MEDS: traZODone 50 MG TABLET PO SCH (20:37)
[2021-05-05] MEDS: PIPERACILLIN/TAZOBACTAM 2,250 MG in SODIUM CHLORIDE 0.9% 100 ML IV SCH ×2 (02:35→09:37)
[2021-05-05] MEDS: HEPARIN 5,000 UNIT/1 ML VIAL SUBCUT SCH ×2 (05:21→16:31)
[2021-05-05] MEDS: LEVOTHYROXINE 125 MCG TABLET PO SCH (05:21)
[2021-05-05 06:02] LABS: Calcium 8.9 MG/DL (8.5-10.1); Osmolality,Calculated 298.1 MOS/KG (273-304); Potassium 4.5 MMOL/L (3.5-5.1)
[2021-05-05] MEDS: INSULIN LISPRO 100 UNIT/ML SUBCUT SCH ×4 (08:07→22:45)
[2021-05-05] MEDS: PANTOPRAZOLE 40 MG TABLET PO SCH (09:36)
[2021-05-05] MEDS: ALPRAZolam 0.5 MG TABLET PO SCH ×3 (09:37→22:46)
[2021-05-05] MEDS: FENOFIBRATE 145 MG TABLET PO SCH (09:37)
[2021-05-05] MEDS: carvediloL 25 MG TABLET PO SCH ×2 (09:37→22:46)
[2021-05-05] MEDS: ASPIRIN 325 MG TABLET PO SCH (09:37)
[2021-05-05] MEDS: amLODIPine 10 MG TABLET PO SCH (09:37)
[2021-05-05] MEDS: FUROSEMIDE 80 MG TABLET PO SCH (09:37)
[2021-05-05] MEDS: FLUoxetine 20 MG CAPSULE PO SCH (09:37)
[2021-05-05] MEDS: ATORVASTATIN 40 MG TABLET PO SCH (09:37)
[2021-05-05] MEDS: AMIODARONE 200 MG TABLET PO SCH (09:37)
[2021-05-05] MEDS: DARIFENACIN 15 MG PO SCH (10:07)
[2021-05-05] MEDS: SODIUM CHLOR 0.9% KCL 20 MEQ 20 MEQ/1,000 ML BAG IV SCH ×3 (16:30→17:32)
[2021-05-05] MEDS ORDERED: VANCOMYCIN INJ 750 MG in SODIUM CHLORIDE 0.9% 250 ML IV ONE (17:00)
[2021-05-05] MEDS: traZODone 50 MG TABLET PO SCH (22:45)
[2021-05-05] MEDS: PIPERACILLIN/TAZOBACTAM 3,375 MG in SODIUM CHLORIDE 0.9% 100 ML IV SCH (22:48)
[2021-05-06] MEDS: HEPARIN 5,000 UNIT/1 ML VIAL SUBCUT SCH ×2 (03:30→15:44)
[2021-05-06] MEDS: LEVOTHYROXINE 125 MCG TABLET PO SCH (05:59)
[2021-05-06 06:08] LABS: Basophils # 0.1 10*3/uL (0.0-0.2); Basophils % 1.1 % (0.0-0.8); Eosinophils # 0.2 10*3/uL (0.0-0.87); Eosinophils % 4.7 % (0.00-10.9); Hematocrit 22.9 VOL% (35.7-47.0); Hemoglobin 7.1 GM/DL (12.0-16.0); Immature Granulocytes % 0.2 %; Immature Granulocytes Absolute 0.01 #; Lymphocytes # 1.1 10*3/uL (1.4-4.0); Lymphocytes % 24.2 % (21.3-54.2); Mean Corpuscular Volume 97.4 FL (87-102); Mean Platelet Volume 10.4 FL (9.6-12.0); Monocytes % 6.3 % (1.7-12.7); Neutrophils % 63.5 % (38.7-73.9); Platelet Count 161 T/CUMM (130-400); Red Blood Count 2.35 MC/CUMM (3.8-5.5); Red Cell Distribution Width 15.1 % (9.3-17.3); White Blood Count 4.5 T/CUMM (4-12)
[2021-05-06 06:18] LABS: Albumin 2.4 G/DL (3.4-5.0); Bilirubin,Total 0.4 MG/DL (0.20-1.00); Calcium 8.7 MG/DL (8.5-10.1); Osmolality,Calculated 294.4 MOS/KG (273-304); Potassium 3.9 MMOL/L (3.5-5.1); Total Protein 5.8 G/DL (6.4-8.2)
[2021-05-06] MEDS: INSULIN LISPRO 100 UNIT/ML SUBCUT SCH ×4 (08:17→21:48)
[2021-05-06] MEDS: ASPIRIN 325 MG TABLET PO SCH (10:02)
[2021-05-06] MEDS: carvediloL 25 MG TABLET PO SCH ×2 (10:03→21:48)
[2021-05-06] MEDS: ALPRAZolam 0.5 MG TABLET PO SCH ×3 (10:03→21:47)
[2021-05-06] MEDS: FENOFIBRATE 145 MG TABLET PO SCH (10:03)
[2021-05-06] MEDS: amLODIPine 10 MG TABLET PO SCH (10:03)
[2021-05-06] MEDS: AMIODARONE 200 MG TABLET PO SCH (10:03)
[2021-05-06] MEDS: FLUoxetine 20 MG CAPSULE PO SCH (10:03)
[2021-05-06] MEDS: ATORVASTATIN 40 MG TABLET PO SCH (10:03)
[2021-05-06] MEDS: FUROSEMIDE 80 MG TABLET PO SCH (10:04)
[2021-05-06] MEDS: DARIFENACIN 15 MG PO SCH (10:04)
[2021-05-06] MEDS: PANTOPRAZOLE 40 MG TABLET PO SCH (10:04)
[2021-05-06] MEDS: PIPERACILLIN/TAZOBACTAM 3,375 MG in SODIUM CHLORIDE 0.9% 100 ML IV SCH ×2 (10:05→21:47)
[2021-05-06] MEDS: SODIUM CHLOR 0.9% KCL 20 MEQ 20 MEQ/1,000 ML BAG IV SCH (15:36)
[2021-05-06] MEDS: traZODone 50 MG TABLET PO SCH (21:47)
[2021-05-07] MEDS: SODIUM CHLOR 0.9% KCL 20 MEQ 20 MEQ/1,000 ML BAG IV SCH (02:39)
[2021-05-07] MEDS: HEPARIN 5,000 UNIT/1 ML VIAL SUBCUT SCH ×2 (05:22→16:23)
[2021-05-07] MEDS: LEVOTHYROXINE 125 MCG TABLET PO SCH (05:22)
[2021-05-07 05:51] LABS: Basophils % 0.8 % (0.0-0.8); Eosinophils # 0.2 10*3/uL (0.0-0.87); Eosinophils % 2.9 % (0.00-10.9); Hematocrit 22.5 VOL% (35.7-47.0); Hemoglobin 7.1 GM/DL (12.0-16.0); Immature Granulocytes % 0.4 %; Immature Granulocytes Absolute 0.02 #; Lymphocytes # 1.2 10*3/uL (1.4-4.0); Lymphocytes % 23.5 % (21.3-54.2); Mean Corpuscular HGB Conc 31.6 GM/DL (32-36); Mean Corpuscular Volume 98.7 FL (87-102); Mean Platelet Volume 10.4 FL (9.6-12.0); Monocytes % 6.6 % (1.7-12.7); Neutrophils % 65.8 % (38.7-73.9); Platelet Count 151 T/CUMM (130-400); Red Blood Count 2.28 MC/CUMM (3.8-5.5); Red Cell Distribution Width 15.2 % (9.3-17.3); White Blood Count 5.1 T/CUMM (4-12)
[2021-05-07 06:11] LABS: Calcium 8.2 MG/DL (8.5-10.1); Potassium 3.9 MMOL/L (3.5-5.1)
[2021-05-07] MEDS ORDERED: SODIUM CHLORIDE 0.9% 1,000 ML IV PRN (07:36)
[2021-05-07] MEDS: INSULIN LISPRO 100 UNIT/ML SUBCUT SCH ×4 (10:11→21:47)
[2021-05-07] MEDS: FLUoxetine 20 MG CAPSULE PO SCH (10:31)
[2021-05-07] MEDS: AMIODARONE 200 MG TABLET PO SCH (10:31)
[2021-05-07] MEDS: FUROSEMIDE 80 MG TABLET PO SCH (10:31)
[2021-05-07] MEDS: ATORVASTATIN 40 MG TABLET PO SCH (10:31)
[2021-05-07] MEDS: carvediloL 25 MG TABLET PO SCH ×2 (10:31→21:46)
[2021-05-07] MEDS: DARIFENACIN 15 MG PO SCH (10:31)
[2021-05-07] MEDS: ASPIRIN 325 MG TABLET PO SCH (10:32)
[2021-05-07] MEDS: PANTOPRAZOLE 40 MG TABLET PO SCH (10:32)
[2021-05-07] MEDS: ALPRAZolam 0.5 MG TABLET PO SCH ×3 (10:32→21:46)
[2021-05-07] MEDS: amLODIPine 10 MG TABLET PO SCH (10:32)
[2021-05-07] MEDS: AMOXICILLIN 500 MG CAPSULE PO SCH ×2 (10:32→21:46)
[2021-05-07] MEDS: FENOFIBRATE 145 MG TABLET PO SCH (10:32)
[2021-05-07] MEDS: traZODone 50 MG TABLET PO SCH (21:45)
[2021-05-08 05:24] LABS: Basophils # 0.1 10*3/uL (0.0-0.2); Basophils % 1.1 % (0.0-0.8); Eosinophils # 0.3 10*3/uL (0.0-0.87); Eosinophils % 4.1 % (0.00-10.9); Hematocrit 29.7 VOL% (35.7-47.0); Hemoglobin 9.6 GM/DL (12.0-16.0); Immature Granulocytes % 0.5 %; Immature Granulocytes Absolute 0.03 #; Lymphocytes # 1.3 10*3/uL (1.4-4.0); Lymphocytes % 20.7 % (21.3-54.2); Mean Corpuscular HGB Conc 32.3 GM/DL (32-36); Mean Platelet Volume 10.2 FL (9.6-12.0); Monocytes % 7.4 % (1.7-12.7); Neutrophils % 66.2 % (38.7-73.9); Platelet Count 146 T/CUMM (130-400); Red Blood Count 3.16 MC/CUMM (3.8-5.5); Red Cell Distribution Width 15.9 % (9.3-17.3); White Blood Count 6.1 T/CUMM (4-12)
[2021-05-08 05:51] LABS: Calcium 8.7 MG/DL (8.5-10.1); Osmolality,Calculated 292.7 MOS/KG (273-304); Potassium 3.7 MMOL/L (3.5-5.1)
[2021-05-08] MEDS: HEPARIN 5,000 UNIT/1 ML VIAL SUBCUT SCH ×2 (06:08→17:20)
[2021-05-08] MEDS: LEVOTHYROXINE 125 MCG TABLET PO SCH (06:08)
[2021-05-08] MEDS: INSULIN LISPRO 100 UNIT/ML SUBCUT SCH ×4 (07:30→21:12)
[2021-05-08] MEDS: AMIODARONE 200 MG TABLET PO SCH (09:24)
[2021-05-08] MEDS: ALPRAZolam 0.5 MG TABLET PO SCH ×3 (09:24→21:12)
[2021-05-08] MEDS: PANTOPRAZOLE 40 MG TABLET PO SCH (09:24)
[2021-05-08] MEDS: FLUoxetine 20 MG CAPSULE PO SCH (09:24)
[2021-05-08] MEDS: FUROSEMIDE 80 MG TABLET PO SCH (09:24)
[2021-05-08] MEDS: ASPIRIN 325 MG TABLET PO SCH (09:25)
[2021-05-08] MEDS: FENOFIBRATE 145 MG TABLET PO SCH (09:25)
[2021-05-08] MEDS: ATORVASTATIN 40 MG TABLET PO SCH (09:25)
[2021-05-08] MEDS: AMOXICILLIN 500 MG CAPSULE PO SCH ×2 (09:25→21:12)
[2021-05-08] MEDS: amLODIPine 10 MG TABLET PO SCH (09:25)
[2021-05-08] MEDS: carvediloL 25 MG TABLET PO SCH ×2 (09:25→21:12)
[2021-05-08] MEDS: DARIFENACIN 15 MG PO SCH (10:54)
[2021-05-08] MEDS: hydrALAZINE 25 MG TABLET PO SCH ×2 (11:25→21:11)
[2021-05-08] MEDS: traZODone 50 MG TABLET PO SCH (21:12)
[2021-05-09] MEDS: HEPARIN 5,000 UNIT/1 ML VIAL SUBCUT SCH ×2 (05:46→16:48)
[2021-05-09] MEDS: LEVOTHYROXINE 125 MCG TABLET PO SCH (05:46)
[2021-05-09 06:33] LABS: Basophils % 0.6 % (0.0-0.8); Eosinophils # 0.2 10*3/uL (0.0-0.87); Eosinophils % 3.9 % (0.00-10.9); Hematocrit 29.4 VOL% (35.7-47.0); Hemoglobin 9.7 GM/DL (12.0-16.0); Immature Granulocytes % 0.5 %; Immature Granulocytes Absolute 0.03 #; Lymphocytes # 1.5 10*3/uL (1.4-4.0); Lymphocytes % 24.6 % (21.3-54.2); Mean Corpuscular Volume 93.6 FL (87-102); Mean Platelet Volume 10.6 FL (9.6-12.0); Monocytes % 7.9 % (1.7-12.7); Neutrophils % 62.5 % (38.7-73.9); Platelet Count 154 T/CUMM (130-400); Red Blood Count 3.14 MC/CUMM (3.8-5.5); Red Cell Distribution Width 15.6 % (9.3-17.3); White Blood Count 6.2 T/CUMM (4-12)
[2021-05-09 06:49] LABS: Calcium 9.2 MG/DL (8.5-10.1); Osmolality,Calculated 295.7 MOS/KG (273-304); Potassium 3.6 MMOL/L (3.5-5.1)
[2021-05-09] MEDS ORDERED: SODIUM CHLORIDE 0.9% 500 ML IV SCH (07:00)
[2021-05-09] MEDS ORDERED: LACTATED RINGERS 1,000 ML IV SCH (08:00)
[2021-05-09] MEDS: INSULIN LISPRO 100 UNIT/ML SUBCUT SCH ×4 (08:00→23:20)
[2021-05-09] MEDS ORDERED: hydrALAZINE 25 MG TABLET PO SCH (09:00)
[2021-05-09] MEDS ORDERED: LIDOCAINE 2% 5 ML VIAL ONE (10:03)
[2021-05-09] MEDS ORDERED: propofoL 200 MG/20 ML VIAL IV ONE (10:03)
[2021-05-09] MEDS: ASPIRIN 325 MG TABLET PO SCH (12:54)
[2021-05-09] MEDS: AMIODARONE 200 MG TABLET PO SCH (12:54)
[2021-05-09] MEDS: AMOXICILLIN 500 MG CAPSULE PO SCH ×2 (12:54→23:19)
[2021-05-09] MEDS: FUROSEMIDE 80 MG TABLET PO SCH (12:55)
[2021-05-09] MEDS: carvediloL 25 MG TABLET PO SCH ×2 (12:55→23:20)
[2021-05-09] MEDS: FLUoxetine 20 MG CAPSULE PO SCH (12:55)
[2021-05-09] MEDS: PANTOPRAZOLE 40 MG TABLET PO SCH (12:55)
[2021-05-09] MEDS: hydrALAZINE 25 MG TABLET PO SCH ×3 (12:55→23:20)
[2021-05-09] MEDS: DARIFENACIN 15 MG PO SCH (12:55)
[2021-05-09] MEDS: ATORVASTATIN 40 MG TABLET PO SCH (12:55)
[2021-05-09] MEDS: FENOFIBRATE 145 MG TABLET PO SCH (12:56)
[2021-05-09] MEDS: amLODIPine 10 MG TABLET PO SCH (12:56)
[2021-05-09] MEDS: traZODone 50 MG TABLET PO SCH (23:19)
[2021-05-10] MEDS: LEVOTHYROXINE 125 MCG TABLET PO SCH (05:15)
[2021-05-10] MEDS: HEPARIN 5,000 UNIT/1 ML VIAL SUBCUT SCH ×2 (05:16→17:58)
[2021-05-10 05:56] LABS: Basophils # 0.1 10*3/uL (0.0-0.2); Basophils % 0.9 % (0.0-0.8); Eosinophils # 0.2 10*3/uL (0.0-0.87); Eosinophils % 3.2 % (0.00-10.9); Hematocrit 31.4 VOL% (35.7-47.0); Immature Granulocytes % 0.2 %; Immature Granulocytes Absolute 0.01 #; Lymphocytes # 1.5 10*3/uL (1.4-4.0); Lymphocytes % 25.8 % (21.3-54.2); Mean Corpuscular HGB Conc 31.8 GM/DL (32-36); Mean Corpuscular Volume 93.7 FL (87-102); Mean Platelet Volume 10.9 FL (9.6-12.0); Monocytes % 7.6 % (1.7-12.7); Neutrophils % 62.3 % (38.7-73.9); Platelet Count 161 T/CUMM (130-400); Red Blood Count 3.35 MC/CUMM (3.8-5.5); Red Cell Distribution Width 15.3 % (9.3-17.3); White Blood Count 5.6 T/CUMM (4-12)
[2021-05-10 06:08] LABS: Calcium 8.5 MG/DL (8.5-10.1); Osmolality,Calculated 297.7 MOS/KG (273-304); Potassium 3.6 MMOL/L (3.5-5.1)
[2021-05-10] MEDS: PANTOPRAZOLE 40 MG TABLET PO SCH (09:48)
[2021-05-10] MEDS: hydrALAZINE 25 MG TABLET PO SCH ×3 (09:48→22:37)
[2021-05-10] MEDS: AMIODARONE 200 MG TABLET PO SCH (09:48)
[2021-05-10] MEDS: FUROSEMIDE 80 MG TABLET PO SCH (09:48)
[2021-05-10] MEDS: INSULIN LISPRO 100 UNIT/ML SUBCUT SCH ×4 (09:49→22:38)
[2021-05-10] MEDS: ATORVASTATIN 40 MG TABLET PO SCH (09:49)
[2021-05-10] MEDS: amLODIPine 10 MG TABLET PO SCH (09:49)
[2021-05-10] MEDS: AMOXICILLIN 500 MG CAPSULE PO SCH ×2 (09:49→22:37)
[2021-05-10] MEDS: carvediloL 25 MG TABLET PO SCH ×2 (09:49→22:37)
[2021-05-10] MEDS: FENOFIBRATE 145 MG TABLET PO SCH (12:30)
[2021-05-10] MEDS: FLUoxetine 20 MG CAPSULE PO SCH (12:30)
[2021-05-10] MEDS: ASPIRIN 325 MG TABLET PO SCH (12:30)
[2021-05-10] MEDS: DARIFENACIN 15 MG PO SCH (18:23)
[2021-05-10] MEDS: traZODone 50 MG TABLET PO SCH (22:37)
[2021-05-11 05:25] LABS: Basophils # 0.1 10*3/uL (0.0-0.2); Basophils % 1.2 % (0.0-0.8); Eosinophils # 0.2 10*3/uL (0.0-0.87); Eosinophils % 3.9 % (0.00-10.9); Hematocrit 31.1 VOL% (35.7-47.0); Hemoglobin 10.3 GM/DL (12.0-16.0); Immature Granulocytes % 0.4 %; Immature Granulocytes Absolute 0.02 #; Lymphocytes # 1.2 10*3/uL (1.4-4.0); Mean Corpuscular HGB Conc 33.1 GM/DL (32-36); Mean Corpuscular Volume 93.1 FL (87-102); Mean Platelet Volume 10.2 FL (9.6-12.0); Monocytes % 8.6 % (1.7-12.7); Neutrophils % 61.9 % (38.7-73.9); Platelet Count 155 T/CUMM (130-400); Red Blood Count 3.34 MC/CUMM (3.8-5.5); Red Cell Distribution Width 15.1 % (9.3-17.3); White Blood Count 5.1 T/CUMM (4-12)
[2021-05-11] MEDS: HEPARIN 5,000 UNIT/1 ML VIAL SUBCUT SCH ×2 (05:27→16:34)
[2021-05-11] MEDS: LEVOTHYROXINE 125 MCG TABLET PO SCH (05:27)
[2021-05-11 05:38] LABS: Calcium 8.7 MG/DL (8.5-10.1); Osmolality,Calculated 304.5 MOS/KG (273-304); Potassium 3.6 MMOL/L (3.5-5.1)
[2021-05-11] MEDS: INSULIN LISPRO 100 UNIT/ML SUBCUT SCH ×4 (09:57→22:23)
[2021-05-11] MEDS: AMOXICILLIN 500 MG CAPSULE PO SCH ×2 (09:57→22:21)
[2021-05-11] MEDS: amLODIPine 10 MG TABLET PO SCH (09:57)
[2021-05-11] MEDS: PANTOPRAZOLE 40 MG TABLET PO SCH (09:58)
[2021-05-11] MEDS: ASPIRIN 325 MG TABLET PO SCH (09:58)
[2021-05-11] MEDS: AMIODARONE 200 MG TABLET PO SCH (09:58)
[2021-05-11] MEDS: FUROSEMIDE 80 MG TABLET PO SCH (09:58)
[2021-05-11] MEDS: hydrALAZINE 25 MG TABLET PO SCH ×3 (09:58→22:21)
[2021-05-11] MEDS: FENOFIBRATE 145 MG TABLET PO SCH (09:58)
[2021-05-11] MEDS: ATORVASTATIN 40 MG TABLET PO SCH (09:58)
[2021-05-11] MEDS: carvediloL 25 MG TABLET PO SCH ×2 (09:58→22:21)
[2021-05-11] MEDS: FLUoxetine 20 MG CAPSULE PO SCH (09:58)
[2021-05-11] MEDS: DARIFENACIN 15 MG PO SCH (18:44)
[2021-05-11] MEDS: traZODone 50 MG TABLET PO SCH (22:21)
[2021-05-12] MEDS: LEVOTHYROXINE 125 MCG TABLET PO SCH (05:17)
[2021-05-12] MEDS: HEPARIN 5,000 UNIT/1 ML VIAL SUBCUT SCH (05:17)
[2021-05-12] MEDS: ASPIRIN 325 MG TABLET PO SCH (10:10)
[2021-05-12] MEDS: FLUoxetine 20 MG CAPSULE PO SCH (10:10)
[2021-05-12] MEDS: AMIODARONE 200 MG TABLET PO SCH (10:10)
[2021-05-12] MEDS: FENOFIBRATE 145 MG TABLET PO SCH (10:10)
[2021-05-12] MEDS: hydrALAZINE 25 MG TABLET PO SCH ×2 (10:10→14:26)
[2021-05-12] MEDS: PANTOPRAZOLE 40 MG TABLET PO SCH (10:10)
[2021-05-12] MEDS: carvediloL 25 MG TABLET PO SCH (10:10)
[2021-05-12] MEDS: DARIFENACIN 15 MG PO SCH (10:11)
[2021-05-12] MEDS: amLODIPine 10 MG TABLET PO SCH (10:11)
[2021-05-12] MEDS: INSULIN LISPRO 100 UNIT/ML SUBCUT SCH ×2 (10:11→14:26)
[2021-05-12] MEDS: AMOXICILLIN 500 MG CAPSULE PO SCH (10:11)
[2021-05-12] MEDS: ATORVASTATIN 40 MG TABLET PO SCH (10:11)
[2021-05-12 13:24] VITALS: BP 145/62
== END 2021-05-12 15:46 | disposition hospice, home (50) | DRG 690 ==
LOC: SUATTDRO → N.ED 10:06 → SUATTDRO 16:00 → N.EDINP 16:00 → N.TELEN 22:34 → N.EDINP 22:34 → N.5E 05-05 02:29
PROVIDERS: ADMIT Internal Medicine; ATTEND Family Medicine

== ENCOUNTER 2021-05-31 09:06 | Inpatient (IN) ==
[2021-05-31] MEDS ORDERED: ONDANSETRON 4 MG/2 ML VIAL IV STA (09:51)
[2021-05-31] MEDS ORDERED: SODIUM CHLORIDE 0.9% 1,000 ML IV STA (09:51)
[2021-05-31 09:56] LABS: Basophils % 0.7 % (0.0-0.8); Eosinophils % 0.7 % (0.00-10.9); Hematocrit 26.5 VOL% (35.7-47.0); Hemoglobin 8.9 GM/DL (12.0-16.0); Immature Granulocytes % 0.4 %; Immature Granulocytes Absolute 0.02 #; Lymphocytes # 0.9 10*3/uL (1.4-4.0); Lymphocytes % 15.2 % (21.3-54.2); Mean Corpuscular HGB Conc 33.6 GM/DL (32-36); Mean Corpuscular Volume 91.1 FL (87-102); Mean Platelet Volume 10.3 FL (9.6-12.0); Monocytes % 4.8 % (1.7-12.7); Neutrophils % 78.2 % (38.7-73.9); Platelet Count 235 T/CUMM (130-400); Red Blood Count 2.91 MC/CUMM (3.8-5.5); Red Cell Distribution Width 15.6 % (9.3-17.3); White Blood Count 5.6 T/CUMM (4-12)
[2021-05-31 10:11] LABS: Albumin 3.2 G/DL (3.4-5.0); Bilirubin,Total 0.7 MG/DL (0.20-1.00); Calcium 8.6 MG/DL (8.5-10.1); Osmolality,Calculated 291.7 MOS/KG (273-304); Potassium 4.9 MMOL/L (3.5-5.1); Total Protein 6.7 G/DL (6.4-8.2)
[2021-05-31 11:24] LABS: Glucose,Urine (UA) Negative (Negative); Ketones,Urine Negative (Negative); Mucus,Urine Occasional /LPF (Occasional); Protein,Urine 30 MG/DL; RBC,Urine <1 /HPF (0-4); Squamous Epithelial Cell,Urine Occasional /HPF (0-10); Urine Appearance Clear (Clear); Urine Color Yellow (Yellow); Urine Specific Gravity 1.015 (1.001-1.035); Urine pH 5.5 (4.5-8.0)
[2021-05-31 11:25] LABS: Bilirubin,Urine Negative (Negative); Blood, Urine Negative (Negative); Nitrite,Urine Negative (Negative); Urine Urobilinogen 0.2 EU/DL (<2.0)
[2021-05-31] MEDS ORDERED: ACETAMINOPHEN 325 MG TABLET PO PRN (12:50)
[2021-05-31] MEDS ORDERED: DEXTROSE 10% 250 ML BAG IV PRN (12:50)
[2021-05-31] MEDS ORDERED: ONDANSETRON 4 MG/2 ML VIAL IV PRN (12:50)
[2021-05-31] MEDS ORDERED: GLUCAGON 1 MG VIAL IM PRN (12:50)
[2021-05-31] MEDS: SODIUM CHLORIDE 0.9% 1,000 ML IV SCH ×2 (13:00→20:37)
[2021-05-31] MEDS: ALPRAZolam 0.5 MG TABLET PO SCH ×2 (14:58→20:28)
[2021-05-31] MEDS: INSULIN GLARGINE 100 UNIT/ML SUBCUT SCH (20:19)
[2021-05-31] MEDS: traZODone 50 MG TABLET PO SCH (20:28)
[2021-05-31] MEDS: DOCUSATE SODIUM 100 MG CAPSULE PO SCH (20:28)
[2021-06-01] MEDS: SODIUM CHLORIDE 0.9% 1,000 ML IV SCH ×3 (02:05→20:08)
[2021-06-01 05:43] LABS: Basophils % 0.7 % (0.0-0.8); Eosinophils # 0.1 10*3/uL (0.0-0.87); Eosinophils % 1.4 % (0.00-10.9); Hematocrit 25.9 VOL% (35.7-47.0); Hemoglobin 8.6 GM/DL (12.0-16.0); Immature Granulocytes % 0.5 %; Immature Granulocytes Absolute 0.03 #; Lymphocytes % 17.8 % (21.3-54.2); Mean Corpuscular HGB Conc 33.2 GM/DL (32-36); Mean Corpuscular Volume 91.5 FL (87-102); Monocytes % 5.5 % (1.7-12.7); Neutrophils % 74.1 % (38.7-73.9); Platelet Count 237 T/CUMM (130-400); Red Blood Count 2.83 MC/CUMM (3.8-5.5); Red Cell Distribution Width 15.9 % (9.3-17.3); White Blood Count 5.6 T/CUMM (4-12)
[2021-06-01 06:05] LABS: Osmolality,Calculated 295.1 MOS/KG (273-304); Potassium 4.7 MMOL/L (3.5-5.1)
[2021-06-01] MEDS: LEVOTHYROXINE 125 MCG TABLET PO SCH (06:18)
[2021-06-01] MEDS: ALPRAZolam 0.5 MG TABLET PO SCH ×3 (08:18→20:52)
[2021-06-01] MEDS: DOCUSATE SODIUM 100 MG CAPSULE PO SCH ×2 (08:19→20:52)
[2021-06-01] MEDS: FLUoxetine 20 MG CAPSULE PO SCH (08:19)
[2021-06-01] MEDS: PANTOPRAZOLE 40 MG TABLET PO SCH (08:19)
[2021-06-01] MEDS: traZODone 50 MG TABLET PO SCH (20:52)
[2021-06-01] MEDS: INSULIN GLARGINE 100 UNIT/ML SUBCUT SCH (20:53)
[2021-06-02 05:43] LABS: Basophils % 0.7 % (0.0-0.8); Eosinophils # 0.1 10*3/uL (0.0-0.87); Eosinophils % 2.5 % (0.00-10.9); Hematocrit 26.3 VOL% (35.7-47.0); Hemoglobin 8.5 GM/DL (12.0-16.0); Immature Granulocytes % 0.7 %; Immature Granulocytes Absolute 0.04 #; Lymphocytes # 1.4 10*3/uL (1.4-4.0); Lymphocytes % 24.3 % (21.3-54.2); Mean Corpuscular HGB Conc 32.3 GM/DL (32-36); Mean Corpuscular Volume 94.6 FL (87-102); Mean Platelet Volume 10.2 FL (9.6-12.0); Monocytes % 7.1 % (1.7-12.7); Neutrophils % 64.7 % (38.7-73.9); Platelet Count 219 T/CUMM (130-400); Red Blood Count 2.78 MC/CUMM (3.8-5.5); White Blood Count 5.6 T/CUMM (4-12)
[2021-06-02] MEDS: LEVOTHYROXINE 125 MCG TABLET PO SCH (05:50)
[2021-06-02] MEDS: SODIUM CHLORIDE 0.9% 1,000 ML IV SCH ×3 (05:51→21:37)
[2021-06-02 05:55] LABS: Calcium 7.8 MG/DL (8.5-10.1); Osmolality,Calculated 296.7 MOS/KG (273-304); Potassium 4.7 MMOL/L (3.5-5.1)
[2021-06-02] MEDS: PANTOPRAZOLE 40 MG TABLET PO SCH (09:27)
[2021-06-02] MEDS: ALPRAZolam 0.5 MG TABLET PO SCH ×3 (09:27→21:38)
[2021-06-02] MEDS: DOCUSATE SODIUM 100 MG CAPSULE PO SCH ×2 (09:27→21:38)
[2021-06-02] MEDS: FLUoxetine 20 MG CAPSULE PO SCH (09:27)
[2021-06-02] MEDS ORDERED: TUBERCULIN SKIN TEST 0.1 ML SYRINGE INTRADERM ONE (11:00)
[2021-06-02] MEDS: traZODone 50 MG TABLET PO SCH (21:38)
[2021-06-02] MEDS: INSULIN GLARGINE 100 UNIT/ML SUBCUT SCH (21:38)
[2021-06-03] MEDS: LEVOTHYROXINE 125 MCG TABLET PO SCH (05:24)
[2021-06-03 06:09] LABS: Basophils # 0.1 10*3/uL (0.0-0.2); Basophils % 0.7 % (0.0-0.8); Eosinophils # 0.2 10*3/uL (0.0-0.87); Eosinophils % 3.6 % (0.00-10.9); Hematocrit 26.5 VOL% (35.7-47.0); Hemoglobin 8.5 GM/DL (12.0-16.0); Immature Granulocytes % 0.4 %; Immature Granulocytes Absolute 0.03 #; Lymphocytes # 1.1 10*3/uL (1.4-4.0); Lymphocytes % 16.3 % (21.3-54.2); Mean Corpuscular HGB Conc 32.1 GM/DL (32-36); Mean Platelet Volume 9.7 FL (9.6-12.0); Monocytes % 5.7 % (1.7-12.7); Neutrophils % 73.3 % (38.7-73.9); Platelet Count 193 T/CUMM (130-400); Red Blood Count 2.79 MC/CUMM (3.8-5.5); Red Cell Distribution Width 16.1 % (9.3-17.3); White Blood Count 6.7 T/CUMM (4-12)
[2021-06-03 06:25] LABS: Calcium 7.9 MG/DL (8.5-10.1); Osmolality,Calculated 294.3 MOS/KG (273-304); Potassium 3.9 MMOL/L (3.5-5.1)
[2021-06-03] MEDS: SODIUM CHLORIDE 0.9% 1,000 ML IV SCH ×2 (07:00→10:14)
[2021-06-03] MEDS ORDERED: NON-FORMULARY MEDICATION (Esomeprazole Magnesium [Nexium] 40 mg Capsule,Delayed Release(Dr PO SCH (08:00)
[2021-06-03] MEDS: FLUoxetine 20 MG CAPSULE PO SCH (08:45)
[2021-06-03] MEDS: FENOFIBRATE 145 MG TABLET PO SCH (08:45)
[2021-06-03] MEDS: CHOLECALCIFEROL 5,000 UNIT TABLET PO SCH (08:45)
[2021-06-03] MEDS: carvediloL 25 MG TABLET PO SCH ×2 (08:45→21:26)
[2021-06-03] MEDS: amLODIPine 10 MG TABLET PO SCH (08:45)
[2021-06-03] MEDS: DOCUSATE SODIUM 100 MG CAPSULE PO SCH ×2 (08:45→21:26)
[2021-06-03] MEDS: ATORVASTATIN 40 MG TABLET PO SCH (08:45)
[2021-06-03] MEDS: POTASSIUM CHLORIDE 10 MEQ TABLET PO SCH ×2 (08:45→21:27)
[2021-06-03] MEDS: hydrALAZINE 25 MG TABLET PO SCH ×3 (08:45→21:26)
[2021-06-03] MEDS: cloNIDine 0.1 MG TABLET PO SCH ×2 (08:45→21:26)
[2021-06-03] MEDS: PANTOPRAZOLE 40 MG TABLET PO SCH (08:45)
[2021-06-03] MEDS: FUROSEMIDE 80 MG TABLET PO SCH (08:45)
[2021-06-03] MEDS: ALPRAZolam 0.5 MG TABLET PO SCH ×3 (08:45→21:26)
[2021-06-03] MEDS: DARIFENACIN 15 MG PO SCH (09:03)
[2021-06-03] MEDS: traZODone 50 MG TABLET PO SCH (21:26)
[2021-06-03] MEDS: INSULIN GLARGINE 100 UNIT/ML SUBCUT SCH (21:26)
[2021-06-04] MEDS: SODIUM CHLORIDE 0.9% 1,000 ML IV SCH (05:21)
[2021-06-04] MEDS: LEVOTHYROXINE 125 MCG TABLET PO SCH (05:21)
[2021-06-04 05:28] LABS: Basophils % 0.5 % (0.0-0.8); Eosinophils # 0.2 10*3/uL (0.0-0.87); Eosinophils % 3.4 % (0.00-10.9); Hematocrit 25.9 VOL% (35.7-47.0); Hemoglobin 8.2 GM/DL (12.0-16.0); Immature Granulocytes % 0.5 %; Immature Granulocytes Absolute 0.03 #; Lymphocytes % 17.6 % (21.3-54.2); Mean Corpuscular HGB Conc 31.7 GM/DL (32-36); Mean Corpuscular Volume 95.6 FL (87-102); Mean Platelet Volume 9.6 FL (9.6-12.0); Platelet Count 185 T/CUMM (130-400); Red Blood Count 2.71 MC/CUMM (3.8-5.5); Red Cell Distribution Width 16.6 % (9.3-17.3); White Blood Count 5.6 T/CUMM (4-12)
[2021-06-04 05:45] LABS: Calcium 7.8 MG/DL (8.5-10.1); Potassium 3.6 MMOL/L (3.5-5.1)
[2021-06-04] MEDS: FENOFIBRATE 145 MG TABLET PO SCH (08:32)
[2021-06-04] MEDS: DOCUSATE SODIUM 100 MG CAPSULE PO SCH (08:33)
[2021-06-04] MEDS: amLODIPine 10 MG TABLET PO SCH (08:33)
[2021-06-04] MEDS: POTASSIUM CHLORIDE 10 MEQ TABLET PO SCH (08:33)
[2021-06-04] MEDS: CHOLECALCIFEROL 5,000 UNIT TABLET PO SCH (08:33)
[2021-06-04] MEDS: cloNIDine 0.1 MG TABLET PO SCH (08:33)
[2021-06-04] MEDS: hydrALAZINE 25 MG TABLET PO SCH (08:33)
[2021-06-04] MEDS: FUROSEMIDE 80 MG TABLET PO SCH (08:33)
[2021-06-04] MEDS: PANTOPRAZOLE 40 MG TABLET PO SCH (08:33)
[2021-06-04] MEDS: ALPRAZolam 0.5 MG TABLET PO SCH (08:33)
[2021-06-04] MEDS: FLUoxetine 20 MG CAPSULE PO SCH (08:33)
[2021-06-04] MEDS: carvediloL 25 MG TABLET PO SCH (08:34)
[2021-06-04] MEDS: ATORVASTATIN 40 MG TABLET PO SCH (08:34)
[2021-06-04] MEDS: DARIFENACIN 15 MG PO SCH (10:04)
[2021-06-04 12:09] VITALS: BP 166/64
[2021-06-04] MEDS ORDERED: INSULIN GLARGINE 100 UNIT/ML SUBCUT SCH (20:00)
== END 2021-06-04 12:15 | disposition home health service (06) | DRG 683 ==
LOC: N.ED 09:06 → N.EDINP 12:04 → N.5E 18:26
PROVIDERS: ADMIT Family Medicine; ATTEND Family Medicine

== ENCOUNTER 2021-08-28 15:18 | Inpatient (IN) ==
[2021-08-28] MEDS ORDERED: SODIUM CHLORIDE 0.9% 1,000 ML IV PRN (17:03)
[2021-08-28 17:40] LABS: Basophils % 0.9 % (0.0-0.8); Eosinophils # 0.1 10*3/uL (0.0-0.87); Eosinophils % 1.7 % (0.00-10.9); Hematocrit 23.6 VOL% (35.7-47.0); Hemoglobin 7.3 GM/DL (12.0-16.0); Immature Granulocytes % 0.4 %; Immature Granulocytes Absolute 0.02 #; Lymphocytes # 0.9 10*3/uL (1.4-4.0); Lymphocytes % 18.8 % (21.3-54.2); Mean Corpuscular HGB Conc 30.9 GM/DL (32-36); Mean Corpuscular Volume 97.9 FL (87-102); Mean Platelet Volume 10.4 FL (9.6-12.0); Monocytes # 0.3 10*3/uL (0.11-0.8); Monocytes % 6.9 % (1.7-12.7); Neutrophils % 71.3 % (38.7-73.9); Platelet Count 199 T/CUMM (130-400); Red Blood Count 2.41 MC/CUMM (3.8-5.5); Red Cell Distribution Width 17.4 % (9.3-17.3); White Blood Count 4.7 T/CUMM (4-12)
[2021-08-28 18:03] LABS: Albumin 2.9 G/DL (3.4-5.0); Bilirubin,Total 0.4 MG/DL (0.20-1.00); Calcium 8.3 MG/DL (8.5-10.1); Osmolality,Calculated 301.1 MOS/KG (273-304); Potassium 4.3 MMOL/L (3.5-5.1); Total Protein 6.3 G/DL (6.4-8.2)
[2021-08-28] MEDS ORDERED: ONDANSETRON 4 MG/2 ML VIAL IV PRN (18:23)
[2021-08-28] MEDS: ATORVASTATIN 40 MG TABLET PO SCH (21:24)
[2021-08-28] MEDS: carvediloL 25 MG TABLET PO SCH (21:24)
[2021-08-28] MEDS: ALPRAZolam 0.5 MG TABLET PO SCH (21:24)
[2021-08-28] MEDS: DOCUSATE SODIUM 100 MG CAPSULE PO SCH (21:24)
[2021-08-28] MEDS: cloNIDine 0.1 MG TABLET PO SCH (21:24)
[2021-08-29] MEDS: LEVOTHYROXINE 175 MCG TABLET PO SCH (06:05)
[2021-08-29] MEDS ORDERED: NON-FORMULARY MEDICATION (Esomeprazole Magnesium [Nexium] 40 mg Capsule,Delayed Release(Dr PO SCH (09:00)
[2021-08-29 09:32] LABS: Basophils % 0.7 % (0.0-0.8); Eosinophils # 0.1 10*3/uL (0.0-0.87); Eosinophils % 1.7 % (0.00-10.9); Hematocrit 21.9 VOL% (35.7-47.0); Hemoglobin 6.8 GM/DL (12.0-16.0); Immature Granulocytes % 0.5 %; Immature Granulocytes Absolute 0.02 #; Lymphocytes # 0.8 10*3/uL (1.4-4.0); Lymphocytes % 17.8 % (21.3-54.2); Mean Corpuscular HGB Conc 31.1 GM/DL (32-36); Mean Corpuscular Volume 97.8 FL (87-102); Mean Platelet Volume 9.9 FL (9.6-12.0); Monocytes # 0.2 10*3/uL (0.11-0.8); Monocytes % 5.2 % (1.7-12.7); Neutrophils % 74.1 % (38.7-73.9); Platelet Count 182 T/CUMM (130-400); Red Blood Count 2.24 MC/CUMM (3.8-5.5); Red Cell Distribution Width 17.6 % (9.3-17.3); White Blood Count 4.2 T/CUMM (4-12)
[2021-08-29 09:56] LABS: Albumin 2.6 G/DL (3.4-5.0); Bilirubin,Total 0.6 MG/DL (0.20-1.00); Calcium 8.4 MG/DL (8.5-10.1); Osmolality,Calculated 301.3 MOS/KG (273-304); Potassium 4.3 MMOL/L (3.5-5.1)
[2021-08-29] MEDS: FLUoxetine 20 MG CAPSULE PO SCH (10:08)
[2021-08-29] MEDS: PANTOPRAZOLE 40 MG TABLET PO SCH (10:08)
[2021-08-29] MEDS: POTASSIUM CHLORIDE 10 MEQ TABLET PO SCH ×2 (10:08→21:59)
[2021-08-29] MEDS: FENOFIBRATE 145 MG TABLET PO SCH (10:08)
[2021-08-29] MEDS: DOCUSATE SODIUM 100 MG CAPSULE PO SCH ×2 (10:09→21:59)
[2021-08-29] MEDS: hydrALAZINE 25 MG TABLET PO SCH ×3 (10:09→21:59)
[2021-08-29] MEDS: amLODIPine 10 MG TABLET PO SCH (10:09)
[2021-08-29] MEDS: cloNIDine 0.1 MG TABLET PO SCH ×2 (10:09→21:59)
[2021-08-29] MEDS: carvediloL 25 MG TABLET PO SCH ×2 (10:09→17:47)
[2021-08-29] MEDS: ALPRAZolam 0.5 MG TABLET PO SCH ×3 (10:47→21:59)
[2021-08-29] MEDS: FUROSEMIDE 40 MG TABLET PO SCH (10:48)
[2021-08-29] MEDS: CHOLECALCIFEROL 5,000 UNIT TABLET PO SCH (10:49)
[2021-08-29] MEDS: DARIFENACIN 15 MG PO SCH (10:50)
[2021-08-29] MEDS ORDERED: MAGNESIUM SULF RIDER 2 GM/50 ML PREMIX IV PRN (18:13)
[2021-08-29] MEDS ORDERED: POTASSIUM CHLORIDE 20 MEQ TABLET PO PRN (18:13)
[2021-08-29] MEDS ORDERED: POTASSIUM CHLORIDE RIDER 10 MEQ/100 ML PREMIX IV PRN (18:13)
[2021-08-29] MEDS ORDERED: MAGNESIUM SULF RIDER 4 GM/100 ML PREMIX IV PRN (18:13)
[2021-08-29] MEDS: traZODone 50 MG TABLET PO SCH (21:59)
[2021-08-29] MEDS: ATORVASTATIN 40 MG TABLET PO SCH (21:59)
[2021-08-29] MEDS: INSULIN GLARGINE 100 UNIT/ML SUBCUT SCH (22:00)
[2021-08-30 05:17] LABS: Basophils % 0.7 % (0.0-0.8); Eosinophils # 0.1 10*3/uL (0.0-0.87); Eosinophils % 2.2 % (0.00-10.9); Hematocrit 29.1 VOL% (35.7-47.0); Hemoglobin 9.3 GM/DL (12.0-16.0); Immature Granulocytes % 0.3 %; Immature Granulocytes Absolute 0.02 #; Lymphocytes # 1.1 10*3/uL (1.4-4.0); Lymphocytes % 18.9 % (21.3-54.2); Mean Corpuscular Volume 93.6 FL (87-102); Mean Platelet Volume 9.9 FL (9.6-12.0); Monocytes # 0.5 10*3/uL (0.11-0.8); Neutrophils % 68.9 % (38.7-73.9); Platelet Count 175 T/CUMM (130-400); Red Blood Count 3.11 MC/CUMM (3.8-5.5); Red Cell Distribution Width 17.8 % (9.3-17.3)
[2021-08-30 05:34] LABS: Albumin 2.6 G/DL (3.4-5.0); Bilirubin,Total 0.7 MG/DL (0.20-1.00); Calcium 8.7 MG/DL (8.5-10.1); Osmolality,Calculated 298.3 MOS/KG (273-304); Potassium 4.1 MMOL/L (3.5-5.1); Total Protein 5.7 G/DL (6.4-8.2)
[2021-08-30] MEDS: DOCUSATE SODIUM 100 MG CAPSULE PO SCH ×2 (08:58→22:53)
[2021-08-30] MEDS: ALPRAZolam 0.5 MG TABLET PO SCH ×3 (08:58→22:53)
[2021-08-30] MEDS: FENOFIBRATE 145 MG TABLET PO SCH (08:58)
[2021-08-30] MEDS: carvediloL 25 MG TABLET PO SCH ×2 (08:59→16:09)
[2021-08-30] MEDS: POTASSIUM CHLORIDE 10 MEQ TABLET PO SCH ×2 (08:59→22:55)
[2021-08-30] MEDS: FLUoxetine 20 MG CAPSULE PO SCH (08:59)
[2021-08-30] MEDS: CHOLECALCIFEROL 5,000 UNIT TABLET PO SCH (08:59)
[2021-08-30] MEDS: amLODIPine 10 MG TABLET PO SCH (08:59)
[2021-08-30] MEDS: cloNIDine 0.1 MG TABLET PO SCH ×2 (08:59→22:55)
[2021-08-30] MEDS: LEVOTHYROXINE 175 MCG TABLET PO SCH (08:59)
[2021-08-30] MEDS: hydrALAZINE 25 MG TABLET PO SCH ×3 (08:59→22:53)
[2021-08-30] MEDS: PANTOPRAZOLE 40 MG TABLET PO SCH (08:59)
[2021-08-30] MEDS: FUROSEMIDE 40 MG TABLET PO SCH (08:59)
[2021-08-30] MEDS: DARIFENACIN 15 MG PO SCH (09:00)
[2021-08-30] MEDS ORDERED: MAGNESIUM HYDROXIDE SUSP 30 ML UDCUP PO ONE (13:10)
[2021-08-30] MEDS ORDERED: MAGNESIUM HYDROXIDE SUSP 30 ML UDCUP PO PRN (13:10)
[2021-08-30] MEDS: traZODone 50 MG TABLET PO SCH (22:52)
[2021-08-30] MEDS: ATORVASTATIN 40 MG TABLET PO SCH (22:53)
[2021-08-30] MEDS: ACETAMINOPHEN 325 MG TABLET PO PRN (22:54)
[2021-08-30] MEDS: INSULIN GLARGINE 100 UNIT/ML SUBCUT SCH (22:54)
[2021-08-31] MEDS: LEVOTHYROXINE 175 MCG TABLET PO SCH (05:41)
[2021-08-31 05:54] LABS: Basophils # 0.1 10*3/uL (0.0-0.2); Basophils % 0.8 % (0.0-0.8); Eosinophils # 0.1 10*3/uL (0.0-0.87); Hematocrit 29.9 VOL% (35.7-47.0); Hemoglobin 9.6 GM/DL (12.0-16.0); Immature Granulocytes % 0.7 %; Immature Granulocytes Absolute 0.04 #; Lymphocytes % 16.9 % (21.3-54.2); Mean Corpuscular HGB Conc 32.1 GM/DL (32-36); Mean Corpuscular Volume 92.3 FL (87-102); Mean Platelet Volume 9.9 FL (9.6-12.0); Monocytes # 0.5 10*3/uL (0.11-0.8); Monocytes % 8.5 % (1.7-12.7); Neutrophils % 71.1 % (38.7-73.9); Platelet Count 181 T/CUMM (130-400); Red Blood Count 3.24 MC/CUMM (3.8-5.5); Red Cell Distribution Width 17.7 % (9.3-17.3); White Blood Count 6.1 T/CUMM (4-12)
[2021-08-31 06:06] LABS: Calcium 8.7 MG/DL (8.5-10.1); Osmolality,Calculated 299.1 MOS/KG (273-304); Potassium 3.9 MMOL/L (3.5-5.1)
[2021-08-31] MEDS: carvediloL 25 MG TABLET PO SCH ×2 (09:43→17:03)
[2021-08-31] MEDS: FLUoxetine 20 MG CAPSULE PO SCH (09:43)
[2021-08-31] MEDS: ALPRAZolam 0.5 MG TABLET PO SCH ×3 (09:44→21:53)
[2021-08-31] MEDS: CHOLECALCIFEROL 5,000 UNIT TABLET PO SCH (09:44)
[2021-08-31] MEDS: cloNIDine 0.1 MG TABLET PO SCH ×2 (09:44→21:52)
[2021-08-31] MEDS: amLODIPine 10 MG TABLET PO SCH (09:44)
[2021-08-31] MEDS: FENOFIBRATE 145 MG TABLET PO SCH (09:44)
[2021-08-31] MEDS: hydrALAZINE 25 MG TABLET PO SCH ×3 (09:44→21:52)
[2021-08-31] MEDS: FUROSEMIDE 40 MG TABLET PO SCH (09:44)
[2021-08-31] MEDS: PANTOPRAZOLE 40 MG TABLET PO SCH (09:45)
[2021-08-31] MEDS: DOCUSATE SODIUM 100 MG CAPSULE PO SCH ×2 (09:45→21:53)
[2021-08-31] MEDS: POTASSIUM CHLORIDE 10 MEQ TABLET PO SCH ×2 (09:45→21:52)
[2021-08-31] MEDS: DARIFENACIN 15 MG PO SCH (10:49)
[2021-08-31] MEDS ORDERED: POLYETHYLENE GLYCOL POWDER 17 GM PACK PO ONE (16:15)
[2021-08-31] MEDS: ATORVASTATIN 40 MG TABLET PO SCH (21:52)
[2021-08-31] MEDS: traZODone 50 MG TABLET PO SCH (21:53)
[2021-08-31] MEDS: ACETAMINOPHEN 325 MG TABLET PO PRN (21:53)
[2021-08-31] MEDS: INSULIN GLARGINE 100 UNIT/ML SUBCUT SCH (21:59)
[2021-08-31] MEDS: FERROUS SULFATE 325 MG TABLET PO SCH (21:59)
[2021-09-01 05:04] LABS: Basophils % 0.7 % (0.0-0.8); Eosinophils # 0.1 10*3/uL (0.0-0.87); Eosinophils % 1.8 % (0.00-10.9); Hematocrit 29.6 VOL% (35.7-47.0); Hemoglobin 9.6 GM/DL (12.0-16.0); Immature Granulocytes % 0.8 %; Immature Granulocytes Absolute 0.05 #; Lymphocytes # 1.2 10*3/uL (1.4-4.0); Lymphocytes % 19.5 % (21.3-54.2); Mean Corpuscular HGB Conc 32.4 GM/DL (32-36); Mean Corpuscular Volume 93.7 FL (87-102); Mean Platelet Volume 9.6 FL (9.6-12.0); Monocytes # 0.6 10*3/uL (0.11-0.8); Monocytes % 9.1 % (1.7-12.7); Neutrophils % 68.1 % (38.7-73.9); Platelet Count 150 T/CUMM (130-400); Red Blood Count 3.16 MC/CUMM (3.8-5.5); Red Cell Distribution Width 17.3 % (9.3-17.3); White Blood Count 6.1 T/CUMM (4-12)
[2021-09-01 05:38] LABS: Albumin 2.5 G/DL (3.4-5.0); Bilirubin,Total 0.5 MG/DL (0.20-1.00); Calcium 8.5 MG/DL (8.5-10.1); Osmolality,Calculated 296.4 MOS/KG (273-304); Total Protein 5.8 G/DL (6.4-8.2)
[2021-09-01] MEDS: LEVOTHYROXINE 175 MCG TABLET PO SCH (05:50)
[2021-09-01] MEDS: carvediloL 25 MG TABLET PO SCH ×2 (10:07→17:33)
[2021-09-01] MEDS: POTASSIUM CHLORIDE 10 MEQ TABLET PO SCH ×2 (10:07→20:57)
[2021-09-01] MEDS: FERROUS SULFATE 325 MG TABLET PO SCH ×2 (10:07→20:58)
[2021-09-01] MEDS: POLYETHYLENE GLYCOL POWDER 17 GM PACK PO SCH (10:08)
[2021-09-01] MEDS: FENOFIBRATE 145 MG TABLET PO SCH (10:08)
[2021-09-01] MEDS: FLUoxetine 20 MG CAPSULE PO SCH (10:08)
[2021-09-01] MEDS: amLODIPine 10 MG TABLET PO SCH (10:08)
[2021-09-01] MEDS: DOCUSATE SODIUM 100 MG CAPSULE PO SCH ×2 (10:08→21:04)
[2021-09-01] MEDS: DARIFENACIN 15 MG PO SCH (10:09)
[2021-09-01] MEDS: cloNIDine 0.1 MG TABLET PO SCH ×2 (10:09→21:03)
[2021-09-01] MEDS: hydrALAZINE 25 MG TABLET PO SCH ×3 (10:09→21:03)
[2021-09-01] MEDS: PANTOPRAZOLE 40 MG TABLET PO SCH (10:09)
[2021-09-01] MEDS: ALPRAZolam 0.5 MG TABLET PO SCH ×3 (10:15→20:58)
[2021-09-01] MEDS: FUROSEMIDE 40 MG TABLET PO SCH (10:15)
[2021-09-01] MEDS: CHOLECALCIFEROL 5,000 UNIT TABLET PO SCH (10:16)
[2021-09-01 11:39] LABS: Basophils % 0.4 % (0.0-0.8); Eosinophils # 0.1 10*3/uL (0.0-0.87); Eosinophils % 1.9 % (0.00-10.9); Hemoglobin 10.3 GM/DL (12.0-16.0); Immature Granulocytes % 0.5 %; Immature Granulocytes Absolute 0.03 #; Lymphocytes # 0.9 10*3/uL (1.4-4.0); Lymphocytes % 15.2 % (21.3-54.2); Mean Corpuscular HGB Conc 32.2 GM/DL (32-36); Mean Corpuscular Volume 92.5 FL (87-102); Mean Platelet Volume 9.6 FL (9.6-12.0); Monocytes # 0.3 10*3/uL (0.11-0.8); Monocytes % 5.3 % (1.7-12.7); Neutrophils % 76.7 % (38.7-73.9); Platelet Count 161 T/CUMM (130-400); Red Blood Count 3.46 MC/CUMM (3.8-5.5); Red Cell Distribution Width 17.3 % (9.3-17.3); White Blood Count 5.7 T/CUMM (4-12)
[2021-09-01 12:10] LABS: Folate 5.51 NG/ML (5.38-24.0); Vitamin B12 297 PG/ML (211-911)
[2021-09-01 12:38] LABS: Sedimentation Rate-Westergren 21 MM/HR (0-30)
[2021-09-01 18:57] LABS: Bacteria,Urine Few /HPF (Few); Mucus,Urine Occasional /LPF (Occasional); RBC,Urine 17 /HPF (0-4); Squamous Epithelial Cell,Urine Occasional /HPF (0-10); Urine Appearance Slightly Cloudy (Clear); Urine Color Yellow (Yellow)
[2021-09-01 18:58] LABS: Bilirubin,Urine Negative (Negative); Blood, Urine Trace mg/dL (Negative); Glucose,Urine (UA) Negative (Negative); Ketones,Urine Negative (Negative); Nitrite,Urine Negative (Negative); Protein,Urine Trace mg/dL (Negative); Urine Urobilinogen 0.2 eU/dL (<2.0)
[2021-09-01] MEDS: ATORVASTATIN 40 MG TABLET PO SCH (20:58)
[2021-09-01] MEDS: traZODone 50 MG TABLET PO SCH (20:58)
[2021-09-01] MEDS: INSULIN GLARGINE 100 UNIT/ML SUBCUT SCH (21:03)
[2021-09-02 04:46] LABS: Basophils # 0.1 10*3/uL (0.0-0.2); Basophils % 0.8 % (0.0-0.8); Eosinophils # 0.1 10*3/uL (0.0-0.87); Eosinophils % 2.2 % (0.00-10.9); Hematocrit 29.2 VOL% (35.7-47.0); Hemoglobin 9.4 GM/DL (12.0-16.0); Immature Granulocytes % 0.5 %; Immature Granulocytes Absolute 0.03 #; Lymphocytes # 1.3 10*3/uL (1.4-4.0); Lymphocytes % 21.2 % (21.3-54.2); Mean Corpuscular HGB Conc 32.2 GM/DL (32-36); Mean Corpuscular Volume 94.2 FL (87-102); Mean Platelet Volume 10.8 FL (9.6-12.0); Monocytes # 0.4 10*3/uL (0.11-0.8); Monocytes % 6.7 % (1.7-12.7); Neutrophils % 68.6 % (38.7-73.9); Platelet Count 165 T/CUMM (130-400); Red Cell Distribution Width 17.2 % (9.3-17.3); White Blood Count 6.2 T/CUMM (4-12)
[2021-09-02 05:08] LABS: Albumin 2.6 G/DL (3.4-5.0); Bilirubin,Total 0.5 MG/DL (0.20-1.00); Calcium 8.7 MG/DL (8.5-10.1); Osmolality,Calculated 297.4 MOS/KG (273-304); Potassium 4.3 MMOL/L (3.5-5.1)
[2021-09-02] MEDS: LEVOTHYROXINE 175 MCG TABLET PO SCH (06:45)
[2021-09-02 09:03] LABS: Hemoglobin A1 (Alkaline) 97.7 % (96.5-98.5); Hemoglobin A2 (Alkaline) 2.3 % (1.5-3.5)
[2021-09-02] MEDS: FENOFIBRATE 145 MG TABLET PO SCH (09:52)
[2021-09-02] MEDS: carvediloL 25 MG TABLET PO SCH ×2 (09:52→18:39)
[2021-09-02] MEDS: cloNIDine 0.1 MG TABLET PO SCH ×2 (09:52→21:30)
[2021-09-02] MEDS: CHOLECALCIFEROL 5,000 UNIT TABLET PO SCH (09:52)
[2021-09-02] MEDS: FUROSEMIDE 40 MG TABLET PO SCH (09:52)
[2021-09-02] MEDS: FLUoxetine 20 MG CAPSULE PO SCH (09:52)
[2021-09-02] MEDS: POLYETHYLENE GLYCOL POWDER 17 GM PACK PO SCH (09:53)
[2021-09-02] MEDS: FERROUS SULFATE 325 MG TABLET PO SCH ×2 (09:53→20:00)
[2021-09-02] MEDS: FOLIC ACID 1 MG TABLET PO SCH (09:53)
[2021-09-02] MEDS: DOCUSATE SODIUM 100 MG CAPSULE PO SCH ×2 (09:53→21:30)
[2021-09-02] MEDS: POTASSIUM CHLORIDE 10 MEQ TABLET PO SCH ×2 (09:53→20:00)
[2021-09-02] MEDS: hydrALAZINE 25 MG TABLET PO SCH ×3 (09:53→21:30)
[2021-09-02] MEDS: PANTOPRAZOLE 40 MG TABLET PO SCH (09:54)
[2021-09-02] MEDS: amLODIPine 10 MG TABLET PO SCH (09:54)
[2021-09-02] MEDS: ALPRAZolam 0.5 MG TABLET PO SCH ×3 (09:54→20:00)
[2021-09-02] MEDS: DARIFENACIN 15 MG PO SCH (09:55)
[2021-09-02] MEDS: ATORVASTATIN 40 MG TABLET PO SCH (20:00)
[2021-09-02] MEDS: traZODone 50 MG TABLET PO SCH (20:00)
[2021-09-02] MEDS: INSULIN GLARGINE 100 UNIT/ML SUBCUT SCH (21:30)
[2021-09-03 06:21] LABS: Basophils # 0.1 10*3/uL (0.0-0.2); Basophils % 0.9 % (0.0-0.8); Eosinophils # 0.1 10*3/uL (0.0-0.87); Eosinophils % 1.7 % (0.00-10.9); Hematocrit 28.7 VOL% (35.7-47.0); Hemoglobin 9.2 GM/DL (12.0-16.0); Immature Granulocytes % 0.2 %; Immature Granulocytes Absolute 0.01 #; Lymphocytes % 17.2 % (21.3-54.2); Mean Corpuscular HGB Conc 32.1 GM/DL (32-36); Mean Corpuscular Volume 94.1 FL (87-102); Mean Platelet Volume 10.4 FL (9.6-12.0); Monocytes # 0.4 10*3/uL (0.11-0.8); Platelet Count 158 T/CUMM (130-400); Red Blood Count 3.05 MC/CUMM (3.8-5.5); Red Cell Distribution Width 17.2 % (9.3-17.3); White Blood Count 5.9 T/CUMM (4-12)
[2021-09-03] MEDS: LEVOTHYROXINE 175 MCG TABLET PO SCH (06:21)
[2021-09-03 06:39] LABS: Calcium 8.7 MG/DL (8.5-10.1); Osmolality,Calculated 298.4 MOS/KG (273-304); Potassium 4.5 MMOL/L (3.5-5.1)
[2021-09-03] MEDS ORDERED: LEVOFLOXACIN 500 MG TABLET PO ONE (08:00)
[2021-09-03 08:30] VITALS: BP 163/62
[2021-09-03] MEDS: carvediloL 25 MG TABLET PO SCH (08:45)
[2021-09-03] MEDS: FERROUS SULFATE 325 MG TABLET PO SCH (10:11)
[2021-09-03] MEDS: PANTOPRAZOLE 40 MG TABLET PO SCH (10:11)
[2021-09-03] MEDS: hydrALAZINE 25 MG TABLET PO SCH (10:11)
[2021-09-03] MEDS: FOLIC ACID 1 MG TABLET PO SCH (10:11)
[2021-09-03] MEDS: CHOLECALCIFEROL 5,000 UNIT TABLET PO SCH (10:11)
[2021-09-03] MEDS: FENOFIBRATE 145 MG TABLET PO SCH (10:11)
[2021-09-03] MEDS: cloNIDine 0.1 MG TABLET PO SCH (10:12)
[2021-09-03] MEDS: amLODIPine 10 MG TABLET PO SCH (10:12)
[2021-09-03] MEDS: POTASSIUM CHLORIDE 10 MEQ TABLET PO SCH (10:12)
[2021-09-03] MEDS: POLYETHYLENE GLYCOL POWDER 17 GM PACK PO SCH (10:13)
[2021-09-03] MEDS: ALPRAZolam 0.5 MG TABLET PO SCH (10:13)
[2021-09-03] MEDS: FLUoxetine 20 MG CAPSULE PO SCH (10:13)
[2021-09-03] MEDS: FUROSEMIDE 40 MG TABLET PO SCH (10:13)
[2021-09-03] MEDS: DOCUSATE SODIUM 100 MG CAPSULE PO SCH (10:13)
[2021-09-03] MEDS: DARIFENACIN 15 MG PO SCH (10:32)
[2021-09-04] MEDS ORDERED: LEVOFLOXACIN 250 MG TABLET PO SCH (09:00)
== END 2021-09-03 12:23 | DRG 292 ==
LOC: EDBD → EDUNIT# → N.ED 15:18 → N.EDINP 15:18 → N.TELES 21:34
PROVIDERS: ADMIT Family Medicine; ATTEND Family Medicine

== ENCOUNTER 2021-12-17 20:29 | Observation (INO) ==
[2021-12-17] MEDS ORDERED: SODIUM CHLORIDE 0.9% 500 ML IV STA (21:06)
[2021-12-17 21:52] LABS: Basophils % 0.3 % (0.0-0.8); Eosinophils # 0.2 10*3/uL (0.0-0.87); Eosinophils % 2.4 % (0.00-10.9); Hematocrit 21.7 VOL% (35.7-47.0); Hemoglobin 6.7 GM/DL (12.0-16.0); Immature Granulocytes % 0.6 %; Immature Granulocytes Absolute 0.04 #; Lymphocytes % 16.3 % (21.3-54.2); Mean Corpuscular HGB Conc 30.9 GM/DL (32-36); Mean Corpuscular Volume 100.9 FL (87-102); Mean Platelet Volume 10.1 FL (9.6-12.0); Monocytes # 0.5 10*3/uL (0.11-0.8); Monocytes % 8.1 % (1.7-12.7); Neutrophils % 72.3 % (38.7-73.9); Platelet Count 145 T/CUMM (130-400); Red Blood Count 2.15 MC/CUMM (3.8-5.5); White Blood Count 6.3 T/CUMM (4-12)
[2021-12-17 22:09] LABS: Albumin 3.7 G/DL (3.4-5.0); Bilirubin,Total 1.4 MG/DL (0.20-1.00); Calcium 8.9 MG/DL (8.5-10.1); Osmolality,Calculated 282.4 MOS/KG (273-304); Potassium 4.8 MMOL/L (3.5-5.1); Total Protein 6.4 G/DL (6.4-8.2)
[2021-12-17 22:11] LABS: Bacteria,Urine Occasional /HPF (Few); Bilirubin,Urine Negative (Negative); Blood, Urine Negative (Negative); Glucose,Urine (UA) Negative (Negative); Hyaline Casts,Urine 5 /LPF (0-3); Ketones,Urine Negative (Negative); Mucus,Urine Occasional /LPF (Occasional); Nitrite,Urine Negative (Negative); Protein,Urine Negative (Negative); RBC,Urine 4 /HPF (0-4); Squamous Epithelial Cell,Urine Occasional /HPF (0-10); Urine Appearance SL CLOUDY (Clear); Urine Color Yellow (Yellow); Urine Urobilinogen 0.2 eU/dL (<2.0)
[2021-12-17] MEDS ORDERED: cefTRIAXone 1,000 MG in SODIUM CHLORIDE 0.9% 100 ML IV STA (22:54)
[2021-12-17] MEDS ORDERED: SODIUM CHLORIDE 0.9% 1,000 ML IV PRN (23:51)
[2021-12-17] MEDS ORDERED: GLUCAGON 1 MG VIAL IM PRN (23:51)
[2021-12-17] MEDS ORDERED: DEXTROSE 10% 250 ML BAG IV PRN (23:51)
[2021-12-17] MEDS ORDERED: ACETAMINOPHEN 325 MG TABLET PO PRN (23:51)
[2021-12-17] MEDS ORDERED: ALUMINUM/MAGNES/SIMETH MAX STR 30 ML UDCUP PO PRN (23:51)
[2021-12-17] MEDS ORDERED: ONDANSETRON 4 MG/2 ML VIAL IV PRN (23:51)
[2021-12-18] MEDS ORDERED: LEVOTHYROXINE 200 MCG TABLET PO SCH (06:00)
[2021-12-18 08:11] LABS: Basophils % 0.5 % (0.0-0.8); Eosinophils # 0.2 10*3/uL (0.0-0.87); Eosinophils % 2.9 % (0.00-10.9); Hematocrit 27.5 VOL% (35.7-47.0); Hemoglobin 8.6 GM/DL (12.0-16.0); Immature Granulocytes % 0.8 %; Immature Granulocytes Absolute 0.05 #; Lymphocytes % 15.9 % (21.3-54.2); Mean Corpuscular HGB Conc 31.3 GM/DL (32-36); Mean Corpuscular Volume 99.6 FL (87-102); Mean Platelet Volume 9.9 FL (9.6-12.0); Monocytes # 0.5 10*3/uL (0.11-0.8); Monocytes % 7.5 % (1.7-12.7); Neutrophils % 72.4 % (38.7-73.9); Platelet Count 155 T/CUMM (130-400); Red Blood Count 2.76 MC/CUMM (3.8-5.5); Red Cell Distribution Width 14.6 % (9.3-17.3); White Blood Count 6.2 T/CUMM (4-12)
[2021-12-18 08:26] LABS: Calcium 7.9 MG/DL (8.5-10.1); Osmolality,Calculated 309.4 MOS/KG (273-304); Potassium 4.2 MMOL/L (3.5-5.1)
[2021-12-18 08:39] LABS: Albumin 2.1 G/DL (3.4-5.0); Bilirubin,Direct 0.25 MG/DL (0.0-0.20); Bilirubin,Indirect 0.4 MG/DL (0.0-1.0); Bilirubin,Total 0.6 MG/DL (0.20-1.00); Total Protein 5.4 G/DL (6.4-8.2)
[2021-12-18] MEDS ORDERED: carvediloL 25 MG TABLET PO SCH (09:00)
[2021-12-18] MEDS ORDERED: ENOXAPARIN 40 MG/0.4 ML SYRINGE SUBCUT SCH (09:00)
[2021-12-18] MEDS ORDERED: CHOLECALCIFEROL 5,000 UNIT TABLET PO SCH (09:00)
[2021-12-18] MEDS ORDERED: FLUoxetine 10 MG CAPSULE PO SCH (09:00)
[2021-12-18] MEDS ORDERED: POLYETHYLENE GLYCOL POWDER 17 GM PACK PO SCH (09:00)
[2021-12-18] MEDS ORDERED: ALPRAZolam 0.5 MG TABLET PO SCH (09:00)
[2021-12-18] MEDS ORDERED: FERROUS SULFATE 325 MG TABLET PO SCH (09:00)
[2021-12-18] MEDS ORDERED: cloNIDine 0.1 MG TABLET PO SCH (09:00)
[2021-12-18] MEDS ORDERED: FUROSEMIDE 40 MG TABLET PO SCH (09:00)
[2021-12-18] MEDS ORDERED: amLODIPine 10 MG TABLET PO SCH (09:00)
[2021-12-18] MEDS ORDERED: FOLIC ACID 1 MG TABLET PO SCH (09:00)
[2021-12-18] MEDS ORDERED: hydrALAZINE 25 MG TABLET PO SCH (09:00)
[2021-12-18] MEDS ORDERED: POTASSIUM CHLORIDE 10 MEQ TABLET PO SCH (09:00)
[2021-12-18] MEDS ORDERED: FENOFIBRATE 145 MG TABLET PO SCH (09:00)
[2021-12-18] MEDS ORDERED: DARIFENACIN 15 MG PO SCH (09:00)
[2021-12-18] MEDS ORDERED: PANTOPRAZOLE 40 MG TABLET PO SCH (09:00)
[2021-12-18] MEDS ORDERED: DOCUSATE SODIUM 100 MG CAPSULE PO SCH (09:00)
[2021-12-18] MEDS: INSULIN REGULAR 100 UNIT/ML SUBCUT SCH ×2 (10:07→12:00)
[2021-12-18 11:40] LABS: Hepatitis B Core IgM Quant 0.19 Index; Hepatitis B Surface Ag Quant < 0.10 Index; Hepatitis B Surface Ag Result Non-Reactive (NonReactive); Hepatitis C Virus Ab Quant 0.18 Index; Hepatitis C Virus Ab Result Non-Reactive (NonReactive)
[2021-12-18 12:30] VITALS: BP 129/58
[2021-12-18] MEDS ORDERED: ATORVASTATIN 40 MG TABLET PO SCH (21:00)
[2021-12-18] MEDS ORDERED: traZODone 50 MG TABLET PO SCH (21:00)
[2021-12-18] MEDS ORDERED: INSULIN GLARGINE 100 UNIT/ML SUBCUT SCH (21:00)
[2021-12-18] MEDS ORDERED: cefTRIAXone 1,000 MG in SODIUM CHLORIDE 0.9% 100 ML IV SCH (23:00)
== END 2021-12-18 15:11 ==
LOC: EDUNIT# → EDBD → N.EDINP 20:29 → N.ED 20:29 → SUATTDRO 23:51 → N.2W 12-18 00:38 → N.5E 12-18 07:20
PROVIDERS: ADMIT Internal Medicine; ATTEND Internal Medicine

== ENCOUNTER 2022-02-03 20:35 | Inpatient (IN) ==
[2022-02-03 20:58] LABS: Eosinophils # 0.1 10*3/uL (0.0-0.87); Eosinophils % 0.8 % (0.00-10.9); Hematocrit 24.8 VOL% (35.7-47.0); Hemoglobin 7.9 GM/DL (12.0-16.0); Immature Granulocytes % 0.5 %; Immature Granulocytes Absolute 0.03 #; Lymphocytes # 0.8 10*3/uL (1.4-4.0); Lymphocytes % 14.1 % (21.3-54.2); Mean Corpuscular HGB Conc 31.9 GM/DL (32-36); Mean Corpuscular Volume 95.4 FL (87-102); Mean Platelet Volume 10.9 FL (9.6-12.0); Monocytes # 0.4 10*3/uL (0.11-0.8); Monocytes % 6.8 % (1.7-12.7); Neutrophils % 77.8 % (38.7-73.9); Platelet Count 111 T/CUMM (130-400); Red Cell Distribution Width 15.8 % (9.3-17.3); White Blood Count 5.9 T/CUMM (4-12)
[2022-02-03 21:14] LABS: Albumin 2.1 G/DL (3.4-5.0); Bilirubin,Total 0.4 MG/DL (0.20-1.00); Calcium 8.6 MG/DL (8.5-10.1); Potassium 5.6 MMOL/L (3.5-5.1); Total Protein 5.9 G/DL (6.4-8.2)
[2022-02-03] MEDS ORDERED: SODIUM CHLORIDE 0.9% 1,000 ML IV STA (21:18)
[2022-02-03] MEDS ORDERED: DEXTROSE 50% 25 GM/50 ML VIAL IV STA (21:36)
[2022-02-03] MEDS ORDERED: DEXTROSE 10% 250 ML BAG IV STA (21:38)
[2022-02-03] MEDS ORDERED: DEXTROSE 5% NACL 0.9% 1,000 ML IV SCH (22:00)
[2022-02-03 23:31] LABS: Bacteria,Urine Moderate /HPF (Few); Bilirubin,Urine Negative (Negative); Blood, Urine Small mg/dL (Negative); Glucose,Urine (UA) Negative (Negative); Ketones,Urine Negative (Negative); Nitrite,Urine Negative (Negative); Protein,Urine Negative (Negative); RBC,Urine 9 /HPF (0-4); Squamous Epithelial Cell,Urine Occasional /HPF (0-10); Urine Appearance CLOUDY (Clear); Urine Color Amber (Yellow); Urine Urobilinogen < 2.0 eU/dL (<2.0)
[2022-02-03] MEDS ORDERED: cefTRIAXone 1,000 MG in SODIUM CHLORIDE 0.9% 100 ML IV STA (23:38)
[2022-02-03] MEDS ORDERED: ZALEPLON 5 MG CAPSULE PO PRN (23:52)
[2022-02-03] MEDS ORDERED: guaiFENesin/DM ER 600-30 MG TABLET PO PRN (23:52)
[2022-02-03] MEDS ORDERED: hydrALAZINE 20 MG/1 ML VIAL IV PRN (23:52)
[2022-02-03] MEDS ORDERED: ACETAMINOPHEN 325 MG TABLET PO PRN (23:52)
[2022-02-03] MEDS ORDERED: diphenhydrAMINE CAP 25 MG CAPSULE PO PRN (23:52)
[2022-02-03] MEDS ORDERED: ALBUTEROL/IPRATROPIUM 3 ML NEB RESP TX PRN (23:52)
[2022-02-03] MEDS ORDERED: NICOTINE 21 MG/24 HR PATCH TRANSDERM PRN (23:52)
[2022-02-03] MEDS ORDERED: GLUCAGON 1 MG VIAL IM PRN (23:52)
[2022-02-04] MEDS ORDERED: DEXTROSE 10% 250 ML BAG IV PRN (00:04)
[2022-02-04] MEDS: DEXTROSE 5% NACL 0.9% 1,000 ML IV SCH ×2 (00:10→11:19)
[2022-02-04] MEDS ORDERED: SODIUM ZIRCONIUM CYCLOSILICATE 10 GM PACK PO ONE (01:15)
[2022-02-04] MEDS ORDERED: CALCIUM GLUCONATE RIDER 1,000 MG/50 ML PREMIX IV ONE (01:15)
[2022-02-04 04:32] LABS: Eosinophils # 0.1 10*3/uL (0.0-0.87); Eosinophils % 1.3 % (0.00-10.9); Hematocrit 22.5 VOL% (35.7-47.0); Hemoglobin 7.1 GM/DL (12.0-16.0); Immature Granulocytes % 0.5 %; Immature Granulocytes Absolute 0.03 #; Lymphocytes # 0.6 10*3/uL (1.4-4.0); Lymphocytes % 11.5 % (21.3-54.2); Mean Corpuscular HGB Conc 31.6 GM/DL (32-36); Mean Corpuscular Volume 94.9 FL (87-102); Mean Platelet Volume 10.5 FL (9.6-12.0); Monocytes # 0.4 10*3/uL (0.11-0.8); Monocytes % 7.7 % (1.7-12.7); Platelet Count 106 T/CUMM (130-400); Red Blood Count 2.37 MC/CUMM (3.8-5.5); Red Cell Distribution Width 15.9 % (9.3-17.3); White Blood Count 5.6 T/CUMM (4-12)
[2022-02-04 04:45] LABS: Calcium 8.4 MG/DL (8.5-10.1); Osmolality,Calculated 317.3 MOS/KG (273-304); Potassium 5.2 MMOL/L (3.5-5.1)
[2022-02-04] MEDS: PANTOPRAZOLE 40 MG TABLET PO SCH (09:14)
[2022-02-04] MEDS: SODIUM ZIRCONIUM CYCLOSILICATE 10 GM PACK PO SCH ×3 (09:14→20:25)
[2022-02-04 12:21] LABS: Ferritin 916.1 ng/mL (8-252)
[2022-02-04] MEDS: SODIUM BICARB INJ 50 MEQ in DEXTROSE 5% 1,000 ML IV SCH (13:03)
[2022-02-04] MEDS: AZITHROMYCIN INJ 500 MG in SODIUM CHLORIDE 0.9% 250 ML IV SCH (13:10)
[2022-02-04 14:19] LABS: Folate > 24.00 NG/ML (5.38-24.0); Vitamin B12 519 PG/ML (211-911)
[2022-02-04 15:06] LABS: Basophils % 0.2 % (0.0-0.8); Eosinophils # 0.1 10*3/uL (0.0-0.87); Eosinophils % 1.1 % (0.00-10.9); Hematocrit 23.6 VOL% (35.7-47.0); Hemoglobin 7.4 GM/DL (12.0-16.0); Immature Granulocytes % 1.3 %; Immature Granulocytes Absolute 0.07 #; Lymphocytes # 0.7 10*3/uL (1.4-4.0); Lymphocytes % 12.3 % (21.3-54.2); Mean Corpuscular HGB Conc 31.4 GM/DL (32-36); Mean Corpuscular Volume 96.7 FL (87-102); Mean Platelet Volume 10.8 FL (9.6-12.0); Monocytes # 0.3 10*3/uL (0.11-0.8); Monocytes % 5.8 % (1.7-12.7); Neutrophils % 79.3 % (38.7-73.9); Platelet Count 100 T/CUMM (130-400); Red Blood Count 2.44 MC/CUMM (3.8-5.5); White Blood Count 5.4 T/CUMM (4-12)
[2022-02-04 15:31] LABS: Anisocytosis Slight; Macrocytosis Slight; Microcytosis Slight; Platelet Estimate Decreased
[2022-02-04 16:23] LABS: Sedimentation Rate-Westergren 32 MM/HR (0-30)
[2022-02-04] MEDS: ONDANSETRON 4 MG/2 ML VIAL IV PRN (18:36)
[2022-02-04] MEDS: busPIRone 5 MG TABLET PO SCH (20:25)
[2022-02-04] MEDS: FERROUS SULFATE 325 MG TABLET PO SCH (20:25)
[2022-02-04] MEDS: traZODone 50 MG TABLET PO SCH (20:25)
[2022-02-05] MEDS: cefTRIAXone 1,000 MG in SODIUM CHLORIDE 0.9% 100 ML IV SCH ×2 (00:30→23:40)
[2022-02-05] MEDS: DEXTROSE 5% NACL 0.9% 1,000 ML IV SCH ×3 (00:51→16:58)
[2022-02-05] MEDS: SODIUM BICARB INJ 50 MEQ in DEXTROSE 5% 1,000 ML IV SCH ×3 (01:15→22:35)
[2022-02-05] MEDS: LEVOTHYROXINE 200 MCG TABLET PO SCH (06:00)
[2022-02-05 06:01] LABS: Basophils % 0.2 % (0.0-0.8); Eosinophils # 0.1 10*3/uL (0.0-0.87); Eosinophils % 1.7 % (0.00-10.9); Hematocrit 23.7 VOL% (35.7-47.0); Hemoglobin 7.7 GM/DL (12.0-16.0); Immature Granulocytes % 0.5 %; Immature Granulocytes Absolute 0.03 #; Lymphocytes # 0.9 10*3/uL (1.4-4.0); Lymphocytes % 15.1 % (21.3-54.2); Mean Corpuscular HGB Conc 32.5 GM/DL (32-36); Mean Corpuscular Volume 95.2 FL (87-102); Mean Platelet Volume 11.7 FL (9.6-12.0); Monocytes # 0.4 10*3/uL (0.11-0.8); NRBC # 0.04 10*3/uL; Neutrophils % 75.5 % (38.7-73.9); Platelet Count 100 T/CUMM (130-400); Red Blood Count 2.49 MC/CUMM (3.8-5.5); Red Cell Distribution Width 16.1 % (9.3-17.3); White Blood Count 5.9 T/CUMM (4-12)
[2022-02-05 06:29] LABS: Calcium 8.2 MG/DL (8.5-10.1); Osmolality,Calculated 310.4 MOS/KG (273-304); Potassium 5.1 MMOL/L (3.5-5.1)
[2022-02-05] MEDS: FERROUS SULFATE 325 MG TABLET PO SCH ×2 (08:27→22:29)
[2022-02-05] MEDS: busPIRone 5 MG TABLET PO SCH ×2 (08:27→22:29)
[2022-02-05] MEDS: PANTOPRAZOLE 40 MG TABLET PO SCH (08:27)
[2022-02-05] MEDS: SERTRALINE 25 MG TABLET PO SCH (08:27)
[2022-02-05] MEDS: CHOLECALCIFEROL 5,000 UNIT TABLET PO SCH (08:27)
[2022-02-05] MEDS: FOLIC ACID 1 MG TABLET PO SCH (08:27)
[2022-02-05] MEDS: SODIUM ZIRCONIUM CYCLOSILICATE 10 GM PACK PO SCH ×3 (08:27→22:29)
[2022-02-05] MEDS: ONDANSETRON 4 MG/2 ML VIAL IV PRN ×3 (08:39→22:30)
[2022-02-05] MEDS ORDERED: HYDROCORTISONE 100 MG VIAL IV ONE (09:26)
[2022-02-05 12:34] LABS: Hemoglobin A1 (Alkaline) 97.5 % (96.5-98.5); Hemoglobin A2 (Alkaline) 2.5 % (1.5-3.5)
[2022-02-05] MEDS: AZITHROMYCIN INJ 500 MG in SODIUM CHLORIDE 0.9% 250 ML IV SCH (13:00)
[2022-02-05 14:50] LABS: INR 1.3; PT Patient Result 14.3 SECS (10.1-12.1)
[2022-02-05] MEDS: traZODone 50 MG TABLET PO SCH (22:29)
[2022-02-05] MEDS: ZINC OXIDE PASTE 113 GM TUBE TOP SCH (22:35)
[2022-02-06] MEDS ORDERED: PROMETHAZINE INJ 12.5 MG in SODIUM CHLORIDE 0.9% 50 ML IV ONE (02:34)
[2022-02-06] MEDS ORDERED: LACTULOSE 20 GM/30 ML UDCUP PO PRN (04:42)
[2022-02-06] MEDS: LEVOTHYROXINE 200 MCG TABLET PO SCH (06:28)
[2022-02-06 06:32] LABS: Hematocrit 23.2 VOL% (35.7-47.0); Hemoglobin 7.4 GM/DL (12.0-16.0); Immature Granulocytes % 0.6 %; Immature Granulocytes Absolute 0.04 #; Lymphocytes # 0.9 10*3/uL (1.4-4.0); Lymphocytes % 13.1 % (21.3-54.2); Mean Corpuscular HGB Conc 31.9 GM/DL (32-36); Mean Corpuscular Volume 93.9 FL (87-102); Mean Platelet Volume 10.9 FL (9.6-12.0); Monocytes # 0.3 10*3/uL (0.11-0.8); Monocytes % 4.3 % (1.7-12.7); Platelet Count 103 T/CUMM (130-400); Red Blood Count 2.47 MC/CUMM (3.8-5.5); White Blood Count 6.7 T/CUMM (4-12)
[2022-02-06 06:44] LABS: Calcium 7.9 MG/DL (8.5-10.1); Osmolality,Calculated 311.4 MOS/KG (273-304); Potassium 4.3 MMOL/L (3.5-5.1)
[2022-02-06] MEDS ORDERED: SODIUM CHLORIDE 0.9% 1,000 ML IV PRN (08:35)
[2022-02-06] MEDS: FOLIC ACID 1 MG TABLET PO SCH (09:26)
[2022-02-06] MEDS: busPIRone 5 MG TABLET PO SCH ×2 (09:26→21:38)
[2022-02-06] MEDS: CHOLECALCIFEROL 5,000 UNIT TABLET PO SCH (09:26)
[2022-02-06] MEDS: PANTOPRAZOLE 40 MG TABLET PO SCH (09:26)
[2022-02-06] MEDS: SERTRALINE 25 MG TABLET PO SCH (09:26)
[2022-02-06] MEDS: FERROUS SULFATE 325 MG TABLET PO SCH ×2 (09:26→21:38)
[2022-02-06] MEDS: ZINC OXIDE PASTE 113 GM TUBE TOP SCH ×2 (09:26→21:38)
[2022-02-06] MEDS: AZITHROMYCIN INJ 500 MG in SODIUM CHLORIDE 0.9% 250 ML IV SCH (13:12)
[2022-02-06] MEDS: LINEZOLID INJ 600 MG/300 ML PREMIX IV SCH (16:47)
[2022-02-06 17:16] LABS: Hematocrit 28.6 VOL% (35.7-47.0); Hemoglobin 9.5 GM/DL (12.0-16.0)
[2022-02-06] MEDS: SODIUM BICARB INJ 50 MEQ in DEXTROSE 5% 1,000 ML IV SCH (18:38)
[2022-02-06] MEDS: traZODone 50 MG TABLET PO SCH (21:38)
[2022-02-07] MEDS: SODIUM BICARB INJ 50 MEQ in DEXTROSE 5% 1,000 ML IV SCH (02:05)
[2022-02-07] MEDS: LINEZOLID INJ 600 MG/300 ML PREMIX IV SCH ×2 (02:06→15:31)
[2022-02-07] MEDS: LEVOTHYROXINE 200 MCG TABLET PO SCH (06:10)
[2022-02-07 06:35] LABS: Basophils % 0.5 % (0.0-0.8); Eosinophils % 0.6 % (0.00-10.9); Hematocrit 29.4 VOL% (35.7-47.0); Hemoglobin 9.7 GM/DL (12.0-16.0); Immature Granulocytes % 0.9 %; Immature Granulocytes Absolute 0.06 #; Lymphocytes # 1.1 10*3/uL (1.4-4.0); Lymphocytes % 16.7 % (21.3-54.2); Mean Corpuscular Volume 91.9 FL (87-102); Mean Platelet Volume 11.2 FL (9.6-12.0); Monocytes # 0.3 10*3/uL (0.11-0.8); Monocytes % 4.8 % (1.7-12.7); Neutrophils % 76.5 % (38.7-73.9); Red Cell Distribution Width 16.9 % (9.3-17.3); White Blood Count 6.5 T/CUMM (4-12)
[2022-02-07 06:37] LABS: Platelet Count 84 T/CUMM (130-400)
[2022-02-07 07:21] LABS: Platelet Estimate Decreased
[2022-02-07 07:34] LABS: Calcium 7.8 MG/DL (8.5-10.1); Osmolality,Calculated 300.1 MOS/KG (273-304); Potassium 4.2 MMOL/L (3.5-5.1)
[2022-02-07] MEDS: CHOLECALCIFEROL 5,000 UNIT TABLET PO SCH (09:12)
[2022-02-07] MEDS: FERROUS SULFATE 325 MG TABLET PO SCH ×2 (09:12→21:42)
[2022-02-07] MEDS: busPIRone 5 MG TABLET PO SCH ×2 (09:12→21:43)
[2022-02-07] MEDS: FOLIC ACID 1 MG TABLET PO SCH (09:12)
[2022-02-07] MEDS: ZINC OXIDE PASTE 113 GM TUBE TOP SCH ×2 (09:12→21:42)
[2022-02-07] MEDS: SODIUM BICARBONATE 650 MG TABLET PO SCH ×2 (15:30→21:42)
[2022-02-07] MEDS: traZODone 50 MG TABLET PO SCH (21:42)
[2022-02-08] MEDS: LINEZOLID INJ 600 MG/300 ML PREMIX IV SCH ×2 (02:29→14:12)
[2022-02-08 05:56] LABS: Basophils % 0.2 % (0.0-0.8); Eosinophils % 0.2 % (0.00-10.9); Hematocrit 28.7 VOL% (35.7-47.0); Hemoglobin 9.5 GM/DL (12.0-16.0); Immature Granulocytes % 0.3 %; Immature Granulocytes Absolute 0.03 #; Lymphocytes # 0.7 10*3/uL (1.4-4.0); Mean Corpuscular HGB Conc 33.1 GM/DL (32-36); Mean Corpuscular Volume 91.1 FL (87-102); Mean Platelet Volume 10.8 FL (9.6-12.0); Monocytes # 0.3 10*3/uL (0.11-0.8); Monocytes % 3.2 % (1.7-12.7); Neutrophils % 89.1 % (38.7-73.9); Red Blood Count 3.15 MC/CUMM (3.8-5.5); Red Cell Distribution Width 16.5 % (9.3-17.3)
[2022-02-08 06:00] LABS: Platelet Count 73 T/CUMM (130-400)
[2022-02-08] MEDS: LEVOTHYROXINE 200 MCG TABLET PO SCH (06:20)
[2022-02-08 06:21] LABS: Calcium 7.6 MG/DL (8.5-10.1); Osmolality,Calculated 306.7 MOS/KG (273-304); Potassium 3.2 MMOL/L (3.5-5.1)
[2022-02-08 06:44] LABS: Platelet Estimate Decreased
[2022-02-08] MEDS ORDERED: POTASSIUM CHLORIDE 20 MEQ TABLET PO ONE (08:03)
[2022-02-08] MEDS: ZINC OXIDE PASTE 113 GM TUBE TOP SCH (09:23)
[2022-02-08] MEDS: FOLIC ACID 1 MG TABLET PO SCH (09:23)
[2022-02-08] MEDS: CHOLECALCIFEROL 5,000 UNIT TABLET PO SCH (09:23)
[2022-02-08] MEDS: busPIRone 5 MG TABLET PO SCH (09:23)
[2022-02-08] MEDS: SODIUM BICARBONATE 650 MG TABLET PO SCH (09:23)
[2022-02-08] MEDS: FERROUS SULFATE 325 MG TABLET PO SCH (09:23)
[2022-02-08] MEDS ORDERED: FOSFOMYCIN 3 GM PACK PO ONE (12:00)
[2022-02-08 12:13] VITALS: BP 121/60
[2022-02-08] MEDS ORDERED: MIRTAZAPINE 15 MG TABLET PO SCH (21:00)
== END 2022-02-08 14:40 | DRG 682 ==
LOC: EDUNIT# → N.ED 20:35 → N.EDINP 23:52 → N.TELEN 02-04 14:29
PROVIDERS: ADMIT Internal Medicine; ATTEND Internal Medicine